=== PATIENT | male | born 1955 | race Caucasian/White ===

== ENCOUNTER 2018-03-31 14:01 | Inpatient (IN) | payer OTHER ==
[2018-03-31] MEDS ORDERED: FUROSEMIDE 40 MG/4 ML VIAL ONE (14:46)
[2018-03-31] MEDS ORDERED: METOPROLOL TARTRATE 5 MG/5 ML INJ IV ONE (14:46)
[2018-03-31] MEDS ORDERED: DIGOXIN 0.25 MG/ML AMP ONE (14:46)
[2018-03-31 15:06] LABS: Absolute Lymphocytes (CBC) 0.8 K/uL (0.7-4.9); Absolute Monocytes 0.4 K/uL (0.1-1.3); Absolute Neutrophil 6.7 K/uL (1.8-8.0); Basophils % 1.1 % (0-1.3); Eosinophils % 5.1 % (0-4.4); Hematocrit 31.2 % (39.6-49.0); Lymphocytes % 9.9 % (15.3-44.8); MCH 32.3 pg (27.0-35.0); MCV 98.3 fL (80-100); MPV 10.6 fL (7.6-11.3); Monocytes % 4.8 % (3.3-12.3); RBC Red Blood Cell Count 3.18 M/uL (4.33-5.43)
[2018-03-31 15:12] LABS: Protime INR 1.18
[2018-03-31 15:47] LABS: Albumin 2.7 g/dL (3.4-5.0); Bilirubin Direct 0.3 mg/dL (0-0.2); Bilirubin Total 0.8 mg/dL (0.2-1.0); Magnesium 2.9 mg/dL (1.8-2.4); Troponin (Emerg Dept Use Only) 0.06 ng/mL (0.0-0.045)
[2018-03-31 16:05] LABS: Urine Blood TRACE (NEG); Urine Glucose TRACE (NEG); Urine Protein 3+ (NEG)
--- NOTE | 2018-03-31 16:35 | EDPHYS ---
Physician Documentation [facility] Name: Remington Shaver Age: 62 yrs Sex: Male : 1955 Arrival Date: 03/31/2018 Time: 14:07 Bed 18 Private MD: Taye Finch ED Physician Delfino Dominguez HPI: 03/31 14:59 This 62 yrs old Male presents to ER via Ambulatory with complaints of jr8 Shortness Of Breath. 14:59 The patient has shortness of breath at rest. Onset: The symptoms/episode began/occurred jr8 gradually, 1 week(s) ago. Duration: The symptoms are continuous. The patient's shortness of breath is aggravated by walking. Associated signs and symptoms: Pertinent negatives: non-productive cough, dizziness, fever, hemoptysis, nausea, vomiting. Severity of symptoms: At their worst the symptoms were moderate in the emergency department the symptoms are unchanged. It is unknown whether or not the patient has had similar symptoms in the past. The patient has not recently seen a physician. Patient with history of CHF, ESRD. Non compliant. Stated that he has had increased swelling over the past week or so. Stated that he is now having shortness of breath . Historical: - Allergies: 14:14 PENICILLINS; hj - Home Meds: 14:14 hydrochlorothiazide 80 mg Oral tab 1 tab once daily [Active]; hj - PMHx: 14:14 CHF; Diabetes - NIDDM; Hypertension; kidney disease; hj - PSHx: 14:14 R foor partial amputaion; Appendectomy; hj - Immunization history:: Adult Immunizations not up to date. - Social history:: Smoking status: Patient uses tobacco products, smokes one pack cigarettes per day. Patient/guardian denies using alcohol. - Ebola Screening: : Patient negative for fever greater than or equal to 101.5 degrees Fahrenheit, and additional compatible Ebola Virus Disease symptoms Patient denies exposure to infectious person Patient denies travel to an Ebola-affected area in the 21 days before illness onset. ROS: 14:59 Eyes: Negative for injury, pain, redness, and discharge, ENT: Negative for injury, jr8 pain, and discharge, Neck: Negative for injury, pain, and swelling, Abdomen/GI: Negative for abdominal pain, nausea, vomiting, diarrhea, and constipation, Back: Negative for injury and pain, MS/Extremity: Negative for injury and deformity, Skin: Negative for injury, rash, and discoloration, Neuro: Negative for headache, weakness, numbness, tingling, and seizure. 14:59 Cardiovascular: Positive for chest pain, edema, orthopnea. 14:59 Respiratory: Positive for orthopnea, shortness of breath. Exam: 14:59 Eyes: Pupils equal round and reactive to light, extra-ocular motions intact. Lids and jr8 lashes normal. Conjunctiva and sclera are non-icteric and not injected. Cornea within normal limits. Periorbital areas with no swelling, redness, or edema. ENT: Nares patent. No nasal discharge, no septal abnormalities noted. Tympanic membranes are normal and external auditory canals are clear. Oropharynx with no redness, swelling, or masses, exudates, or evidence of obstruction, uvula midline. Mucous membranes moist. Neck: Trachea midline, no thyromegaly or masses palpated, and no cervical lymphadenopathy. Supple, full range of motion without nuchal rigidity, or vertebral point tenderness. No Meningismus. Abdomen/GI: Soft, non-tender, with normal bowel sounds. No distension or tympany. No guarding or rebound. No evidence of tenderness throughout. Back: No spinal tenderness. No costovertebral tenderness. Full range of motion. Skin: Warm, dry with normal turgor. Normal color with no rashes, no lesions, and no evidence of cellulitis. MS/ Extremity: Pulses equal, no cyanosis. Neurovascular intact. Full, normal range of motion. Neuro: Awake and alert, GCS 15, oriented to person, place, time, and situation. Cranial nerves II-XII grossly intact. Motor strength 5/5 in all extremities. Sensory grossly intact. Cerebellar exam normal. Normal gait. 14:59 Cardiovascular: Rate: tachycardic, Rhythm: irregularly irregular, Pulses: Pulses are 2+ in right radial artery and left radial artery. Heart sounds: normal, normal S1and S2, no S3 or S4, no murmur, no rub, no gallop, Edema: 3+ edema to level of waist, pubic area, left upper thigh, left lower thigh, left knee, left midcalf, left ankle, left foot, right upper thigh, right lower thigh, right knee, right midcalf, right ankle and right foot. 14:59 Respiratory: the patient does not display signs of respiratory distress, Respirations: normal, symetrical, no use of accessory muscles, no grunting, no evidence of nasal flaring, no prolonged exhalations, no pursed lip breathing, no retractions, no shallow respirations, no splinting, no tachypnea, Breath sounds: wheezing: expiratory that is mild, is heard diffusely. Vital Signs: 14:16 BP 132 / 84; Pulse 115; Resp 20; Temp 97.5(TE); Pulse Ox 96% on R/A; Weight 95.25 kg; hj Height 5 ft. 11 in. (180.34 cm); Pain 7/10; 14:30 BP 125 / 80; Pulse 134; Resp 22 S; Pulse Ox 97% on R/A; jl7 14:40 BP 125 / 80; Pulse 160; Resp 22 S; Pulse Ox 96% on R/A; jl7 14:45 BP 128 / 89; Pulse 147; Resp 20 S; Pulse Ox 97% on R/A; jl7 14:59 BP 128 / 89; Pulse 119; Resp 20; Pulse Ox 95% on R/A; mh5 15:58 BP 122 / 70; Pulse 107; Resp 21; Pulse Ox 98% on R/A; jl7 17:13 BP 120 / 85; Pulse 123; Resp 24 S; Pulse Ox 96% on R/A; jl7 18:11 BP 137 / 97; Pulse 127; Resp 18 S; Pulse Ox 97% on R/A; jl7 19:04 BP 127 / 85; Pulse 114; Resp 19; Pulse Ox 98% on R/A; lp1 14:16 Body Mass Index 29.29 (95.25 kg, 180.34 cm) hj 14:40 provider notified of HR jl7 MDM: 14:18 Patient medically screened. deacon 16:33 Data reviewed: vital signs, nurses notes, lab test result(s), EKG, radiologic studies, jr8 CT scan, plain films. Data interpreted: Pulse oximetry: on room air is 98 %. Interpretation: normal. Counseling: I had a detailed discussion with the patient and/or guardian regarding: the historical points, exam findings, and any diagnostic results supporting the discharge/admit diagnosis, lab results, radiology results, the need for further work-up and treatment in the hospital. Physician consultation: Elisa Hamilton MD was called at 16:33, was contacted at 16:33, regarding admission, to the telemetry unit. consult, patient's condition, and will see patient. 03/31 14:36 Order name: Basic Metabolic Panel; Complete Time: 15:54 8 03/31 14:36 Order name: CBC with Diff; Complete Time: 15:08 8 03/31 14:36 Order name: LFT's; Complete Time: 15:54 jr8 03/31 14:36 Order name: Magnesium; Complete Time: 15:54 jr8 03/31 14:36 Order name: NT PRO-BNP; Complete Time: 15:54 8 03/31 14:36 Order name: PT-INR; Complete Time: 15:37 8 03/31 14:36 Order name: Troponin (emerg Dept Use Only); Complete Time: 15:54 jr8 03/31 15:26 Order name: Urine Dipstick--Ancillary (enter results); Complete Time: 16:23 bd 03/31 16:53 Order name: CBC with Automated Diff EDMS 03/31 16:53 Order name: CBC with Automated Diff; Complete Time: 17:56 EDMS 03/31 16:53 Order name: CBC with Automated Diff EDMS 03/31 16:53 Order name: CBC with Automated Diff EDMS 03/31 16:53 Order name: Comprehensive Metabolic Panel EDMS 03/31 16:53 Order name: Comprehensive Metabolic Panel; Complete Time: 17:56 EDMS 03/31 14:36 Order name: XRAY Chest (1 view); Complete Time: 17:56 8 03/31 14:36 Order name: EKG; Complete Time: 14:37 8 03/31 14:36 Order name: Cardiac monitoring; Complete Time: 15:04 8 03/31 14:36 Order name: EKG - Nurse/Tech; Complete Time: 14:58 8 03/31 14:36 Order name: IV Saline Lock; Complete Time: 15:04 8 03/31 14:36 Order name: Labs collected and sent; Complete Time: 15:04 8 03/31 15:56 Order name: CT Chest Wo Con; Complete Time: 16:47 8 03/31 16:46 Order name: CONS Physician Consult EDMT 03/31 16:53 Order name: CONS Physician Consult EDMT 03/31 16:53 Order name: Renal EDMT 03/31 16:53 Order name: Echo with Doppler EDMT 03/31 16:53 Order name: Comprehensive Metabolic Panel EDMT 03/31 16:53 Order name: Comprehensive Metabolic Panel EDMT 03/31 14:36 Order name: O2 Per Protocol; Complete Time: 15:04 jr8 03/31 14:36 Order name: O2 Sat Monitoring; Complete Time: 15:04 jr8 03/31 14:36 Order name: Sorto; Complete Time: 14:57 jr8 Administered Medications: 14:42 Drug: Digoxin 0.5 mg Route: IVP; Site: left wrist; ss 15:49 Follow up: Response: No adverse reaction jl7 14:47 Drug: Metoprolol 5 mg Route: IVP; Site: right antecubital; ss 15:49 Follow up: Response: No adverse reaction jl7 14:54 Drug: Lasix 40 mg Route: IVP; Site: left wrist; ss 15:49 Follow up: Response: No adverse reaction jl7 Disposition: 04/01 07:15 Co-signature as Attending Physician, Delfino Dominguez MD I agree with the assessment and deacon plan of care. Disposition: 03/31/18 16:35 Hospitalization ordered by Elisa Hamilton for Inpatient Admission. Preliminary diagnosis are Acute combined systolic (congestive) and diastolic (congestive) heart failure, Chronic kidney disease (CKD), Anasarca , Atrial fibrillation and flutter - with RVR. - Bed requested for Telemetry/MedSurg (Inpatient). - Status is Inpatient Admission. lp1 - Condition is Fair. - Problem is new. - Symptoms have improved. UTI on Admission? No Signatures: Dispatcher [employer] [facility] Lilia Quintero Delfino Dominguez MD MD cha Smirch, Shelby, RN RN ss Niecy Hudson RN RN lp1 Tulio Carvajal PA PA jr8 Enoch Lobato RN RN hj Leal, Jahala RN jl7 Corrections: (The following items were deleted from the chart) 03/31 18:13 16:35 Hospitalization Ordered by Elisa Hamilton MD for Inpatient Admission. Preliminary bd diagnosis is Acute combined systolic (congestive) and diastolic (congestive) heart failure; Chronic kidney disease (CKD); Anasarca ; Atrial fibrillation and flutter - with RVR. Bed requested for Telemetry/MedSurg (Inpatient). Status is Inpatient Admission. Condition is Fair. Problem is new. Symptoms have improved. UTI on Admission? No. jr8 20:01 18:13 03/31/2018 16:35 Hospitalization Ordered by Elisa Hamilton MD for Inpatient lp1 Admission. Preliminary diagnosis is Acute combined systolic (congestive) and diastolic (congestive) heart failure; Chronic kidney disease (CKD); Anasarca ; Atrial fibrillation and flutter - with RVR. Bed requested for Telemetry/MedSurg (Inpatient). Status is Inpatient Admission. Condition is Fair. Problem is new. Symptoms have improved. UTI on Admission? No. bd
--- NOTE | 2018-03-31 16:35 | ER ---
Nurse's Notes [facility] Name: Remington Shaver Age: 62 yrs Sex: Male : 1955 Arrival Date: 03/31/2018 Time: 14:07 Bed 18 Private MD: Taye Finch Diagnosis: Acute combined systolic (congestive) and diastolic (congestive) heart failure;Chronic kidney disease (CKD);Anasarca ;Atrial fibrillation and flutter-with RVR Presentation: 03/31 14:09 Presenting complaint: Patient states: i started having shortness of breath for 2 weeks hj now, i think im retaining fluids again; i feel like my legs, my belly and face are swollen; and this sore throat of mine started 2 weeks ago too; denies fever and chills; reports cough;. Transition of care: patient was not received from another setting of care. Onset of symptoms was March 18, 2018. Risk Assessment: Do you want to hurt yourself or someone else? Patient reports no desire to harm self or others. Initial Sepsis Screen: Does the patient meet any 2 criteria? No. Patient's initial sepsis screen is negative. Does the patient have a suspected source of infection? No. Patient's initial sepsis screen is negative. Care prior to arrival: None. 14:09 Method Of Arrival: Ambulatory 14:09 Acuity: TOMASA 3 hj Triage Assessment: 14:15 General: Appears in no apparent distress. uncomfortable, Behavior is calm, cooperative, hj appropriate for age. Pain: Complains of pain in throat. EENT: Reports pain in throat. Historical: - Allergies: 14:14 PENICILLINS; - Home Meds: 14:14 hydrochlorothiazide 80 mg Oral tab 1 tab once daily [Active]; - PMHx: 14:14 CHF; Diabetes - NIDDM; Hypertension; kidney disease; - PSHx: 14:14 R foor partial amputaion; Appendectomy; hj - Immunization history:: Adult Immunizations not up to date. - Social history:: Smoking status: Patient uses tobacco products, smokes one pack cigarettes per day. Patient/guardian denies using alcohol. - Ebola Screening: : Patient negative for fever greater than or equal to 101.5 degrees Fahrenheit, and additional compatible Ebola Virus Disease symptoms Patient denies exposure to infectious person Patient denies travel to an Ebola-affected area in the 21 days before illness onset. Screenin:15 Abuse screen: Denies threats or abuse. Denies injuries from another. Nutritional hj screening: No deficits noted. Tuberculosis screening: No symptoms or risk factors identified. Fall Risk None identified. Assessment: 14:15 Respiratory: Airway is patent Respiratory effort is even, unlabored, Respiratory hj pattern is regular, symmetrical, EENT: Throat. 14:30 General: Appears in no apparent distress. uncomfortable, Behavior is calm, cooperative, jl7 appropriate for age. Pain: Denies pain. Neuro: Level of Consciousness is awake, alert, obeys commands, Oriented to person, place, time, situation. Cardiovascular: Heart tones present Patient's skin is warm and dry. Respiratory: Airway is patent Respiratory effort is even, unlabored, Respiratory pattern is regular, symmetrical, Breath sounds with wheezes bilaterally. GI: No signs and/or symptoms were reported involving the gastrointestinal system. : No signs and/or symptoms were reported regarding the genitourinary system. EENT: Throat is clear. Derm: Skin is dry, Skin is pale, Skin temperature is warm. Musculoskeletal: No signs and/or symptoms reported regarding the musculoskeletal system. 15:30 Reassessment: Patient appears in no apparent distress at this time. Patient and/or jl7 family updated on plan of care and expected duration. Pain level reassessed. Patient is alert, oriented x 3, equal unlabored respirations, skin warm/dry/pink. 16:30 Reassessment: Patient and/or family updated on plan of care and expected duration. Pain jl7 level reassessed. Patient is alert, oriented x 3, equal unlabored respirations, skin warm/dry/pink. 17:10 Reassessment: Dr. Hamilton at bedside discussing plan of care. jl7 17:40 Reassessment: [place] please pass on to floor nurse to call jl7 his niece, She Gonzalez at [phone]. 18:12 Reassessment: Pt laying in bed with eyes closed, respirations even and unlabored, no jl7 signs of distress noted at this time. 18:25 Reassessment: Called floor to give report at 1815, placed on hold for 5 minutes, hung jl7 up and called back at 1820, placed on hold for 5 minutes, hung up and called back at 1825. Night charge nurse stated she will night nurse call back at 1845 prior to shift change. 19:03 Reassessment: Patient appears in no apparent distress at this time. Patient and family lp1 aware of pending admission. Neuro: Level of Consciousness is awake, alert, obeys commands. Respiratory: Respiratory effort is even. Derm: Skin is intact, Skin is dry, Skin is pale. Vital Signs: 14:16 BP 132 / 84; Pulse 115; Resp 20; Temp 97.5(TE); Pulse Ox 96% on R/A; Weight 95.25 kg; hj Height 5 ft. 11 in. (180.34 cm); Pain 7/10; 14:30 BP 125 / 80; Pulse 134; Resp 22 S; Pulse Ox 97% on R/A; jl7 14:40 BP 125 / 80; Pulse 160; Resp 22 S; Pulse Ox 96% on R/A; jl7 14:45 BP 128 / 89; Pulse 147; Resp 20 S; Pulse Ox 97% on R/A; jl7 14:59 BP 128 / 89; Pulse 119; Resp 20; Pulse Ox 95% on R/A; mh5 15:58 BP 122 / 70; Pulse 107; Resp 21; Pulse Ox 98% on R/A; jl7 17:13 BP 120 / 85; Pulse 123; Resp 24 S; Pulse Ox 96% on R/A; jl7 18:11 BP 137 / 97; Pulse 127; Resp 18 S; Pulse Ox 97% on R/A; jl7 19:04 BP 127 / 85; Pulse 114; Resp 19; Pulse Ox 98% on R/A; lp1 14:16 Body Mass Index 29.29 (95.25 kg, 180.34 cm) hj 14:40 provider notified of HR jl7 ED Course: 14:07 Patient arrived in ED. mr 14:07 Taye Finch MD is Private Physician. mr 14:12 Triage completed. hj 14:15 Arm band placed on right wrist. hj 14:16 Patient has correct armband on for positive identification. Placed in gown. Bed in low hj position. Call light in reach. Side rails up X 1. 14:17 security monitor on. Pulse ox on. NIBP on. jl7 14:17 Warm blanket given. jl7 14:18 Delfino Dominguez MD is Attending Physician. [facility] 14:20 Initial lab(s) drawn, by me, sent to lab. Inserted saline lock: 20 gauge in right jl7 antecubital area, using aseptic technique. Blood collected. 14:25 Inserted saline lock: 22 gauge in left wrist, using aseptic technique. jl7 14:25 EKG done, by ED staff, reviewed by Tulio JEFFERSON. jl7 14:28 Tulio Carvajal PA is PHCP. jr8 14:56 Urine collected: clean catch specimen, clear. Sorto cath inserted, using sterile mh5 technique, 16 Fr., by me, balloon inflated, urine specimen collected. 15:41 XRAY Chest (1 view) In Process Unspecified. EDMS 15:41 X-ray completed. Portable x-ray completed in exam room. Patient tolerated procedure ka well. 15:44 Primary Nurse role handed off by Gloria Garner RN jl7 15:44 Terrell Collazo, SHEY is Primary Nurse. jl7 16:[address] via stretcher. nj 16:21 CT completed. Patient tolerated procedure well. Patient moved back from CT. nj 16:22 CT Chest Wo Con In Process Unspecified. EDMS 16:34 Elisa Hamilton MD is Hospitalizing Provider. jr8 18:59 Primary Nurse role handed off by Terrell Collazo RN jl7 19:03 Niecy Hudson, SHEY is Primary Nurse. lp1 19:04 No provider procedures requiring assistance completed. Patient admitted, IV remains in lp1 place. Administered Medications: 14:42 Drug: Digoxin 0.5 mg Route: IVP; Site: left wrist; ss 15:49 Follow up: Response: No adverse reaction jl7 14:47 Drug: Metoprolol 5 mg Route: IVP; Site: right antecubital; ss 15:49 Follow up: Response: No adverse reaction jl7 14:54 Drug: Lasix 40 mg Route: IVP; Site: left wrist; ss 15:49 Follow up: Response: No adverse reaction jl7 Outcome: 16:35 Decision to Hospitalize by Provider. jr8 19:05 Condition: stable lp1 19:05 Instructed on the need for admit. 19:33 Admitted to Med/surg accompanied by tech, via stretcher, room 221, with chart, Report lp1 called to SHEY Mckenzie 20:01 Patient left the ED. lp1 Signatures: Dispatcher [employer] EDMS Delfino Dominguez MD MD cha Rivera, [place] mr Gloria Garner RN RN Niecy Hudson RN RN lp1 Tulio Carvajal, Enoch Mata RN RN Carolin [place], Hanny Mckeon [facility] Terrell Collazo RN RN jl7 Corrections: (The following items were deleted from the chart) 15:01 14:42 Digoxin 0.5 mg IVP in left antecubital ss 15:44 14:38 Gloria Garner RN is Primary Nurse. [facility] 17:12 15:58 BP 122 / 70; Pulse 57bpm; Resp 21bpm; Pulse Ox 98% RA; [facility]7
--- NOTE | 2018-03-31 16:42 | RAD REPORT ---
EXAM DESCRIPTION: CT - Thorax Wo Con - 03/31/2018 4:22 pm CLINICAL HISTORY: Shortness of breath COMPARISON: Portable chest March 31 TECHNIQUE: Axial 5 mm thick images of the chest were obtained without IV contrast. All CT scans are performed using dose optimization technique as appropriate and may include automated exposure control or mA/KV adjustment according to patient size. FINDINGS: No focal consolidation or underlying mass lesion. There is hazy ground-glass opacification in the aerated lung sanchez that may be mild alveolar edema or atelectasis. Infection is unlikely. A large right pleural effusion is present. There is complete right lower lobe atelectasis and partial l eft middle lobe atelectasis. Minimal pleural thickening on the right side as well. No left-sided pleu ral effusion. There is no pneumothorax. No abnormal mediastinal or hilar masses or lymphadenopathy seen. No gross aortic or pulmonary artery finding suspected. No pericardial thickening or effusion. Coronary artery calcifications are present . No chest wall mass or abnormal axillary lymphadenopathy. Mild bilateral gynecomastia. Thoracic spine degenerative changes are present. IMPRESSION: Large right pleural effusion with complete right lower lobe and partial right middle lob e atelectasis. Hazy ground-glass opacities in the lung sanchez could be atelectasis or alveolar edema. Infection is n ot suspected.
[2018-03-31] MEDS ORDERED: ACETAMINOPHEN 500 MG TAB PO PRN (16:46)
[2018-03-31] MEDS ORDERED: METOPROLOL TARTRATE 5 MG/5 ML INJ IV PRN (16:46)
[2018-03-31] MEDS ORDERED: ONDANSETRON 4 MG/2 ML VIAL IV PRN (16:46)
[2018-03-31] MEDS ORDERED: ALBUTEROL 2.5 MG/3 ML NEB SOL NEB PRN (16:46)
--- NOTE | 2018-03-31 17:35 | RAD REPORT ---
EXAM DESCRIPTION: Renéet Single View03/31/2018 3:41 pm CLINICAL HISTORY: sob COMPARISON: 2016 FINDINGS: Moderate right pleural effusion is present with right basilar atelectasis. Left lung appears clear of acute infiltrate. The heart is mildly enlarged IMPRESSION: Moderate right pleural effusion
[2018-03-31 21:21] LABS: Thyroid Stimulating Hormone 6.04 uIU/mL (0.360-3.740)
[2018-03-31] MEDS: FUROSEMIDE 40 MG/4 ML VIAL IV SCH (22:19)
[2018-03-31] MEDS: ENOXAPARIN 100 MG/ML SYR SQ SCH (22:19)
[2018-03-31] MEDS: METOPROLOL TAR 25 MG TAB PO SCH (22:20)
[2018-03-31] MEDS: INSULIN -REGULAR HUMAN 50 UNIT/0.5 ML ML SQ SCH (22:21)
[2018-03-31] MEDS: SODIUM BICARB 325 MG TAB PO SCH (22:21)
--- NOTE | 2018-03-31 23:08 | EKG ---
Test Date: 2018-03-31 Test Time: 14:25:51 Coordinate Measuring Machine Operator: JEREMY MEASUREMENT RESULTS: Intervals: Rate: 137 ND: QRSD: 94 QT: 318 QTc: 480 [place]: P: ND: QRS: 40 T: 246 INTERPRETIVE STATEMENTS: Atrial fibrillation with rapid ventricular response with premature ventricular or aberrantly conducted complexes Low voltage QRS Nonspecific ST and T wave abnormality Abnormal ECG Compared to ECG 04/13/2015 18:24:20 Ventricular premature complex(es) now present Low QRS voltage now present ST (T wave) deviation now present Sinus tachycardia no longer present Electronically Signed On 03-31-18 23:08:11 CDT by Lauri Valdez
[2018-03-31 23:50] LABS: Urine Appearance CLEAR; Urine Bilirubin NEGATIVE (NEG); Urine Blood 2+ (NEG); Urine Color YELLOW; Urine Glucose NEGATIVE (NEG); Urine Protein 2+ (NEG); Urine Urobilinogen 0.2 mg/dL (0.2-1.0); Urine pH 5.5 (5.0-7.0)
[2018-04-01 00:21] LABS: UR MICROALBUMIN 70.4 mg/dL (< 1.9)
[2018-04-01 00:33] LABS: Urine Bacteria <20 /HPF (NONE SEEN); Urine Culture Reflex Order REFLEXED; Urine RBC 20-50 /HPF (NONE SEEN)
[2018-04-01 01:10] VITALS: BMI 33.6
--- NOTE | 2018-04-01 02:07 | HP ---
Date of Admission: 03/31/2018 Consultants: Dr. Valdez with Cardiology and Dr. Eagle with Nephrology. Primary Care Physician: Taye Finch M.D. Code Status: Full. Chief Complaint: Shortness of breath, cough, generalized malaise. History Of Present Illness: The patient is a 62-year-old male with past medical history of diabetes, hypertension, apparent kidney issues after nephropathy from antibiotics when the patient had a one m onth stay in the hospital for his diabetic foot wound with complications and sepsis, as well as histo ry of 3-pack per day tobacco use, comes in with 2 week duration of shortness of breath, dyspnea upon exertion, lower extremity swelling, edema, and some dry cough. The patient denies any fevers, does r eport some chills. No ill contacts. No sputum production. The patient's symptoms are constant, mod erate, progressively worsening, gradual. The patient is noncompliant with his medications. He state s he just does not want to take them because he is "bullet proof." The patient's vital signs upon ar rival showed heart rate in the 150s. He was in atrial fibrillation. His workup revealed normal whit e count. His creatinine was elevated at 5.6, which is above his baseline of about 2.5 from 2016. e patient's BNP was 30,000. He was given digoxin, Lopressor, and Lasix. His rate improved to the 11 0s to 120s. He was then referred for admission. When seen in the ER, he was awake, alert, oriented x3, in some moderate distress. Past Medical History: Diabetes, hypertension, chronic kidney disease. The patient states he does no t have COPD despite being listed in his medical history. Past Surgical History: Right foot amputation, appendectomy, dental extractions. Allergies: PENICILLIN, CAUSES ANAPHYLAXIS. Home Medications: None. Social History: The patient smokes 3 packs per day for several years. No alcohol use or illicit doug g use. The patient lives at home by himself. Independent in his activities of daily living. Family History: Mother had heart disease. Father had heart disease, GI disease, and liver disease. Review of Systems: An 11-point system reviewed, negative except as per HPI. Physical Examination: Vital Signs: Blood pressure 132/84, pulse 115, respirations 20, temperature 97.5, O2 96% on room air . General: Awake, alert, oriented x3, in some moderate respiratory distress, appears older than stated age, ill-appearing male. HEENT: Normocephalic, atraumatic. PERRLA. EOMI. Dry mucous membranes. Oropharynx is clear. Poor dentition. Conjunctiva is anicteric. Neck: Supple. The patient has jugular venous distention. Trachea midline. CV: S1, S2. Irregularly irregular, rapid rate. Peripheral pulses are weak bilaterally. No murmurs . Respiratory: Diminished breath sounds on the right. Crackles are heard. No wheezing or stridor. T he patient is tachypneic, use of accessory muscles present. Gastrointestinal: Abdomen is soft, distended, and nontender. Positive bowel sounds. No guarding or rigidity. Extremities: No clubbing or cyanosis. The patient has 3+ edema of bilateral lower extremities. No calf tenderness. Neuro: Cranial nerves 2 through 12 intact grossly. No focal neurological deficit. Speech is normal . Strength is 5/5 bilateral lower extremities. Musculoskeletal: The patient has right foot amputation. Skin: The patient has chronic venous stasis changes of the lower extremities. Otherwise, no rashes. Psych: Mood is okay. Affect is full. Insight and judgment are poor. Laboratory Data: Sodium 142, potassium 5, chloride 113, CO2 19, BUN 84, creatinine 5.6, glucose 287, calcium 7.1, magnesium 2.9. Troponin 0.06. BNP 30,808. Albumin 2.7. WBC 8.5, H and H 10.3 and 31 .2, platelets 195, neutrophils 71%. INR 1.18. UA shows negative nitrite, negative leukocyte esteras e, 3+ protein. CT scan of the chest, personally reviewed, shows large right pleural effusion with co mplete right lower lobe and partial right middle lobe atelectasis, hazy ground-glass opacities in the lung sanchez, could be atelectasis or alveolar edema, infection not suspected. Chest x-ray shows mod erate right pleural effusion. Assessment: A 62-year-old male with 1.Acute respiratory distress. 2.Atrial fibrillation with rapid ventricular response, new onset. 3.Noncompliance. 4.Essential hypertension. 5.Acute on chronic kidney disease. 6.Diabetes mellitus type 2, [id number], with hyperglycemia. 7.Normocytic, normochromic anemia. 8.Mild protein calorie malnutrition. Albumin is 2.7. 9.Hypocalcemia. 10.Gastrointestinal and deep venous thrombosis prophylaxis with proton pump inhibitor and Lovenox. Plan: Admit the patient to Med-Surg, place as inpatient with remote cardiac telemetry. Will start o n sliding scale insulin. Will have Lopressor IV p.r.n. for rate greater than 130. Will start on met oprolol. Cardiology has been consulted. We will continue with Lasix IV. We will hold off on RICK in hibitor due to elevated creatinine. We will consult Nephrology, Dr. Eagle. We will monitor creati nine, and I and Os, daily weights. Fluid restricted diet. BNP is elevated at 30,000. Chest x-ray d oes show some large pleural effusions and atelectasis. We will continue to monitor. May need dialys is if unable to have good urinary output and if he does not respond to Lasix. Overall, the patient h as a guarded prognosis due to his condition and noncompliance. /ADAN Voice ID: [id number]
[2018-04-01] MEDS: METOPROLOL TAR 25 MG TAB PO SCH ×2 (05:28→17:05)
[2018-04-01 05:48] LABS: Absolute Monocytes 0.5 K/uL (0.1-1.3); Absolute Neutrophil 7.2 K/uL (1.8-8.0); Basophils % 1.3 % (0-1.3); Eosinophils % 5.3 % (0-4.4); Hematocrit 29.7 % (39.6-49.0); Lymphocytes % 10.2 % (15.3-44.8); MCV 97.6 fL (80-100); MPV 10.6 fL (7.6-11.3); Monocytes % 5.2 % (3.3-12.3); RBC Red Blood Cell Count 3.04 M/uL (4.33-5.43)
[2018-04-01 06:02] LABS: Albumin 2.6 g/dL (3.4-5.0); Bilirubin Total 0.7 mg/dL (0.2-1.0); Phosphorus 6.6 mg/dL (2.5-4.9); Potassium 5.3 mmol/L (3.5-5.1); Protein, Total 6.8 g/dL (6.4-8.2); Uric Acid 11.5 mg/dL (3.5-7.2)
[2018-04-01] MEDS: INSULIN -REGULAR HUMAN 50 UNIT/0.5 ML ML SQ SCH ×4 (07:30→20:40)
[2018-04-01] MEDS ORDERED: INFLUENZA VACCINE (for 3y+) 0.5 ML DOSE IMVAC ONE (08:00)
[2018-04-01] MEDS: ENOXAPARIN 100 MG/ML SYR SQ SCH (09:25)
[2018-04-01] MEDS: FUROSEMIDE 40 MG/4 ML VIAL IV SCH ×3 (09:25→22:58)
[2018-04-01] MEDS: SEVELAMER CARBONATE 800 MG TABLET PO SCH ×3 (09:25→17:05)
[2018-04-01] MEDS: VITAMIN D 5,000 UNIT CAP PO SCH (09:26)
[2018-04-01] MEDS: SODIUM BICARB 325 MG TAB PO SCH ×3 (09:26→20:02)
[2018-04-01] MEDS: CALCITROL 0.25 MCG CAP PO SCH (09:26)
[2018-04-01] MEDS ORDERED: SOD POLYSTYREN SUL 15 GM/60 ML UCUP PO ONE (10:03)
--- NOTE | 2018-04-01 13:28 | CON ---
Date of Consultation: 04/01/2018 Reason For Consultation: Shortness of breath, congestive heart failure, and atrial fibrillation. History Of Present Illness: Mr. Shaver is a 62-year-old white male, who basically has severe renal fa ilure with refuses dialysis. He had a creatinine of 5.6 today. He came in with paroxysmal atrial fi brillation that has resolved already. He came in mostly with shortness of breath, diabetes, and hype rtension. Has had a foot amputation on the right side secondary to diabetes and vasculopathy. He ca me in with shortness of breath, was found to have a very large effusion on the CT. His BNP was 30,80 8. His troponin was 0.06. His hemoglobin was 10.3. Echocardiogram is pending. Past Medical History: As stated above. Allergies: PENICILLIN. Review of Systems: Negative. Social History: Positive for the fact that he refuses dialysis. Denies tobacco, alcohol, or drug us e. Medications: At home include hydrochlorothiazide that he takes as needed. Family History: Noncontributory. Physical Examination: Vital Signs: Stable. He was in sinus rhythm today. HEENT: Negative. Neck: Supple without any bruit, lymphadenopathy, JVD, or thyromegaly. Chest: Exam was abnormal on the left. On the right side he had no breath sounds to the mid lung. Heart: Exam reveals regular rhythm and rate with an S4, gallops. No murmurs or rubs. Abdomen: Benign. Extremities: Revealed no clubbing, cyanosis. He had trace edema. He is status post right toes ampu tation. Diagnostic Data: As stated earlier. Impression And Plan: 1.Paroxysmal atrial fibrillation secondary to hypoxia from pleural effusion. 2.Shortness of breath secondary to the pleural effusion. I think he needs a thoracentesis and his P ulmonary consult. We will see what the echocardiogram shows, but I think this going to be normal. 3.End-stage renal disease. Creatinine of 5.6, hemoglobin 10.3. Refusing dialysis. 4.Elevated troponin and BNP secondary to renal failure. 5.Diabetes. 6.Hypertension. The patient's atrial fibrillation has resolved. He is not a candidate for anticoagulation with his r enal failure. He may need some low-dose beta fitz for rate control, later maybe to prevent his at rial fibrillation. But again as stated earlier, he needs really to be dialyzed. He needs to have hi s effusion drain, would be good. Dr. Hamilton discusses his case with the family and maybe social worke r and have Nephrology give dialysis if possible. KWAKU/ADAN Voice ID: [id number] Report ID: [id number]
--- NOTE | 2018-04-01 17:07 | PN ---
Date of Progress Note: 04/01/2018 Subjective: The patient seen and examined. Chart reviewed and case discussed with RN, Dr. Ghotra and Dr. Yoder. The patient continues to be short of breath. States his breathing is somewhat better. Care discussion with patient regarding and his refusal of dialysis. He does not want to be on dialysis. He has been on temporary dialysis before and does not want to do with the hassle of going 3 times a week going for 4 hours. He understands the risk associated with refusing dialysis. Niece at the bedside. The patient also wished to be do not resuscitate. He does not wish to have CPR or mechanical ventilation in case of cardiorespiratory arrest. The patient understands complications. He states that would rather than be on dialysis. Review of Systems: Negative except as above. Medications: List reviewed. Physical Examination: Vital Signs: Temperature 97, heart rate 113, blood pressure 144/65, respirations 18, O2 94% on room air. General: Awake, alert, oriented x3, and some mild respiratory distress. Appears older than stated age, ill-appearing male, obese. CV: S1, S2, irregularly irregular. No murmurs. Peripheral pulses are weak bilaterally. Respiratory: Diminished breath sounds. No wheezing. The patient is slightly tachypneic. No use of accessory muscles. Gastrointestinal: Abdomen is soft, nontender, nondistended. Positive bowel sounds. No guarding or rigidity. Extremities: No clubbing, cyanosis. The patient has 3+ edema bilateral lower extremities. Neurologic: Nonfocal. Laboratory Data: Sodium 144, potassium 5.3, chloride 113, CO2 21, BUN is 90, creatinine is 5.4, glucose 221, uric acid is 11.5, calcium 7.2, phosphorus 6.6, albumin is 2.6. WBC 9.3, H and H 9.7 and 29.7, platelets 190, neutrophils 78%. Urine culture pending. Assessment And Plan: A 62-year-old male with: 1. Acute respiratory distress secondary to pleural effusions and volume overload secondary to chronic kidney disease, currently on supplemental oxygen. The patient may need thoracentesis. 2. Atrial fibrillation with rapid ventricular response, new onset. Currently on beta-blockers. Did have some mild troponin leak. No chest pain. Appreciate Dr. Ghotra's input likely due to above. 3. Noncompliance intentional. The patient states that he and does not want to take any medications at home, did not wish to go to a PCP in the past and currently does not want hemodialysis. 4. Essential hypertension. 5. Acute on chronic kidney disease stage 5. Dr. Eagle has been consulted. The patient essentially will need dialysis, however, he refusing at this point. Care and comfort measures have been offered to him. He wishes to be DNR, however, not want hospice at this time. 6. Diabetes mellitus type 2 non-insulin requiring with hyperglycemia. We will continue his sliding scale insulin and check blood glucose levels. 7. Normocytic normochromic anemia. Monitor H and H, likely anemia of chronic disease secondary to chronic kidney problems. 8. Mild protein-calorie malnutrition. Albumin is 2.7. 9. Hypocalcemia. 10. Obesity, 34.2. 11. Gastrointestinal and deep venous thrombosis prophylaxis with PPI and Lovenox renally dose. Plan: We will consult Pulmonology. The patient may need thoracentesis as he is refusing dialysis. We will repeat chest x-ray. We will continue with beta- fitz and RICK inhibitor. Likely congestive heart failure unknown EF, we will follow up an echocardiogram and continue daily weights. Strict I's and O's. Fluid-restricted diet. Overall, poor prognosis. We will discuss further with Cardiology and Nephrology. /ADAN Voice ID: [id number] Report ID: [id number] SOPHIA
[2018-04-01 19:01] LABS: Arterial Blood Carboxyhemoglob 2.5 % (0-1.5); Blood Gas Oxyhemoglobin 90.9 % (94-97); Blood O2 Saturation 93.6 % (92-98.5)
--- NOTE | 2018-04-01 19:27 | RAD REPORT ---
EXAM DESCRIPTION: RAD - Chest Single View - 04/01/2018 7:04 pm CLINICAL HISTORY: sob Chest pain. COMPARISON: Chest Single View dated 03/31/2018; Chest Pa And Lat (2 Views) dated 06/16/2016; CHEST SI NGLE VIEW dated 04/13/2015; Thorax Wo Con dated 03/31/2018 FINDINGS: Portable technique limits examination quality. Moderate right pleural effusion present. Mild bilateral pulmonary opacities are seen likely represent ing pulmonary edema. The heart is moderately enlarged in size. No displaced fractures. IMPRESSION: Moderate right pleural effusion. Mild CHF versus volume overload pattern.
[2018-04-01] MEDS: IPRATROPIUM BROM 0.5MG/2.5ML NEB PRN (19:42)
[2018-04-01] MEDS: CEFTRIAXONE/SWI 1gm 1 GM/10 ML SYR IVP SCH (19:57)
--- NOTE | 2018-04-01 21:55 | P.CNS ---
Date of Consult: 04/01/18 Reason for Consult: KITA Requesting Physician: Elisa Hamilton Chief Complaint: Dyspnea History of Present Illness: 62 yo WM CKD, DM presented to the ER with 2 weeks of moderate, progressive dyspnea with associated edema in the setting of CHF. No modifying fx. Poor compliance with therapy. Reports that he does not want dialysis if necessary. History Of Present Illness: The patient is a 62-year-old male with past medical history of diabetes, hypertension, apparent kidney issues after nephropathy from antibiotics when the patient had a one month stay in the hospital for his diabetic foot wound with complications and sepsis, as well as history of 3-pack per day tobacco use, comes in with 2 week duration of shortness of breath, dyspnea upon exertion, lower extremity swelling, edema, and some dry cough. The patient denies any fevers, does report some chills. No ill contacts. No sputum production. The patient's symptoms are constant, moderate, progressively worsening, gradual. The patient is noncompliant with his medications. He states he just does not want to take them because he is "bullet proof." The patient's vital signs upon arrival showed heart rate in the 150s. He was in atrial fibrillation. His workup revealed normal white count. His creatinine was elevated at 5.6, which is above his baseline of about 2.5 from 2016. The patient's BNP was 30,000. He was given digoxin, Lopressor, and Lasix. His rate improved to the 110s to 120s. He was then referred for admission. When seen in the ER, he was awake, alert, oriented x3, in some moderate distress. 14:59 This 62 yrs old Male presents to ER via Ambulatory with complaints of jr8 Shortness Of Breath. 14:59 The patient has shortness of breath at rest. Onset: The symptoms/episode began/occurred jr8 gradually, 1 week(s) ago. Duration: The symptoms are continuous. The patient's shortness of breath is aggravated by walking. Associated signs and symptoms: Pertinent negatives: non-productive cough, dizziness, fever, hemoptysis, nausea, vomiting. Severity of symptoms: At their worst the symptoms were moderate in the emergency department the symptoms are unchanged. It is unknown whether or not the patient has had similar symptoms in the past. The patient has not recently seen a physician. Patient with history of CHF, ESRD. Non compliant. Stated that he has had increased swelling over the past week or so. Stated that he is now having shortness of breath . Allergies penicillin Allergy (Verified 04/01/18 00:05) Anaphylaxis Home medications list reviewed: Yes Home Medications: NK [No Home Meds] 04/01/18 - Past Medical/Surgical History Diabetic: Yes -: COPD -: Diabetes type 2 -: Right foot amputation(ray amputation) -: appendectomy -: Dental extractions - Family History Mother Medical History: Heart disease Father Medical History: Heart disease, GI disease, Liver disease - Social History Smoking Status: Current every day smoker Alcohol use: No CD- Drugs: No Caffeine use: No Place of Residence: Home Review of Systems 10-point ROS is otherwise unremarkable General: Weakness, Malaise Respiratory: SOB with Excertion Cardiovascular: Edema Neurological: Weakness Physical Examination Temp Pulse Resp BP Pulse Ox 97.5 F 99 H 18 157/91 H 92 04/01/18 16:00 04/01/18 16:00 04/01/18 16:00 04/01/18 16:00 04/01/18 16:00 General: In no apparent distress, Oriented x3, Cooperative HEENT: Atraumatic Neck: Supple, JVD distended Respiratory: Diminished Cardiovascular: Regular rate/rhythm, Edema Gastrointestinal: Soft and benign, Non-distended Musculoskeletal: No clubbing, No contractures Integumentary: No rashes, No cyanosis Neurological: Normal speech Blood work reviewed in the chart. Cr 5.6 Imagings Data: EXAM DESCRIPTION: RAD - Chest Single View - 04/01/2018 7:04 pm CLINICAL HISTORY: sob Chest pain. COMPARISON: Chest Single View dated 03/31/2018; Chest Pa And Lat (2 Views) dated 06/16/2016; CHEST SINGLE VIEW dated 04/13/2015; Thorax Wo Con dated 2017 FINDINGS: Portable technique limits examination quality. Moderate right pleural effusion present. Mild bilateral pulmonary opacities are seen likely representing pulmonary edema. The heart is moderately enlarged in size. No displaced fractures. IMPRESSION: Moderate right pleural effusion. Mild CHF versus volume overload pattern. Conclusions/Impression: A/ KITA likely CRS. Hyperkalemia. CKD III with proteinuria. A/C Diastolic CHF. HTN with CKD. DM II with CKD. Anemia in chronic illness. Moderate malnutrition. Hypocalcemia. HyperPO4. P/ Continue current POC and Medications. Case discussed with Dr. Hamilton. Agree with Lasix. Give metolazone. Agree with dose of kayexalate. Start vitamin d. Start bicarb. Renal diet; low sodium. No NSAIDs. AM labs. Daily weight. Thank you kindly for the consultation.
[2018-04-01] MEDS ORDERED: METOLAZONE 5 MG TABLET PO SCH (23:00)
[2018-04-02 05:13] LABS: Absolute Lymphocytes (CBC) 1.1 K/uL (0.7-4.9); Absolute Monocytes 0.5 K/uL (0.1-1.3); Basophils % 1.3 % (0-1.3); Eosinophils % 5.9 % (0-4.4); Hematocrit 28.8 % (39.6-49.0); Lymphocytes % 13.5 % (15.3-44.8); MCH 31.7 pg (27.0-35.0); MCV 96.9 fL (80-100); MPV 10.2 fL (7.6-11.3); Monocytes % 6.4 % (3.3-12.3); RBC Red Blood Cell Count 2.97 M/uL (4.33-5.43)
[2018-04-02 05:29] LABS: Albumin 2.4 g/dL (3.4-5.0); Bilirubin Total 0.6 mg/dL (0.2-1.0); Potassium 4.1 mmol/L (3.5-5.1); Protein, Total 6.3 g/dL (6.4-8.2); Uric Acid 11.8 mg/dL (3.5-7.2)
[2018-04-02] MEDS: METOPROLOL TAR 25 MG TAB PO SCH ×2 (06:22→18:06)
[2018-04-02] MEDS: FUROSEMIDE 40 MG/4 ML VIAL IV SCH ×3 (06:23→22:14)
--- NOTE | 2018-04-02 07:22 | ECHO ---
HEIGHT: 5 ft 11 in WEIGHT: 244 lb 1.6 oz DATE OF STUDY: 04/01/[address]: Elisa Hamilton MD 2-DIMENSIONAL: YES M.MODE: YES DOPPLER: YES COLOR FLOW: YES TDS: NO PORTABLE: NO DEFINITY: NO BUBBLE STUDY: NO DIAGNOSIS: VOLUME OVERLOAD CARDIAC HISTORY: CATHERIZATION: NO SURGERY: NO PROSTHETIC VALVE: NO PACEMAKER: NO MEASUREMENTS (cm) DIASTOLIC (NORMALS) SYSTOLIC (NORMALS) IVSd 0.9 (0.6-1.2) LA Diam 4.6 (1.9-4.0) LVEF 46% LVIDd 5.5 (3.5-5.7) LVIDs 4.3 (2.0-3.5) %FS 23% LVPWd 1.1 (0.6-1.2) Ao Diam 3.1 (2.0-3.7) 2 DIMENSIONAL ASSESSMENT: RIGHT ATRIUM: NORMAL LEFT ATRIUM: DILATED RIGHT VENTRICLE: NORMAL LEFT VENTRICLE: NORMAL TRICUSPID VALVE: NORMAL MITRAL VALVE: MITRAL ANNULAR CALCIFICATION PULMONIC VALVE: NORMAL AORTIC VALVE: NORMAL PERICARDIAL EFFUSION: NONE AORTIC ROOT: NORMAL LEFT VENTRICULAR WALL MOTION: MILD GLOBAL HYPOKINESIS. DOPPLER/COLOR FLOW: MILD TRICUSPID REGURGITATION. RIGHT VENTRICULAR SYSTOLIC PRESSURE 44 mmHg. COMMENTS: MILD GLOBAL HYPOKINESIS. LEFT VENTRICULAR EJECTION FRACTION 46%. MILD PULMONARY HYPERTENSION. RIGHT VENTRICULAR SYSTOLIC PRESSURE 44 mmHg. LEFT ATRIAL ENLARGEMENT. MITRAL ANNULAR CALCIFICATION. TECHNOLOGIST: Da CONTRERAS
[2018-04-02] MEDS: INSULIN -REGULAR HUMAN 50 UNIT/0.5 ML ML SQ SCH ×4 (07:30→21:11)
--- NOTE | 2018-04-02 08:47 | RAD REPORT ---
EXAM DESCRIPTION: [place] Pa And Lat (2 Views)04/02/2018 7:09 am CLINICAL HISTORY: Cough COMPARISON: 04/01/2018 FINDINGS: The pleural effusion is either unchanged or mildly diminished in size No other change is noted
[2018-04-02] MEDS: CEFTRIAXONE/SWI 1gm 1 GM/10 ML SYR IVP SCH (09:26)
[2018-04-02] MEDS: SEVELAMER CARBONATE 800 MG TABLET PO SCH ×3 (09:26→18:06)
[2018-04-02] MEDS: VITAMIN D 5,000 UNIT CAP PO SCH (09:26)
[2018-04-02] MEDS: SODIUM BICARB 325 MG TAB PO SCH ×3 (09:26→21:11)
[2018-04-02] MEDS: CALCITROL 0.25 MCG CAP PO SCH (09:27)
--- NOTE | 2018-04-02 18:26 | PN ---
Date of Progress Note: 04/02/2018 Subjective: The patient seen and examined. Chart reviewed and case discussed with RN and Dr. Loraine guthrie. The patient had worsening symptoms last night with shortness of breath. However, is a DNR and do es not wish to be on any mechanical ventilation. No dialysis and essentially not interested in invas km procedures. Review of Systems: Negative except as above. Medications: List reviewed. Physical Examination: Vital Signs: Temperature 98.1, heart rate 104, blood pressure 137/74, respirations 17, O2 96% on jose m air. General: Awake, alert, oriented x3, in some mild respiratory distress. Appears older than stated ag e. Obese male. CV: S1, S2. Irregularly irregular. Peripheral pulses present, but weak bilaterally. Respiratory: Diminished breath sounds bilaterally, worse on the right. Gastrointestinal: Abdomen is soft, nontender, nondistended. Positive bowel sounds. Extremities: No clubbing, cyanosis. The patient has 3+ edema bilateral lower extremities. Neurologic: Nonfocal. Laboratory Data: Sodium 144, potassium 4.1, chloride 114, CO2 19, BUN 85, creatinine 5, glucose 113, uric acid is 11.8, calcium 7.1, albumin is 2.4, troponin 0.06 and repeat level is of 0.06. WBC 8.3, H and H 9.4 and 28.8, platelets 193, neutrophils 72%. Urine culture shows no growth. Echocardiogra m shows EF 46%, left atrial enlargement, pulmonary hypertension, diffuse hypokinesis. Chest x-ray sh ows a pleural effusion, mildly diminished in size or unchanged, no other changes noted. Continues to have CHF pattern. Assessment/plan: A 62-year-old male with: 1.Acute respiratory distress secondary to pleural effusions and volume overload due to chronic kidne y disease. The patient is currently on supplemental oxygen, may need thoracentesis. We will discuss with Dr. Yoder. Today's chest x-ray shows improvement and as Lasix is seemed to be working. The patient is not quite interested in invasive procedures, it was DNR, does not want dialysis. We will hold off. 2.Atrial fibrillation with rapid ventricular response, new onset. The patient is still in atrial fi brillation. We continue beta-blockers. He is not a candidate for long-term anticoagulation due to h is chronic kidney disease. Appreciate Dr. Ghotra's input. His EF is 46%. Does have some mild glob al hypokinesis. 3.Mild pulmonary hypertension. 4.Troponin elevation, likely secondary to atrial fibrillation, respiratory distress and kidney disea se. 5.Noncompliance, intentional. 6.Essential hypertension, stable. Continue medications. 7.Acute on chronic kidney disease, stage 5. The patient needs dialysis. However, he is not interes wood. Appreciate Dr. Yoder's input. 8.Diabetes mellitus type 2 noninsulin requiring with hyperglycemia. We will continue sliding scale insulin and continue Accu-Cheks. 9.Normocytic normochromic anemia. We will monitor H and H likely secondary to anemia of chronic kid melissa disease. Transfuse as needed. 10.Mild protein-calorie malnutrition. Albumin is 2.6. We will provide protein supplementation. 11.Hypocalcemia. Corrected calcium is normal. 12.Obesity, BMI 34.2. 13.Gastrointestinal and deep venous thrombosis prophylaxis with PPI and Lovenox. Plan: Continue diuresis. Monitor I's and O's, daily weights. Metolazone added by Nephrology. Ches t x-ray shows some mild improvement. We will continue to monitor. Appreciate Dr. Yoder's input. Overall has a poor prognosis due to his chronic kidney disease. The patient does not wish to be on dialysis, he was offered hospice services care and comfort measures. However, he declined at this ti me. /ADAN Voice ID: [id number] Report ID: [id number]
--- NOTE | 2018-04-02 18:57 | P.CNS ---
Date of Consult: 04/02/18 Reason for Consult: Shortness of breath pleural effusion Chief Complaint: Dyspnea History of Present Illness: Patient is 62 years of age with a noncompliant admitted with worsening edema of lower extremities worsening dyspnea he has been sick for quite some time got worse over the past month he has end-stage renal disease refused dialysis active smoker does not take any medication at home patient is a diabetic feeling better with diuresis he has a chronic right-sided pleural effusion and has had new atrial fibrillation diagnosed denies any fever chills or chest pain Allergies penicillin Allergy (Verified 04/01/18 00:05) Anaphylaxis Home Medications: NK [No Home Meds] 04/01/18 - Past Medical/Surgical History Diabetic: Yes -: COPD -: Diabetes type 2 -: Right foot amputation(ray amputation) -: appendectomy -: Dental extractions - Family History Mother Medical History: Heart disease Father Medical History: Heart disease, GI disease, Liver disease - Social History Smoking Status: Current every day smoker Alcohol use: No CD- Drugs: No Caffeine use: No Place of Residence: Home Review of Systems General: Weakness Respiratory: Cough, Shortness of Breath Cardiovascular: Edema Physical Examination Temp Pulse Resp BP Pulse Ox 97.1 F 99 H 18 131/59 L 94 04/02/18 16:00 04/02/18 18:06 04/02/18 16:00 04/02/18 18:06 04/02/18 16:00 General: Alert, Oriented x3 HEENT: Atraumatic Neck: Supple Respiratory: Crackles/rales, Expiratory wheezes Cardiovascular: Edema (3+ edema), Irregular heart rate/rhythm Gastrointestinal: Normal bowel sounds, Soft and benign - Problems (1) Pleural effusion Current Visit: Yes Status: Acute Plan: Patient is 62 years of age admitted with the end-stage renal disease volume overload right-sided pleural effusion which is chronic was present in 2016 in addition patient is an active smoker does not take any medications at home history of diabetes he has end-stage renal disease at this time I suggest aggressive diuresis and doubt that this is an infection and he is going to be anti coagulated for his atrial fibrillation his symptoms worsened will consider thoracentesis use bronchodilators for the possibility of COPD apparently was seen in my office will review documentation patient has congestive heart failure global hypokinesis continue with aggressive diuresis and Lovenox
--- NOTE | 2018-04-02 22:49 | P.PN ---
Date of Service: 04/02/18 Vital Signs Temp Pulse Resp BP Pulse Ox 97.9 F 105 H 20 142/77 H 95 04/02/18 20:00 04/02/18 22:14 04/02/18 20:00 04/02/18 22:14 04/02/18 20:00 Medications Acetaminophen (Tylenol -Extra Strength) 500 mg PO Q4HP PRN PRN Reason: [id number] Stop: 04/30/18 16:47 Albuterol Sulfate (Proventil 0.083% Neb Soln) 2.5 mg NEB [id number] PRN PRN Reason: SHORTNESS OF BREATH Stop: 04/30/18 16:47 Last Admin: 04/01/18 19:42 Dose: 2.5 mg Calcitriol (Rocaltrol) 0.5 mcg PO DAILY [facility] Stop: 05/01/18 09:01 Last Admin: 04/02/18 09:27 Dose: 0.5 mcg Cholecalciferol (Vitamin D 5,000 Iu Cap) 5,000 unit PO DAILY [facility] Stop: 05/01/18 09:01 Last Admin: 04/02/18 09:26 Dose: 5,000 unit Enoxaparin Sodium (Lovenox 100 Mg Inj) 100 mg SQ DAILY [facility] Stop: 04/30/18 17:01 Last Admin: 04/01/18 09:25 Dose: 100 mg Furosemide (Lasix) 40 mg IV Q8H [facility] Stop: 05/01/18 23:01 Last Admin: 04/02/18 22:14 Dose: 40 mg Ceftriaxone Sodium/Sodium Chloride (Rocephin 1 Gm/10 Ml Swi Ivp) 1 gm in 10 mls @ 600 mls/hr IVP DAILY [facility]; Protocol Stop: 05/01/18 18:31 Last Admin: 04/02/18 09:26 Dose: 10 mls Insulin Human Regular (Novolin -R) 0 unit SQ ACHS [facility]; Protocol Stop: 04/30/18 21:01 Last Admin: 04/02/18 21:11 Dose: 2 unit Ipratropium [place] (Atrovent Neb) 0.5 mg NEB [id number] PRN PRN Reason: SHORTNESS OF BREATH Stop: 04/30/18 20:01 Last Admin: 04/01/18 19:42 Dose: 0.5 mg Metoprolol Tartrate (Lopressor 1 Mg/Ml Inj) 5 mg IV Q6H PRN PRN Reason: HR>130 Stop: 04/30/18 16:47 Metoprolol Tartrate (Lopressor) 25 mg PO BID 6AM 6PM [facility] Stop: 04/30/18 18:01 Last Admin: 04/02/18 18:06 Dose: 25 mg Ondansetron HCl (Zofran) 4 mg IV Q6HP PRN PRN Reason: NAUSEA / VOMITING Stop: 04/30/18 16:47 Sevelamer Carbonate (Renvela) 800 mg PO TIDWM [facility] Stop: 05/01/18 08:01 Last Admin: 04/02/18 18:06 Dose: 800 mg Sodium Bicarbonate (Sodium Bicarb 325 Mg) 325 mg PO TID [facility] Stop: 04/30/18 21:01 Last Admin: 04/02/18 21:11 Dose: 325 mg Sodium Chloride (Normal Saline Flush) 10 ml IV BID [facility] Stop: 04/30/18 21:01 Last Admin: 04/02/18 21:12 Dose: 10 ml Assessment/ Plan: Nephrology Feeling better. CPS improved with CP or SOB. +KOO No acute events overnight. Vitals, medications, blood work and imaging reviewed in the chart. General: In no apparent distress, Oriented x3, Cooperative HEENT: Atraumatic Neck: Supple, JVD distended Respiratory: Wheezing Cardiovascular: Regular rate/rhythm, Edema Gastrointestinal: Soft and benign, Non-distended Musculoskeletal: No clubbing, No contractures Integumentary: No rashes, No cyanosis Neurological: Normal speech Blood work reviewed in the chart. Cr 5.6 Imagings Data: EXAM DESCRIPTION: RAD - Chest Single View - 04/01/2018 7:04 pm CLINICAL HISTORY: sob Chest pain. COMPARISON: Chest Single View dated 03/31/2018; Chest Pa And Lat (2 Views) dated 06/16/2016; CHEST SINGLE VIEW dated 04/13/2015; Thorax Wo Con dated 2017 FINDINGS: Portable technique limits examination quality. Moderate right pleural effusion present. Mild bilateral pulmonary opacities are seen likely representing pulmonary edema. The heart is moderately enlarged in size. No displaced fractures. IMPRESSION: Moderate right pleural effusion. Mild CHF versus volume overload pattern. Conclusions/Impression: A/ KITA likely CRS. Hyperkalemia. CKD III with proteinuria. A/C Diastolic CHF. HTN with CKD. DM II with CKD. Anemia in chronic illness. Moderate malnutrition. Hypocalcemia. HyperPO4. P/ Continue current POC and Medications. Doing well with current diuretics. Renal diet; low sodium. No NSAIDs. AM labs. Daily weight.
[2018-04-03 04:45] LABS: Absolute Lymphocytes (CBC) 1.3 K/uL (0.7-4.9); Absolute Monocytes 0.5 K/uL (0.1-1.3); Absolute Neutrophil 5.9 K/uL (1.8-8.0); Basophils % 1.4 % (0-1.3); Eosinophils % 7.1 % (0-4.4); Hematocrit 29.8 % (39.6-49.0); Lymphocytes % 15.3 % (15.3-44.8); MCH 31.8 pg (27.0-35.0); MCV 96.1 fL (80-100); Monocytes % 6.2 % (3.3-12.3)
[2018-04-03 05:04] LABS: Albumin 2.5 g/dL (3.4-5.0); Bilirubin Total 0.4 mg/dL (0.2-1.0); Potassium 4.3 mmol/L (3.5-5.1); Protein, Total 6.8 g/dL (6.4-8.2)
[2018-04-03] MEDS: METOPROLOL TAR 25 MG TAB PO SCH ×2 (05:35→17:00)
[2018-04-03] MEDS: FUROSEMIDE 40 MG/4 ML VIAL IV SCH ×3 (06:15→23:09)
[2018-04-03] MEDS: CEFTRIAXONE/SWI 1gm 1 GM/10 ML SYR IVP SCH (08:46)
[2018-04-03] MEDS: CALCITROL 0.25 MCG CAP PO SCH (08:46)
[2018-04-03] MEDS: VITAMIN D 5,000 UNIT CAP PO SCH (08:46)
[2018-04-03] MEDS: SODIUM BICARB 325 MG TAB PO SCH ×3 (08:46→21:00)
[2018-04-03] MEDS: SEVELAMER CARBONATE 800 MG TABLET PO SCH ×3 (08:46→16:37)
[2018-04-03] MEDS: INSULIN -REGULAR HUMAN 50 UNIT/0.5 ML ML SQ SCH ×4 (08:47→21:00)
[2018-04-03] MEDS: ENOXAPARIN 100 MG/ML SYR SQ SCH (09:05)
--- NOTE | 2018-04-03 09:18 | P.PN ---
Date of Service: 04/03/18 Vital Signs Temp Pulse Resp BP Pulse Ox 97.4 F 94 H 18 111/63 96 04/03/18 07:46 04/03/18 07:46 04/03/18 07:46 04/03/18 07:46 04/03/18 07:46 Medications Acetaminophen (Tylenol -Extra Strength) 500 mg PO Q4HP PRN PRN Reason: [id number] Stop: 04/30/18 16:47 Albuterol Sulfate (Proventil 0.083% Neb Soln) 2.5 mg NEB [id number] PRN PRN Reason: SHORTNESS OF BREATH Stop: 04/30/18 16:47 Last Admin: 04/01/18 19:42 Dose: 2.5 mg Calcitriol (Rocaltrol) 0.5 mcg PO DAILY [facility] Stop: 05/01/18 09:01 Last Admin: 04/03/18 08:46 Dose: 0.5 mcg Cholecalciferol (Vitamin D 5,000 Iu Cap) 5,000 unit PO DAILY [facility] Stop: 05/01/18 09:01 Last Admin: 04/03/18 08:46 Dose: 5,000 unit Enoxaparin Sodium (Lovenox 100 Mg Inj) 100 mg SQ DAILY [facility] Stop: 04/30/18 17:01 Last Admin: 04/03/18 09:05 Dose: 100 mg Furosemide (Lasix) 40 mg IV Q8H [facility] Stop: 05/01/18 23:01 Last Admin: 04/03/18 06:15 Dose: 40 mg Ceftriaxone Sodium/Sodium Chloride (Rocephin 1 Gm/10 Ml Swi Ivp) 1 gm in 10 mls @ 600 mls/hr IVP DAILY [facility]; Protocol Stop: 05/01/18 18:31 Last Admin: 04/03/18 08:46 Dose: 10 mls Insulin Human Regular (Novolin -R) 0 unit SQ ACHS [facility]; Protocol Stop: 04/30/18 21:01 Last Admin: 04/03/18 08:47 Dose: 2 unit Ipratropium [place] (Atrovent Neb) 0.5 mg NEB [id number] PRN PRN Reason: SHORTNESS OF BREATH Stop: 04/30/18 20:01 Last Admin: 04/01/18 19:42 Dose: 0.5 mg Metolazone (Zaroxolyn) 5 mg PO 1X [facility] Stop: 05/03/18 10:01 Metoprolol Tartrate (Lopressor 1 Mg/Ml Inj) 5 mg IV Q6H PRN PRN Reason: HR>130 Stop: 04/30/18 16:47 Metoprolol Tartrate (Lopressor) 25 mg PO BID 6AM 6PM [facility] Stop: 04/30/18 18:01 Last Admin: 04/03/18 05:35 Dose: 25 mg Ondansetron HCl (Zofran) 4 mg IV Q6HP PRN PRN Reason: NAUSEA / VOMITING Stop: 04/30/18 16:47 Sevelamer Carbonate (Renvela) 800 mg PO TIDWM [facility] Stop: 05/01/18 08:01 Last Admin: 04/03/18 08:46 Dose: 800 mg Sodium Bicarbonate (Sodium Bicarb 325 Mg) 325 mg PO TID [facility] Stop: 04/30/18 21:01 Last Admin: 04/03/18 08:46 Dose: 325 mg Sodium Chloride (Normal Saline Flush) 10 ml IV BID [facility] Stop: 04/30/18 21:01 Last Admin: 04/03/18 08:47 Dose: 10 ml Assessment/ Plan: Nephrology Feeling better. CPS improved with CP or SOB. +KOO No acute events overnight. Vitals, medications, blood work and imaging reviewed in the chart. General: In no apparent distress, Oriented x3, Cooperative HEENT: Atraumatic Neck: Supple, JVD distended Respiratory: Wheezing Cardiovascular: Regular rate/rhythm, Edema Gastrointestinal: Soft and benign, Non-distended Musculoskeletal: No clubbing, No contractures Integumentary: No rashes, No cyanosis Neurological: Normal speech Blood work reviewed in the chart. Cr 5.6 Imagings Data: EXAM DESCRIPTION: RAD - Chest Single View - 04/01/2018 7:04 pm CLINICAL HISTORY: sob Chest pain. COMPARISON: Chest Single View dated 03/31/2018; Chest Pa And Lat (2 Views) dated 06/16/2016; CHEST SINGLE VIEW dated 04/13/2015; Thorax Wo Con dated 2017 FINDINGS: Portable technique limits examination quality. Moderate right pleural effusion present. Mild bilateral pulmonary opacities are seen likely representing pulmonary edema. The heart is moderately enlarged in size. No displaced fractures. IMPRESSION: Moderate right pleural effusion. Mild CHF versus volume overload pattern. Conclusions/Impression: A/ KITA likely CRS. Hyperkalemia. CKD III with proteinuria. A/C Diastolic CHF. HTN with CKD. DM II with CKD. Anemia in chronic illness. Moderate malnutrition. Hypocalcemia. HyperPO4. P/ Continue current POC and Medications. Lasix as ordered. Give a dose of Metolazone. Low sodium diet. No fluid restriction. No NSAIDs. AM labs. Daily weight.
[2018-04-03] MEDS ORDERED: METOLAZONE 5 MG TABLET PO ONE (10:00)
[2018-04-03] MEDS ORDERED: D50W 25 GM/50 ML SYRINGE IV PRN (12:11)
[2018-04-03] MEDS ORDERED: GLUCAGON 1 MG/VIAL IM PRN (12:11)
--- NOTE | 2018-04-03 13:12 | PN ---
Subjective: Currently patient is lying in bed. He looks comfortable. He think his shortness of william ath is much less. His leg swelling is less. He have a Sorto catheter and he have a good amount of u rine output. No chest pain. No abdominal pain. No cough. Review of Systems: Otherwise negative. Physical Examination: Vital Signs: Blood pressure 111/63, respiratory rate 18, pulse 94, temperature 97.4. General: The patient is alert and oriented. Does not look in any distress. He is saturating 95% on room air. HEENT: Atraumatic, normocephalic. PERRLA. Oral mucosa is moist. Neck: Supple. No JVP. No bruits. Chest: With decreased breath sound bilaterally in the bases, on the right worse. Heart: Irregular rate and rhythm. No gallop or murmur. Abdomen: Soft, obese. Positive bowel sounds. Extremities: No clubbing or cyanosis. +2 edema which apparently better than yesterday. Neurologic: Exam deferred. Right leg below-knee amputation. Laboratory Data: Today, CBC was normal except for hemoglobin 9.8. Chemistry within normal except fo r chloride 112, BUN 92, creatinine 4.8, glucose 132, albumin 2.5. INR is 1.18. Urine culture was ne gative. Assessment And Plan: 1.Acute respiratory distress secondary to volume overload and bilateral pleural effusion secondary t o chronic renal insufficiency. The patient is off oxygen at this point. He responded very well to d iuresis. No need for thoracentesis. We appreciate Dr. Yoder's input. I will repeat chest x-ray in the morning. 2.Atrial fibrillation with rapid ventricular response. Ejection fraction 46%. Currently his rate c ontrolled. Cardiology following him up. Not a candidate for anticoagulation apparently due to his r enal insufficiency per Cardiology. He is on Lovenox 100 mg daily, p.r.n. metoprolol IV, and oral met oprolol 25 twice a day. His heart rate today is 94. 3.End-stage renal disease. The patient refusing dialysis. 4.Elevated troponin and BNP secondary to his renal failure. 5.Diabetes. Glucose in the range of 130-300. I will check the patient's hemoglobin A1c. He is alr jasper on insulin sliding scale. I will add 5 unit of Lantus at night. 6.Hypertension, controlled. 7.Deep vein thrombosis prophylaxis. He is on full-dose Lovenox, I will switch that to prophylaxis o nly. 8.Possible chronic obstructive pulmonary disease exacerbation on top of volume overload. The patien t on ceftriaxone and bronchodilator. RICHARD/ADAN Voice ID: [id number] Report ID: [id number]
[2018-04-03] MEDS ORDERED: ENOXAPARIN 30 MG/0.3 ML SQ SCH (17:00)
[2018-04-03] MEDS ORDERED: INSULIN GLARGINE 100 UNITS/ML SQ SCH (21:00)
[2018-04-04 04:36] LABS: Absolute Lymphocytes (CBC) 1.2 K/uL (0.7-4.9); Absolute Monocytes 0.5 K/uL (0.1-1.3); Absolute Neutrophil 5.3 K/uL (1.8-8.0); Basophils % 1.2 % (0-1.3); Hematocrit 28.4 % (39.6-49.0); MCH 32.1 pg (27.0-35.0); MCV 97.2 fL (80-100); MPV 9.7 fL (7.6-11.3); Monocytes % 5.9 % (3.3-12.3); RBC Red Blood Cell Count 2.93 M/uL (4.33-5.43)
[2018-04-04 05:19] LABS: Albumin 2.4 g/dL (3.4-5.0); Bilirubin Total 0.3 mg/dL (0.2-1.0); Potassium 3.9 mmol/L (3.5-5.1); Protein, Total 6.6 g/dL (6.4-8.2)
[2018-04-04 05:40] LABS: Platelet Estimate ADEQ
[2018-04-04 05:41] LABS: Blood Morphology Comment NOT SEEN (NOT SEEN)
[2018-04-04] MEDS: FUROSEMIDE 40 MG/4 ML VIAL IV SCH ×3 (06:23→23:26)
[2018-04-04] MEDS: METOPROLOL TAR 25 MG TAB PO SCH ×2 (06:31→17:03)
[2018-04-04] MEDS: INSULIN -REGULAR HUMAN 50 UNIT/0.5 ML ML SQ SCH ×4 (07:30→21:10)
[2018-04-04] MEDS: SEVELAMER CARBONATE 800 MG TABLET PO SCH ×3 (08:37→17:02)
[2018-04-04] MEDS: SODIUM BICARB 325 MG TAB PO SCH ×3 (08:37→21:01)
[2018-04-04] MEDS: CALCITROL 0.25 MCG CAP PO SCH (08:37)
[2018-04-04] MEDS: VITAMIN D 5,000 UNIT CAP PO SCH (08:37)
[2018-04-04] MEDS: CEFTRIAXONE/SWI 1gm 1 GM/10 ML SYR IVP SCH (08:38)
--- NOTE | 2018-04-04 08:43 | P.PN ---
Subjective Date of Service: 04/04/18 Chief Complaint: Shortness of breath Subjective: Improving (Patient is improving he is doing better is edema has decreased still has significant effusion on the right side) Review of Systems General: Weakness Respiratory: Shortness of Breath Physical Examination - Vital Signs Temperature: 97.7 F Blood Pressure: 148/76 Pulse: 110 Respirations: 18 Pulse Ox (%): 91 - Physical Exam General: Alert, Oriented x3 Neck: Supple Respiratory: Diminished (Diminished on the right side) Cardiovascular: Edema (Edema has decreased), Irregular heart rate/rhythm Assessment & Plan - Problems (Diagnosis) (1) Pleural effusion Current Visit: Yes Status: Acute Plan: Patient is 62 years of age admitted with the volume overload worsening renal failure is refusing dialysis is still has a significant effusion on the right side plan to do a thoracentesis this appears to be chronic edema has not patient is a heavy smoker probably has underlying obstructive airways disease will need to resume anticoagulation after thoracentesis discuss with the patient regarding thoracentesis any agrees
[2018-04-04] MEDS ORDERED: ENOXAPARIN 30 MG/0.3 ML SQ SCH (09:00)
[2018-04-04 09:13] VITALS: O2SAT 93
[2018-04-04] MEDS: ARFORMOTEROL TARTRATE 15 MCG/2 ML VIAL.NEB NEB SCH ×2 (09:32→20:15)
--- NOTE | 2018-04-04 10:59 | RAD REPORT ---
EXAM DESCRIPTION: RAD - Chest Single View - 04/04/2018 6:34 am CLINICAL HISTORY: SOB Chest pain. COMPARISON: Chest Pa And Lat (2 Views) dated 04/02/2018; Chest Single View dated 04/01/2018; Chest Sin gle View dated 03/31/2018; Chest Pa And Lat (2 Views) dated 06/16/2016 FINDINGS: Portable technique limits examination quality. Mild pulmonary edema is suspected. Moderate right pleural effusion is seen. The heart is moderately e nlarged in size. No displaced fractures.
--- NOTE | 2018-04-04 16:28 | PN ---
Subjective: Currently, the patient lying in bed. He looks comfortable. He had no issues overnight. No chest pain. No abdominal pain. He is still somewhat short of breath without oxygen. He is still with good urine output. Appetite is good. Bowel movements normal. Objective: Vital Signs: Blood pressure 148/76, respiratory rate 18, pulse 110 , temperature 97.7. General: He is alert and oriented x3. Does not look in any distress. HEENT: Atraumatic, normocephalic. PERRLA. Oral mucosa is moist. Neck: Supple. Chest: Decreased breath sounds at the bases, on the right more than the left. Heart: Regular rate and rhythm. Tachy. No gallop or murmur. Abdomen: Soft, obese. Positive bowel sounds. Extremities: No clubbing or cyanosis. Edema +2 with some oozing, on the right more than the left leg, but in both, situated right below-knee amputation. Skin: Warm and dry. Laboratory Data: Labs today, CBC within normal except for hemoglobin at 9.4, platelets 198. Chemistry within normal except for BUN of 90, creatinine of 4.5 , glucose 183 with a range of 163 to 162. Hemoglobin A1c checked yesterday was 9.3. BNP still very high at 46,700. Chest x-ray this morning showed significant right pleural effusion. No reports yet. Assessment And Plan: 1. Acute respiratory distress secondary to volume overloaded with bilateral pleural effusion, more on the right, secondary to chronic renal insufficiency. Though the patient responding well to diuresis, he continued to have significant amount of fluid on x-ray this morning. Dr. Yoder is planning to proceed with thoracentesis in a.m. 2. Atrial fibrillation with rapid ventricular response. Ejection fraction on echo 46%. Appreciate Cardiology input. The patient not well controlled this morning. I want to increase his metoprolol to 50 twice a day and see if that will help to get him better rate control. Dr. Ghotra does not think the patient is a good candidate for anticoagulation given his history of renal insufficiency and refusal of hemodialysis. The patient on 100 mg of Lovenox, we will discontinue that as patient is going to have thoracentesis in a.m. The patient understands risk of stroke. 3. End-stage renal disease. The patient refusing dialysis. 4. Repeated troponin and BNP secondary to renal insufficiency. 5. Diabetes. Glucose is not well controlled. Hemoglobin A1c checked on it around 9.3. I started yesterday Lantus at 5 units. I will increase that to 10 units today. 6. Hypertension, not well controlled, but hopefully we will increase the metoprolol to control the atrial fibrillation rate and blood pressure. 7. Deep vein thrombosis prophylaxis. The patient will be off Lovenox for the procedure for his thoracentesis in the morning. ELLY Voice ID: [id number] Report ID: [id number] MTDD
[2018-04-04 20:14] LABS: HBsAG Nonreactive (Nonreactive)
[2018-04-04] MEDS: IPRATROPIUM BROM 0.5MG/2.5ML NEB PRN (20:15)
[2018-04-04] MEDS ORDERED: INSULIN GLARGINE 100 UNITS/ML SQ SCH (21:00)
[2018-04-05] MEDS: FUROSEMIDE 40 MG/4 ML VIAL IV SCH (06:23)
[2018-04-05] MEDS: METOPROLOL TAR 25 MG TAB PO SCH (06:24)
[2018-04-05] MEDS: INSULIN -REGULAR HUMAN 50 UNIT/0.5 ML ML SQ SCH ×2 (07:30→11:29)
[2018-04-05] MEDS: SEVELAMER CARBONATE 800 MG TABLET PO SCH ×2 (08:00→11:57)
[2018-04-05] MEDS: VITAMIN D 5,000 UNIT CAP PO SCH (08:33)
[2018-04-05] MEDS: CALCITROL 0.25 MCG CAP PO SCH (08:33)
[2018-04-05] MEDS: SODIUM BICARB 325 MG TAB PO SCH (08:33)
[2018-04-05] MEDS: ARFORMOTEROL TARTRATE 15 MCG/2 ML VIAL.NEB NEB SCH (08:47)
--- NOTE | 2018-04-05 11:37 | RAD REPORT ---
EXAM DESCRIPTION: US - Thoracentesis w/ US Guide - 04/05/2018 11:04 am CLINICAL HISTORY: Pleural effusion. Right-sided pleural effusion COMPARISON: Urinary Bladder dated 11/18/2016; Chest Single View dated 04/04/2018; Thorax Wo Con dated 03/31/2018 FINDINGS: Preoperative diagnosis: Right pleural effusion Post operative diagnosis: Same Conscious Sedation: None. Estimated blood loss: Minimal Specimens:A small volume of fluid was sent for requested lab studies. The patient was placed in the upright recumbent position and the right back was prepped and draped in the usual sterile fashion. 1% Lidocaine was infiltrated into the soft tissues for local anesthesia. Under sonographic guidance, a thoracentesis needle and 6 [place] catheter was advanced into the righ t pleural space. Approximately 1.2 liters yellow fluid was aspirated. Samples were sent to pathology for requested analysis. The patient tolerated the procedure without immediate complication and transf erred to the floor in stable condition. IMPRESSION: Successful ultrasound-guided thoracentesis as detailed.
[2018-04-05 14:29] VITALS: BP 130/82; TEMP 97.6
--- NOTE | 2018-04-06 12:15 | DS ---
Date of Discharge: 04/05/2018 Consultants: 1.Dr. Yoder with Pulmonology. 2.Dr. Eagle with Nephrology. 3.Dr. Ghotra with Cardiology. Admitting Diagnoses: 1.Acute respiratory distress. 2.Atrial fibrillation with rapid ventricular response, new onset. 3.Noncompliance. 4.Essential hypertension. 5.Kmpbc-ij-atjtwqh kidney disease. 6.Diabetes mellitus type 2, noninsulin-requiring with hyperglycemia. 7.Normocytic, normochromic anemia. 8.Mild protein-calorie malnutrition. 9.Hypocalcemia. Discharge Diagnoses: 1.Acute respiratory distress, improved. 2.Congestive heart failure, ejection fraction of 46%, systolic dysfunction. 3.Mild pulmonary hypertension. 4.Atrial fibrillation with rapid ventricular response, new onset. Not a candidate for anticoagulati on, improved. 5.Noncompliance. 6.Zpxtu-hd-crtxbnd kidney disease. The patient declined hemodialysis. 7.Essential hypertension. 8.Diabetes mellitus type 2, noninsulin-requiring with hyperglycemia. 9.Normocytic, normochromic anemia, stable. 10.Mild protein-calorie malnutrition. 11.Hypocalcemia, replaced. Hospital Course: The patient is a 62-year-old male, who has not seen a physician in at least a year, comes in with past medical history of diabetes, hypertension, chronic kidney disease, who has been h aving worsening shortness of breath. The patient's workup revealed pulmonary edema. His BNP was markie vated at 30,000. Creatinine was high at 5.6, which is above his baseline of about 2.5. His vital si gns also showed some tachycardia. The patient was admitted, started on diuresis. The patient was th ought to have congestive heart failure. He was also found to be in atrial fibrillation with rapid ve ntricular response. He was started on anticoagulation as well. Nephrology was consulted for possibl e dialysis as patient does have worsening kidney function. The patient refused dialysis. He stated that he would rather than start on dialysis. Regarding his congestive heart failure, he was diur esed, had slow response with not much improvement. His echocardiogram did show EF of 46%. He had mi ld pulmonary hypertension, left atrial enlargement, and mild global hypokinesis. He was seen by Dr. Ghotra with Cardiology. He recommended thoracentesis, Pulmonology was consulted. He was seen by Dr Alex Yoder. The patient did have thoracentesis done and 1.2 L were removed. He did well with the pr ocedure. His respiratory status improved significantly. The patient otherwise had no growth in his blood cultures. He otherwise was doing better. White blood cell count remained normal. His electro lytes did improve. His kidney function improved to 4.5, he is making urine. Calcium was also replac ed. The patient was otherwise then cleared from business info consultant's standpoint. His cultures did not show any growth to date. The patient will need to follow up with Pulmonology for thoracentesis or pleural fluid workup and to make sure there is no malignant cells found in the cytology specimen and he will need repeat chest x-ray. The patient was not a candidate for anticoagulation due to his chronic nick al function, will be sent on aspirin. The patient was then cleared for discharge, sent home in a sta ble condition. He understands that declining hemodialysis is delaying the navigable. His kidney fun ction will continue to decline. The patient has been not taking any medications for several years. He has been counseled extensively regarding compliance. He does state that he will continue with his medications and inhalers, and has to follow up with Pulmonology and establish care with a primary mo re physician. Case Management and director social also involved in the care of the patient to help him set up with a primary doctor. Diet: Low-sodium, fluid-restricted diet. Activity: No strenuous activity as tolerated. Medications: As per medication reconciliation list. Followup: With primary care physician in 2-3 days. Follow up with custodial laborer in 2 weeks. Follow up with chalk cutter, Dr. Ghotra in 2 weeks. Return to ER for worsening condition. We will repeat chest x-ray in 1-2 weeks. Follow up with cytology results with custodial laborer, Dr. Yoder. Physical Examination: General: Awake, alert, oriented, appears older than stated age. Obese male. CV: S1, S2. No murmurs. Respiratory: Improved aeration, moving air well. Gastrointestinal: Abdomen is soft, nontender, nondistended. Positive bowel sounds. Extremities: No clubbing, cyanosis, edema. Neurologic: Nonfocal. Total time spent discharging the patient was 36 minutes. /ADAN Voice ID: [id number] Report ID: [id number]
== END 2018-04-05 14:34 | disposition home or self-care (01) | DRG 291 ==
LOC: ER 14:01 → ERHOLD 16:44 → 2ND 19:38
PROVIDERS: ADMIT Family Medicine; ATTEND Family Medicine
PROC: 0W993ZX Drainage of Right Pleural Cavity, Percutaneous Approach, Diagnostic (ICD-10-PCS; principal; 2018-04-05)
DX: I13.2 Hypertensive heart and chronic kidney disease with heart failure and with stage 5 chronic kidney disease, or end stage renal disease (principal); N18.6 End stage renal disease; I50.33 Acute on chronic diastolic (congestive) heart failure; E44.1 Mild protein-calorie malnutrition; J91.8 Pleural effusion in other conditions classified elsewhere; N17.9 Acute kidney failure, unspecified; I48.0 Paroxysmal atrial fibrillation; Z88.0 Allergy status to penicillin; F17.210 Nicotine dependence, cigarettes, uncomplicated; R06.03 Acute respiratory distress; Z91.19 Patient's noncompliance with other medical treatment and regimen; E83.51 Hypocalcemia; Z89.431 Acquired absence of right foot; R09.02 Hypoxemia; Z66 Do not resuscitate; Z91.15 Patient's noncompliance with renal dialysis; D63.1 Anemia in chronic kidney disease; E66.9 Obesity, unspecified; Z68.34 Body mass index [BMI] 34.0-34.9, adult; J44.9 Chronic obstructive pulmonary disease, unspecified; E11.22 Type 2 diabetes mellitus with diabetic chronic kidney disease; I27.20 Pulmonary hypertension, unspecified; D64.9 Anemia, unspecified; E87.5 Hyperkalemia; R80.9 Proteinuria, unspecified
CPT/HCPCS: 32555; 36415; 51702; 71045; 71046; 71250; 80048; 80053; 80076; 81001; 81003; 82043; 82570; 82805; 82962; 83036; 83735; 83880; 84100; 84300; 84439; 84443; 84484; 84550; 85025; 85610; 86704; 86706; 86803; 87015; 87045; 87046; 87070; 87086; 87088; 87116; 87205; 87206; 87340; 88108; 88305; 89055; 93005; 93306; 94640; 94760; 99285; J0696; J1160; J1650; J7605

== ENCOUNTER 2018-04-30 15:15 | Inpatient (IN) | payer OTHER ==
[2018-04-30] MEDS ORDERED: FUROSEMIDE 40 MG/4 ML VIAL ONE (16:27)
[2018-04-30 16:43] LABS: Absolute Lymphocytes (CBC) 1.1 K/uL (0.7-4.9); Absolute Monocytes 0.4 K/uL (0.1-1.3); Absolute Neutrophil 7.6 K/uL (1.8-8.0); Basophils % 1.5 % (0-1.3); Eosinophils % 2.2 % (0-4.4); Hematocrit 32.6 % (39.6-49.0); Lymphocytes % 11.5 % (15.3-44.8); MCV 97.3 fL (80-100); MPV 10.2 fL (7.6-11.3); Monocytes % 4.2 % (3.3-12.3); RBC Red Blood Cell Count 3.35 M/uL (4.33-5.43)
[2018-04-30 17:14] LABS: Albumin 3.1 g/dL (3.4-5.0); Bilirubin Direct 0.3 mg/dL (0-0.2); Bilirubin Total 0.8 mg/dL (0.2-1.0); Potassium 5.3 mmol/L (3.5-5.1); Protein, Total 7.6 g/dL (6.4-8.2); Troponin (Emerg Dept Use Only) 0.02 ng/mL (0.0-0.045)
--- NOTE | 2018-04-30 17:37 | ER ---
Nurse's Notes [facility] Name: Remington Shaver Age: 62 yrs Sex: Male : 1955 Arrival Date: 04/30/2018 Time: 15:15 Bed 5 Private MD: Taye Finch Diagnosis: Anasarca;Acute kidney failure, unspecified;Hyperkalemia;Pulmonary edema;Pleural effusion, not elsewhere classified Presentation: 04/30 15:51 Presenting complaint: Patient states: He was seen here at the beginning of March and aj1 diagnosed with CHF and kidney disease. They adviszed him to start dialysis but he refused. Now he is feeling short of breath and the Lasix isn't helping. Reports swelling in his legs and abdomen. Transition of care: patient was not received from another setting of care. Onset of symptoms was April 25, 2018. Risk Assessment: Do you want to hurt yourself or someone else? Patient reports no desire to harm self or others. Initial Sepsis Screen: Does the patient meet any 2 criteria? RR > 20 per min. HR > 90 bpm. Yes Does the patient have a suspected source of infection? Yes: Productive cough/pneumonia. Care prior to arrival: None. 15:51 Method Of Arrival: Wheelchair aj1 15:51 Acuity: TOMASA 2 aj1 Triage Assessment: 15:54 General: Appears uncomfortable, Behavior is calm, cooperative. Pain: Complains of pain aj1 in chest Pain currently is 6 out of 10 on a pain scale. Neuro: Level of Consciousness is awake, alert, obeys commands. Historical: - Allergies: 15:54 PENICILLINS; aj1 - PMHx: 15:54 CHF; Diabetes - NIDDM; Hypertension; kidney disease; aj1 - Immunization history:: Flu vaccine is not up to date. - Social history:: Smoking status: Patient uses tobacco products, smokes three packs cigarettes per day. - Ebola Screening: : Patient denies travel to an Ebola-affected area in the 21 days before illness onset. - Family history:: not pertinent. - Hospitalizations: : The patient was recently seen at [facility]. Screenin:01 Abuse screen: Denies threats or abuse. Denies injuries from another. Nutritional bp screening: No deficits noted. Tuberculosis screening: No symptoms or risk factors identified. Fall Risk None identified. Assessment: 16:00 General: Appears distressed, comfortable, obese, unkempt, Behavior is calm, bp cooperative, appropriate for age. Pain: Denies pain. Neuro: Level of Consciousness is awake, alert, obeys commands, Oriented to person, place, time, situation, Appropriate for age. Cardiovascular: Rhythm is sinus tachycardia. Respiratory: Airway is patent Respiratory effort is even, Respiratory pattern is regular, symmetrical. GI: No signs and/or symptoms were reported involving the gastrointestinal system. : No signs and/or symptoms were reported regarding the genitourinary system. EENT: No deficits noted. Derm: No deficits noted. Musculoskeletal: Swelling present in right leg and left leg. 17:00 Reassessment: PT REMAINS TACHY ON MONITOR, LAB RESULTS PENDING. bp 18:37 Reassessment: ADMIT IN PROCESS, PT REMAINS TACHY ON MONITOR. bp 19:15 General: Appears in no apparent distress. uncomfortable, obese, Behavior is calm, tl2 cooperative, appropriate for age. Pain: Denies pain. Neuro: Level of Consciousness is awake, alert, obeys commands, Oriented to person, place, time, situation. Cardiovascular: Rhythm is sinus tachycardia. Respiratory: Airway is patent Respiratory effort is even, labored, using tripod position, Respiratory pattern is regular, symmetrical, Breath sounds are diminished bilaterally. GI: No signs and/or symptoms were reported involving the gastrointestinal system. : No signs and/or symptoms were reported regarding the genitourinary system. Derm: Skin is pale. 20:00 Reassessment: PT stable and ready for transport to ICU. tl2 Vital Signs: 15:54 BP 128 / 87; Pulse 137; Resp 24; Temp 97.7; Pulse Ox 98% on R/A; Weight 99.79 kg (R); aj1 Height 5 ft. 11 in. (180.34 cm) (R); 16:33 Pulse 131; Resp 25; Pulse Ox 99% ; bp 17:00 BP 131 / 105; Pulse 128; Resp 18; Pulse Ox 98% ; bp 18:30 BP 118 / 77; Pulse 105; Resp 16; Pulse Ox 98% ; bp 19:40 BP 115 / 73; Pulse 114; Resp 22; Pulse Ox 97% on R/A; tl2 15:54 Body Mass Index 30.68 (99.79 kg, 180.34 cm) aj1 ED Course: 15:15 Patient arrived in ED. as 15:16 Taye Finch MD is Private Physician. as 15:54 Triage completed. aj1 15:54 Arm band placed on Patient placed in an exam room. aj1 15:59 Melecio Deluna MD is Attending Physician. rn 16:00 Bacilio Ballesteros, SHEY is Primary Nurse. bp 16:01 Patient has correct armband on for positive identification. Placed in gown. Bed in low bp position. Call light in reach. Side rails up X2. Adult w/ patient. 16:20 Inserted saline lock: 20 gauge in right forearm, using aseptic technique. Blood bp collected. 16:47 EKG done, by molding technician. reviewed by Melecio Deluna MD. 3 17:35 Ernst Villaseñor DO is Hospitalizing Provider. rn 17:57 XRAY CXR (1 view) In Process Unspecified. EDMS 19:40 No provider procedures requiring assistance completed. Patient admitted, IV remains in tl2 place. Administered Medications: 16:35 Drug: Lasix 40 mg Route: IVP; Site: right forearm; ph 17:44 Drug: Metoprolol 5 mg Route: IVP; Site: right forearm; bp 18:38 Follow up: Response: No adverse reaction bp 17:45 Drug: Metoprolol TARTRATE (Lopressor) 50 mg Route: PO; bp 18:39 Follow up: Response: No adverse reaction bp Outcome: 17:36 Decision to Hospitalize by Provider. rn 20:37 Admitted to ICU accompanied by nurse, accompanied by tech, via stretcher, room 7, on tl2 monitor, with chart, Report called to SHEY Craven 20:37 Condition: stable 20:37 Discharge instructions given to patient, Instructed on the need for admit. 20:39 Patient left the ED. tl2 Signatures: Dispatcher [employer] EDMS Chetna Collins RN RN aj1 Elisa Wright as Melecio Deluna MD MD rn Hall, Patricia, RN RN ph Ileana Sage, SHEY RN tl2 Bacilio Ballesteros, SHEY RN bp Aissatou Canales 3
--- NOTE | 2018-04-30 17:37 | EDPHYS ---
Physician Documentation [facility] Name: Remington Shaver Age: 62 yrs Sex: Male : 1955 Arrival Date: 04/30/2018 Time: 15:15 Bed 5 Private MD: Taye Finch ED Physician Melecio Deluna HPI: 04/30 16:15 This 62 yrs old Male presents to ER via Wheelchair with complaints of Kidney rn Problems. 16:15 The patient has shortness of breath at rest. Onset: The symptoms/episode began/occurred rn at an unknown time. Duration: The symptoms are continuous. Severity of symptoms: At their worst the symptoms were moderate in the emergency department the symptoms are unchanged. The patient has experienced similar episodes in the past. Reports recently told has CHF and kidney failure, told needs dialysis, refused, now returns because increased SOB and swelling. NO fever. + still has urine outpt with lasix. . Historical: - Allergies: 15:54 PENICILLINS; aj1 - PMHx: 15:54 CHF; Diabetes - NIDDM; Hypertension; kidney disease; aj1 - Immunization history:: Flu vaccine is not up to date. - Social history:: Smoking status: Patient uses tobacco products, smokes three packs cigarettes per day. - Ebola Screening: : Patient denies travel to an Ebola-affected area in the 21 days before illness onset. - Family history:: not pertinent. - Hospitalizations: : The patient was recently seen at [facility]. ROS: 16:15 Constitutional: Negative for fever, chills, and weight loss, Eyes: Negative for injury, rn pain, redness, and discharge, Cardiovascular: Negative for chest pain, palpitations Respiratory: + sob and cough Abdomen/GI: Negative for abdominal pain, nausea, vomiting, diarrhea, and constipation, MS/Extremity: Negative for injury and deformity, Skin: Negative for injury, rash, and discoloration, Neuro: Negative for headache, weakness, numbness, tingling, and seizure. Exam: 16:15 Constitutional: This is a well developed, well nourished patient who is awake, alert, rn + mild to moderate respiratory distress Head/Face: Normocephalic, atraumatic. ENT: dry MM, no stridor Cardiovascular: tachycardic, irregular, no murmur Respiratory: + moderate tachypnea, no retractions, speaks 3-4 word sentences, + diminished breath sounds right lung base Abdomen/GI: soft, non-tender MS/ Extremity: + anasarca that extends up both legs to lower back, + 3+ pitting edema. Neuro: Awake and alert, GCS 15, oriented to person, place, time, and situation. Cranial nerves II-XII grossly intact. Motor strength 5/5 in all extremities. Sensory grossly intact. Vital Signs: 15:54 BP 128 / 87; Pulse 137; Resp 24; Temp 97.7; Pulse Ox 98% on R/A; Weight 99.79 kg (R); aj1 Height 5 ft. 11 in. (180.34 cm) (R); 16:33 Pulse 131; Resp 25; Pulse Ox 99% ; bp 17:00 BP 131 / 105; Pulse 128; Resp 18; Pulse Ox 98% ; bp 18:30 BP 118 / 77; Pulse 105; Resp 16; Pulse Ox 98% ; bp 19:40 BP 115 / 73; Pulse 114; Resp 22; Pulse Ox 97% on R/A; tl2 15:54 Body Mass Index 30.68 (99.79 kg, 180.34 cm) aj1 MDM: 15:59 Patient medically screened. rn 17:33 Differential diagnosis: CHF exacerbation, pneumonia, pulmonary edema, pleural effusion, rn antonio. Data reviewed: vital signs, nurses notes, lab test result(s), EKG, radiologic studies, plain films, and as a result, I will admit patient. Counseling: I had a detailed discussion with the patient and/or guardian regarding: the historical points, exam findings, and any diagnostic results supporting the discharge/admit diagnosis, lab results, radiology results, the need for further work-up and treatment in the hospital. Admission orders: after a detailed discussion of the patient's condition and case, the admit orders are written by me. ED course: Admitted to Dr. Villaseñor for volume overload, anasarca, dyspnea. 04/30 16:13 Order name: Blood Culture Adult (2) rn 04/30 16:13 Order name: BMP; Complete Time: 17:19 rn 04/30 16:13 Order name: CBC with Diff; Complete Time: 17:19 rn 04/30 16:13 Order name: Hepatic Function; Complete Time: 17:19 rn 04/30 16:13 Order name: NT PRO-BNP; Complete Time: 17:19 rn 04/30 16:13 Order name: Troponin (emerg Dept Use Only); Complete Time: 17:19 rn 04/30 16:13 Order name: XRAY CXR (1 view); Complete Time: 18:28 rn 04/30 16:13 Order name: EKG; Complete Time: 16:14 rn 04/30 16:13 Order name: Cardiac monitoring; Complete Time: 16:18 rn 04/30 19:25 Order name: T4 Free [facility] 04/30 19:25 Order name: Thyroid Stimulating Hormone [facility] 04/30 16:13 Order name: EKG - Nurse/Tech; Complete Time: 16:44 rn 04/30 16:13 Order name: IV Saline Lock; Complete Time: 16:44 rn 04/30 16:13 Order name: Labs collected and sent; Complete Time: 16:44 rn 04/30 16:13 Order name: O2 Per Protocol; Complete Time: 16:18 rn 04/30 16:13 Order name: O2 Sat Monitoring; Complete Time: 16:18 rn Administered Medications: 16:35 Drug: Lasix 40 mg Route: IVP; Site: right forearm; ph 17:44 Drug: Metoprolol 5 mg Route: IVP; Site: right forearm; bp 18:38 Follow up: Response: No adverse reaction bp 17:45 Drug: Metoprolol TARTRATE (Lopressor) 50 mg Route: PO; bp 18:39 Follow up: Response: No adverse reaction bp Disposition: 17:33 Critical Care:. rn Disposition: 04/30/18 17:36 Hospitalization ordered by Ernst Villaseñor for Inpatient Admission. Preliminary diagnosis are Anasarca, Acute kidney failure, unspecified, Hyperkalemia, Pulmonary edema, Pleural effusion, not elsewhere classified. - Bed requested for Intensive Care Unit. - Status is Inpatient Admission. tl2 - Condition is Fair. - Problem is new. - Symptoms have improved. UTI on Admission? No Critical care time excluding procedures: 17:33 Critical care time: Bedside Care: 25 minutes, Consultation: 5 minutes, Family rn Intervention: 5 minutes. Total time: 35 minutes Signatures: Dispatcher [employer] EDChetna Marsh RN RN Hanny Parada ms, Roman, MD MD rn Hall, Patricia, RN RN Ileana Sage, RN RN tl2 Bacilio Ballesteros, RN RN bp Corrections: (The following items were deleted from the chart) 19:36 17:36 Hospitalization Ordered by Ernst Villaseñor DO for Inpatient Admission. Preliminary ms diagnosis is Anasarca; Acute kidney failure, unspecified; Hyperkalemia; Pulmonary edema; Pleural effusion, not elsewhere classified. Bed requested for Intensive Care Unit. Status is Inpatient Admission. Condition is Fair. Problem is new. Symptoms have improved. UTI on Admission? No. rn 20:39 19:36 04/30/2018 17:36 Hospitalization Ordered by Ernst Villaseñor DO for Inpatient tl2 Admission. Preliminary diagnosis is Anasarca; Acute kidney failure, unspecified; Hyperkalemia; Pulmonary edema; Pleural effusion, not elsewhere classified. Bed requested for Intensive Care Unit. Status is Inpatient Admission. Condition is Fair. Problem is new. Symptoms have improved. UTI on Admission? No. ms
[2018-04-30] MEDS ORDERED: METOPROLOL TARTRATE 5 MG/5 ML INJ IV ONE (17:45)
[2018-04-30] MEDS ORDERED: METOPROLOL TAR 50 MG TAB ONE (17:45)
[2018-04-30] MEDS ORDERED: METOPROLOL TARTRATE 5 MG/5 ML INJ IV PRN (17:48)
[2018-04-30] MEDS ORDERED: SODIUM CHLORIDE 0.9% 10ML INJ IV PRN (17:48)
[2018-04-30] MEDS ORDERED: ACETAMINOPHEN 500 MG TAB PO PRN (17:48)
[2018-04-30] MEDS ORDERED: ONDANSETRON 4 MG/2 ML VIAL IV PRN (17:48)
[2018-04-30] MEDS: INSULIN -REGULAR HUMAN 50 UNIT/0.5 ML ML SQ SCH ×2 (18:00→23:47)
--- NOTE | 2018-04-30 18:07 | P.HP ---
Certification for Inpatient Patient admitted to: Inpatient With expected LOS: >2 Midnights Patient will require the following post-hospital care: Residential Practitioner: I am a practitioner with admitting privileges, knowledge of patient current condition, hospital course, and medical plan of care. Services: Services provided to patient in accordance with Admission requirements found in Title 42 Section 412.3 of the Code of Federal Regulations Patient History Date of Service: 04/30/18 Primary Care Provider: Dr. Jones; Nephrology-Dr. Eagle; Card-Dr. Ghtora; Pulm-Dr. Yoder Reason for admission: Anasarca, shortness of breath History of Present Illness: 62-year-old male presented emergency room with anasarca and shortness of breath. Patient was recently hospitalized for acute respiratory failure secondary to COPD/CHF. Patient also has chronic renal disease. On his recent admission he had a thoracentesis for right pleural effusion. The patient was diuresed. It was recommended at that time that the patient would need chronic dialysis. The patient refused. The patient was ultimately discharged. Patient was seen by cardiology, nephrology and pulmonology at that time. Today the patient reported increasing edema to the lower extremities up to the abdominal region. Patient also reported increasing shortness of breath especially with exertion. Palpitations noted. Patient denies any fever, chills. Patient feels weak. In the ER patient evaluated. Initial blood pressure her on 119/95, heart rate 122, recovery of 25. Patient afebrile. White count 9.5, hemoglobin 10.4. Sodium 139 come potassium 5.3, chloride 109, bicarb 20, BUN of 96, creatinine 5.5 with a GFR of 11. [place] 240[place] [id number]. Patient was admitted for further treatment. When I saw the patient ER, he appeared with increasing shortness of breath. Patient stable when not talking. Patient had labored breathing. Patient was given Lasix in the ER. Patient with past medical history of chronic renal disease stage 5, atrial fibrillation not on chronic anti coagulation therapy due to noncompliance, hypertension, diabetes, COPD, tobacco use, and anemia of chronic disease. Allergies penicillin Allergy (Verified 04/01/18 00:05) Anaphylaxis Home medications list reviewed: Yes Home Medications: Albuterol Inhaler [Ventolin Inhaler*] 2 puff IH Q6H PRN #1 hfa.aer.ad 04/05/18 Aspirin [Aspirin EC 81 MG] 81 mg PO DAILY #30 tablet. 04/05/18 Fluticasone/Salmeterol [Advair 250-50 Diskus] 1 each IH Q12HR #60 blst.w.dev 02/13 Furosemide [Lasix] 40 mg PO DAILY #30 tablet 04/05/18 Insulin Glargine Human [Lantus*] 10 units SQ BEDTIME #1 vial 04/05/18 Sevelamer Carbonate [Renvela*] 800 mg PO TIDWM #90 tablet 04/05/18 - Past Medical/Surgical History Diabetic: Yes -: COPD -: Diabetes mellitus type 2, insulin-dependent -: Hypertension -: Chronic renal disease, stage 5 -: Systolic congestive heart failure -: Atrial fibrillation not on chronic anticoagulation therapy -: Anemia of chronic disease -: Tobacco abuse -: Non compliance -: Obesity -: History of right foot amputation -: Right foot amputation, partial -: Appendectomy -: Dental extractions Psychosocial/ Personal History: Patient is single. He has no children. - Family History Mother -: Heart disease Father -: Heart disease, GI disease, Liver disease - Social History Smoking Status: Heavy Tobacco smoker (>10 cigarettes/day) Alcohol use: No CD- Drugs: No Caffeine use: Yes Place of Residence: Home Review of Systems General: Weakness Eyes: Unremarkable Respiratory: Shortness of Breath, SOB with Excertion, As per HPI Cardiovascular: Palpitations, As per HPI Gastrointestinal: Unremarkable Genitourinary: Unremarkable Musculoskeletal: Pedal edema, As per HPI Integumentary: As per HPI Neurological: Weakness, As per HPI Lymphatics: Unremarkable Physical Examination - Physical Exam General: Alert, Oriented x3, Cooperative, Mild distress HEENT: Atraumatic, Normocephalic, Mucous membr. moist/pink Neck: Supple, JVD distended Respiratory: Diminished (Diminished to the right side), Crackles/rales ( Crackles bilateral), Expiratory wheezes (Bilateral) Cardiovascular: Irregular heart rate/rhythm (Atrial fibrillation rate around 120 ) Gastrointestinal: Normal bowel sounds, Soft and benign, Non-distended, No tenderness, No masses, No rebound, No guarding, Other (Anasarca) Musculoskeletal: Other (Edema to the lower extremities 2+ bilateral) Integumentary: Tenderness/swelling (2+ pitting edema to the lower extremities up to the thigh region.) Neurological: Normal speech, Normal strength at 5/5 x4 extr, Normal tone, Normal affect - Studies Laboratory Data (last 24 hrs) 04/30/18 16:25: WBC 9.5, Hgb 10.4 L, Hct 32.6 L, Plt Count 292 04/30/18 16:25: Sodium 139, Potassium 5.3 H, BUN 96 H, Creatinine 5.50 H*, Glucose 240 H, Total Bilirubin 0.8, AST 21, ALT 70, Alkaline Phosphatase 75 Assessment and Plan - Plan Impression: Acute respiratory failure secondary to acute on chronic systolic CHF and COPD exacerbation complicated with acute on chronic renal disease stage 5 Atrial fibrillation not on chronic anti coagulation therapy due to poor compliance, rate elevated Anasarca secondary to acute on chronic systolic CHF and acute on chronic renal disease stage 5 Diabetes mellitus type 2, insulin-dependent, not controlled Hypertension with noted history of pulmonary hypertension Right recurrent pleural effusion with recent history of thoracentesis Tobacco abuse Anemia likely of chronic disease Subclinical hypothyroidism Plan: Acute respiratory failure secondary to acute on chronic systolic CHF and COPD exacerbation complicated with acute on chronic renal disease stage 5: Patient will be admitted to ICU. Will maintain oxygen saturations above 90%. Will start Lasix IV 80 mg b.i.d.. Will continue with COPD medication including IV steroids and breathing treatments. Will consult pulmonology, cardiology and nephrology to further assess. Patient will likely require dialysis. This will likely need to be long-term. Patient refused in the past. Patient seem somewhat agreeable at this time. Await further recommendations from pulmonology and nephrology. Atrial fibrillation not on chronic anti coagulation therapy due to poor compliance, rate elevated: Will start Lovenox at 1 milligram/kilograms subcu twice daily. Will provide medication for rate control. Cardiology consulted to further evaluate and treat Anasarca secondary to acute on chronic systolic CHF and acute on chronic renal disease stage 5: Will continue with IV Lasix. Will continue with fluid restriction. Nephrology, cardiology and pulmonology consulted. Diabetes mellitus type 2, insulin-dependent, not controlled: Will start sliding scale. Will monitor and adjust closely. Hypertension with noted history of pulmonary hypertension: Will provide medication IV. Right recurrent pleural effusion with recent history of thoracentesis: Will continue with diuresis. Patient may require repeat thoracentesis. Await further recommendations from pulmonology. Tobacco abuse: Patient may require nicotine patch. Will monitor closely. Anemia likely of chronic disease: Will monitor hemoglobin closely. Subclinical hypothyroidism: Will repeat tsh and free T4. Patient may require medication. Discharge Plan: Other (Skilled placement) Plan to discharge in: Greater than 2 days - Advance Directives Does patient have a Living Will: No Does patient have a Durable POA for Healthcare: No - Code Status/Comfort Care Code Status Assessed: Yes (Advanced directives address. Patient is do not resuscitate) Time Spent Managing Pts Care (In Minutes): 55
--- NOTE | 2018-04-30 18:11 | RAD REPORT ---
EXAM DESCRIPTION: [place] Single View04/30/2018 5:56 pm CLINICAL HISTORY: Chest pain COMPARISON: April 04, 2018 FINDINGS: A moderate right pleural effusion is suspected with right basilar atelectasis. Mild bilateral interstitial pulmonary edema is suspected. The heart remains enlarged
[2018-04-30] MEDS ORDERED: SOD POLYSTYREN SUL 15 GM/60 ML UCUP PO ONE (19:00)
[2018-04-30 19:24] LABS: Thyroid Stimulating Hormone 8.27 uIU/mL (0.360-3.740)
[2018-04-30] MEDS ORDERED: ENOXAPARIN 100 MG/ML SYR SQ SCH ×2 (21:00)
[2018-04-30] MEDS: METHYLPREDNISOLONE 125 MG INJ IV SCH (21:11)
--- NOTE | 2018-04-30 21:14 | P.CNS ---
Date of Consult: 04/30/18 Reason for Consult: Dyspnea Requesting Physician: Ernst Villaseñor Primary Care Provider: Dr. Jones; Nephrology-Dr. Eagle; Card-Dr. Ghotra; Pulm-Dr. Yoder Chief Complaint: Anasarca, shortness of breath History of Present Illness: 62-year-old male presented emergency room with anasarca and shortness of breath. Patient was recently hospitalized for acute respiratory failure secondary to COPD/CHF. Patient also has chronic renal disease. On his recent admission he had a thoracentesis for right pleural effusion. The patient was diuresed. It was recommended at that time that the patient would need chronic dialysis. The patient refused. The patient was ultimately discharged. Patient was seen by cardiology, nephrology and pulmonology at that time. Today the patient reported increasing edema to the lower extremities up to the abdominal region. Patient also reported increasing shortness of breath especially with exertion. Palpitations noted. Patient denies any fever, chills. Patient feels weak. In the ER patient evaluated. Initial blood pressure her on 119/95, heart rate 122, recovery of 25. Patient afebrile. White count 9.5, hemoglobin 10.4. Sodium 139 come potassium 5.3, chloride 109, bicarb 20, BUN of 96, creatinine 5.5 with a GFR of 11. [place] [id number]. Patient was admitted for further treatment. 16:15 This 62 yrs old Male presents to ER via Wheelchair with complaints of Kidney rn Problems. 16:15 The patient has shortness of breath at rest. Onset: The symptoms/episode began/occurred rn at an unknown time. Duration: The symptoms are continuous. Severity of symptoms: At their worst the symptoms were moderate in the emergency department the symptoms are unchanged. The patient has experienced similar episodes in the past. Reports recently told has CHF and kidney failure, told needs dialysis, refused, now returns because increased SOB and swelling. NO fever. + still has urine outpt with lasix. Allergies penicillin Allergy (Verified 04/01/18 00:05) Anaphylaxis Home medications list reviewed: Yes Home Medications: Albuterol Inhaler [Ventolin Inhaler*] 2 puff IH Q6H PRN #1 hfa.aer.ad 04/05/18 Aspirin [Aspirin EC 81 MG] 81 mg PO DAILY #30 tablet. 04/05/18 Fluticasone/Salmeterol [Advair 250-50 Diskus] 1 each IH Q12HR #60 blst.w.dev 02/13 Furosemide [Lasix] 40 mg PO DAILY #30 tablet 04/05/18 Insulin Glargine Human [Lantus*] 10 units SQ BEDTIME #1 vial 04/05/18 Sevelamer Carbonate [Renvela*] 800 mg PO TIDWM #90 tablet 04/05/18 - Past Medical/Surgical History Diabetic: Yes -: COPD -: Diabetes mellitus type 2, insulin-dependent -: Hypertension -: Chronic renal disease, stage 5 -: Systolic congestive heart failure -: Atrial fibrillation not on chronic anticoagulation therapy -: Anemia of chronic disease -: Tobacco abuse -: Non compliance -: Obesity -: History of right foot amputation -: Right foot amputation, partial -: Appendectomy -: Dental extractions Psychosocial/ Personal History: Patient is single. He has no children. - Family History Mother Medical History: Heart disease Father Medical History: Heart disease, GI disease, Liver disease - Social History Smoking Status: Current every day smoker Alcohol use: No CD- Drugs: No Caffeine use: Yes Place of Residence: Home Review of Systems 10-point ROS is otherwise unremarkable General: Weakness, Malaise Respiratory: Shortness of Breath, SOB with Excertion Cardiovascular: Orthopnea, Edema Neurological: Weakness Physical Examination Vitals reviewed in the chart. General: Oriented x3, Cooperative HEENT: Atraumatic, Mucous membr. moist/pink Neck: Supple, JVD distended Respiratory: Clear to auscultation bilaterally, Normal air movement Cardiovascular: Regular rate/rhythm, No rubs, Edema Gastrointestinal: Soft and benign, Non-distended Musculoskeletal: No clubbing, No contractures Integumentary: No rashes, No cyanosis Neurological: Normal speech Laboratory Data (last 24 hrs) 04/30/18 16:25: WBC 9.5, Hgb 10.4 L, Hct 32.6 L, Plt Count 292 04/30/18 16:25: Sodium 139, Potassium 5.3 H, BUN 96 H, Creatinine 5.50 H*, Glucose 240 H, Total Bilirubin 0.8, AST 21, ALT 70, Alkaline Phosphatase 75 Imagings Data: Reason for Exam: DYSPNEA Report Status: Signed EXAM DESCRIPTION: RADChest Single View04/30/2018 5:56 pm CLINICAL HISTORY: Chest pain COMPARISON: April 04, 2018 FINDINGS: A moderate right pleural effusion is suspected with right basilar atelectasis. Mild bilateral interstitial pulmonary edema is suspected. The heart remains enlarged Conclusions/Impression: A/ KITA likely CRS. Hyperkalemia. Acidosis. A/C Systolic CHF. CKD V with Proteinuria. DM II with proteinuria. HTN with CKD/ CHF. Anemia in chronic illness. Hypocalcemia. P/ Continue current POC and Medications. Agree with diuretics. Agree with Kayexalate. No NSAIDS. AM labs. Daily weight. May need to consider dialysis. Thank you kindly for the consultation. Greater than 30 minutes patient care.
[2018-04-30] MEDS: ARFORMOTEROL TARTRATE 15 MCG/2 ML VIAL.NEB NEB SCH (21:29)
[2018-04-30 22:18] LABS: Troponin I 0.02 ng/mL (0.0-0.045)
[2018-04-30 22:25] LABS: CKMB Creatine Kinase MB 15.7 ng/mL (0.3-3.6)
[2018-05-01 03:04] LABS: Urine Appearance CLEAR; Urine Bilirubin NEGATIVE (NEG); Urine Blood NEGATIVE (NEG); Urine Color YELLOW; Urine Glucose NEGATIVE (NEG); Urine Protein 3+ (NEG); Urine Specific Gravity 1.015 (1.005-1.030); Urine Urobilinogen 0.2 mg/dL (0.2-1.0)
[2018-05-01 03:17] LABS: Urine Bacteria <20 /HPF (NONE SEEN); Urine RBC <5 /HPF (NONE SEEN)
[2018-05-01 03:18] LABS: Urine Culture Reflex Order REFLEXED
[2018-05-01 05:17] LABS: Absolute Lymphocytes (CBC) 0.2 K/uL (0.7-4.9); Absolute Monocytes 0.1 K/uL (0.1-1.3); Absolute Neutrophil 6.7 K/uL (1.8-8.0); Basophils % 0.4 % (0-1.3); Eosinophils % 0.1 % (0-4.4); Hematocrit 30.9 % (39.6-49.0); Lymphocytes % 3.1 % (15.3-44.8); MCH 31.1 pg (27.0-35.0); MCV 97.3 fL (80-100); MPV 10.1 fL (7.6-11.3); RBC Red Blood Cell Count 3.18 M/uL (4.33-5.43)
[2018-05-01 05:36] LABS: Bilirubin Total 0.8 mg/dL (0.2-1.0); Magnesium 2.6 mg/dL (1.8-2.4); Phosphorus 7.9 mg/dL (2.5-4.9); Potassium 5.1 mmol/L (3.5-5.1); Protein, Total 7.2 g/dL (6.4-8.2); Troponin I 0.02 ng/mL (0.0-0.045); Uric Acid 13.7 mg/dL (3.5-7.2)
[2018-05-01 05:37] LABS: CKMB Creatine Kinase MB 15.2 ng/mL (0.3-3.6)
[2018-05-01 05:56] LABS: Blood Morphology Comment NOT SEEN (NOT SEEN); Platelet Estimate ADEQ
[2018-05-01] MEDS: ARFORMOTEROL TARTRATE 15 MCG/2 ML VIAL.NEB NEB SCH ×2 (07:52→20:25)
--- NOTE | 2018-05-01 08:27 | EKG ---
Test Date: 2018-04-30 Test Time: 16:35:06 Interactive Graphic Designer: JOANA MEASUREMENT RESULTS: Intervals: Rate: 130 [place]: QRSD: 86 QT: 320 QTc: 470 [place]: P: [place]: QRS: 110 T: -85 INTERPRETIVE STATEMENTS: Atrial fibrillation with rapid ventricular response Right axis deviation Low voltage QRS Cannot rule out Anterior infarct, age undetermined Abnormal ECG Compared to ECG 03/31/2018 14:25:51 Right-axis deviation now present Myocardial infarct finding now present Ventricular premature complex(es) no longer present ST (T wave) deviation no longer present Electronically Signed On 05-01-18 08:26:31 CDT by Lauri Valdez
[2018-05-01] MEDS: INSULIN -REGULAR HUMAN 50 UNIT/0.5 ML ML SQ SCH ×4 (08:39→20:54)
[2018-05-01] MEDS: FUROSEMIDE 40 MG/4 ML VIAL IV SCH ×2 (08:40→16:42)
[2018-05-01] MEDS: METHYLPREDNISOLONE 125 MG INJ IV SCH (08:40)
--- NOTE | 2018-05-01 08:54 | RAD REPORT ---
EXAM DESCRIPTION: [place] Single View05/01/2018 8:47 am CLINICAL HISTORY: Shortness of breath COMPARISON: April 30, 2018 FINDINGS: Moderate right pleural effusion is unchanged. Right basilar atelectasis is seen. Mild bilateral interstitial lung opacities are noted. The heart remains enlarged IMPRESSION: No change since the prior exam
--- NOTE | 2018-05-01 08:58 | P.PN ---
Subjective Date of Service: 05/01/18 Primary Care Provider: Dr. Jones; Nephrology-Dr. Eagle; Card-Dr. Ghotra; Pulm-Dr. Yoder Chief Complaint: Anasarca, shortness of breath Subjective: Other (Patient feels better. Still short of breath especially with exertion. Urine output 290.) Physical Examination - Vital Signs Temperature: 97.2 F Blood Pressure: 112/79 Pulse: 153 Respirations: 22 Pulse Ox (%): 98 - Physical Exam General: Alert, In no apparent distress, Oriented x3, Cooperative HEENT: Atraumatic Neck: Supple Respiratory: Diminished (To the right side), Crackles/rales (To the right side) Cardiovascular: Irregular heart rate/rhythm (Atrial fibrillation, rate elevated) Gastrointestinal: Normal bowel sounds, Soft and benign, Non-distended, No masses , No rebound, No guarding Musculoskeletal: No tenderness, No warmth Integumentary: Tenderness/swelling (Edema to the lower extremities noted. No significant change.) Neurological: Normal speech, Normal strength at 5/5 x4 extr, Normal tone, Normal affect - Studies Laboratory Data (last 24 hrs) 04/30/18 16:25: WBC 9.5, Hgb 10.4 L, Hct 32.6 L, Plt Count 292 04/30/18 16:25: Sodium 139, Potassium 5.3 H, BUN 96 H, Creatinine 5.50 H*, Glucose 240 H, Total Bilirubin 0.8, AST 21, ALT 70, Alkaline Phosphatase 75 Medications List Reviewed: Yes Assessment & Plan Discharge Plan: Other (Home versus skilled placement) Plan to discharge in: Greater than 2 days Physician Review Additional Text: Impression: Acute respiratory failure secondary to acute on chronic systolic CHF and COPD exacerbation complicated with acute on chronic renal disease stage 5 Atrial fibrillation not on chronic anti coagulation therapy due to poor compliance, rate elevated Anasarca secondary to acute on chronic systolic CHF and acute on chronic renal disease stage 5 Diabetes mellitus type 2, insulin-dependent, not controlled Hypertension with noted history of pulmonary hypertension with proteinuria Right recurrent pleural effusion with recent history of thoracentesis Tobacco abuse Anemia likely of chronic disease Subclinical hypothyroidism Hyperkalemia Plan: Acute respiratory failure secondary to acute on chronic systolic CHF and COPD exacerbation complicated with acute on chronic renal disease stage 5: Patient patient remained stable in ICU. Will maintain saturations above 90%. Will continue with IV Lasix. Patient also being treated for COPD. Await further recommendations from pulmonology, cardiology and nephrology. Patient will likely require dialysis. This was again discussed with the patient. He is considering this but would like to get more information from nephrology. Urine output poor. Renal function slightly worse than yesterday. Atrial fibrillation not on chronic anti coagulation therapy due to poor compliance, rate elevated: Will start heparin. Pharmacy to adjust medication due to renal failure. Heart rate accelerated. Will provide medication for rate control. Await further recommendations from cardiology. Anasarca secondary to acute on chronic systolic CHF and acute on chronic renal disease stage 5: Will continue with IV Lasix. Will continue with fluid restriction. Nephrology, cardiology and pulmonology consulted. Diabetes mellitus type 2, insulin-dependent, not controlled: Will continue with sliding scale. Will monitor and adjust closely. Hypertension with noted history of pulmonary hypertension: Will provide medication IV. Right recurrent pleural effusion with recent history of thoracentesis: Will continue with diuresis. Patient may require repeat thoracentesis. Await further recommendations from pulmonology. Tobacco abuse: Patient may require nicotine patch. Will monitor closely. Anemia likely of chronic disease: Overall stable. Will monitor hemoglobin closely. Subclinical hypothyroidism: Repeat tsh and free T4 reviewed. This remained stable. Hyperkalemia: Patient given Kayexalate. Will monitor closely. Time Spent Managing Pts Care (In Minutes): 55
[2018-05-01] MEDS ORDERED: HEPARIN/D5W 25,000 UNIT/500 ML BAG IV PRN (09:00)
[2018-05-01] MEDS ORDERED: HEPARIN 10,000 UNIT/10 ML VIAL IV PRN (09:00)
[2018-05-01] MEDS ORDERED: ENOXAPARIN 100 MG/ML SYR SQ SCH (09:00)
[2018-05-01] MEDS ORDERED: PANTOPRAZOLE 40 MG INJ IVP SCH (09:00)
[2018-05-01] MEDS: predniSONE 20 MG TAB PO SCH ×2 (09:00→20:54)
[2018-05-01] MEDS ORDERED: HEPARIN 10,000 UNIT/10 ML VIAL IV SCH (09:00)
[2018-05-01] MEDS: PANTOPRAZOLE 40MG TABLET PO SCH (09:54)
--- NOTE | 2018-05-01 10:32 | P.CNS ---
Date of Consult: 05/01/18 Primary Care Provider: Dr. Jones; Nephrology-Dr. Eagle; Card-Dr. Ghotra; Pulm-Dr. Yoder Chief Complaint: Anasarca, shortness of breath History of Present Illness: Patient is 62 years of age well known to me with recurrent hospital admission with COPD CHF also has chronic renal disease last admission patient had thoracentesis patient has refused dialysis he has chronic renal failure admitted to the hospital with increasing lower extremity edema shortness of breath patient denies any fever chills or chest pain was found to have a recurrent right-sided pleural effusion patient also has end-stage renal disease he does not want to be intubated undergo CPR has refused dialysis wants comfort care measures only also patient is in AFib Patient is compliant with his medication Allergies penicillin Allergy (Verified 04/30/18 21:59) Anaphylaxis Home Medications: Albuterol Inhaler [Ventolin Inhaler*] 2 puff IH Q6H PRN #1 hfa.aer.ad 04/05/18 Aspirin [Aspirin EC 81 MG] 81 mg PO DAILY #30 tablet.dr 04/05/18 Fluticasone/Salmeterol [Advair 250-50 Diskus] 1 each IH Q12HR #60 blst.w.dev 02/13 Furosemide [Lasix] 40 mg PO DAILY #30 tablet 04/05/18 Insulin Glargine Human [Lantus*] 10 units SQ BEDTIME #1 vial 04/05/18 Sevelamer Carbonate [Renvela*] 800 mg PO TIDWM #90 tablet 04/05/18 - Past Medical/Surgical History Diabetic: Yes -: COPD -: Diabetes mellitus type 2, insulin-dependent -: Hypertension -: Chronic renal disease, stage 5 -: Systolic congestive heart failure -: Atrial fibrillation not on chronic anticoagulation therapy -: Anemia of chronic disease -: Tobacco abuse -: Non compliance -: Obesity -: History of right foot amputation -: Right foot amputation, partial -: Appendectomy -: Dental extractions Psychosocial/ Personal History: Patient is single. He has no children. - Family History Mother Medical History: Heart disease Father Medical History: Heart disease, GI disease, Liver disease Sister Medical History: Heart disease, Hypertension, Diabetes Brother Medical History: Diabetes, Cancer - Social History Smoking Status: Current every day smoker Alcohol use: No CD- Drugs: No Caffeine use: Yes Place of Residence: Home Review of Systems 10-point ROS is otherwise unremarkable General: Weakness Respiratory: Shortness of Breath Cardiovascular: Edema Physical Examination Temp Pulse Resp BP Pulse Ox 97.2 F 153 H 22 H 112/79 98 05/01/18 08:58 05/01/18 08:58 05/01/18 08:58 05/01/18 08:58 05/01/18 08:58 General: Alert, Oriented x3 HEENT: Atraumatic Neck: Supple Respiratory: Diminished (Diminished on the right side) Cardiovascular: Edema (3+ edema), Irregular heart rate/rhythm Laboratory Data (last 24 hrs) 04/30/18 16:25: WBC 9.5, Hgb 10.4 L, Hct 32.6 L, Plt Count 292 04/30/18 16:25: Sodium 139, Potassium 5.3 H, BUN 96 H, Creatinine 5.50 H*, Glucose 240 H, Total Bilirubin 0.8, AST 21, ALT 70, Alkaline Phosphatase 75 - Problems (1) Pleural effusion Current Visit: No Status: Acute Plan: Patient is 62 years of age admitted with increasing shortness of breath recurrent right-sided pleural effusion lower extremity edema patient has end- stage renal disease is currently DNR refused dialysis patient is also in AFib high risk for bleeding due to his end-stage renal disease recommend patient be referred to hospice care comfort measures Dc anticoagulants start him on oral aspirin continue with bronchodilators currently stable vital signs are also stable
[2018-05-01] MEDS: METOPROLOL XL 25 MG TAB PO SCH ×2 (11:00→11:40)
[2018-05-01] MEDS ORDERED: METOLAZONE 5 MG TABLET PO SCH (12:00)
[2018-05-01] MEDS: ASPIRIN EC 81 MG TAB PO SCH (12:22)
[2018-05-01] MEDS: SEVELAMER CARBONATE 800 MG TABLET PO SCH ×2 (12:22→16:40)
[2018-05-01] MEDS: METOPROLOL TARTRATE 5 MG/5 ML INJ IV SCH ×3 (12:24→20:54)
--- NOTE | 2018-05-01 15:01 | CON ---
History Of Present Illness: Mr. Shaver is 62. I am asked to see him because of atrial fibrillation. He has had atrial fibrillation before. He does not take any medicines for atrial fibrillation. He has end-stage renal disease with anasarca, pleural effusions, anemia, lot of the usual metabolic prob lems that go with renal failure. In the past, the patient has refused dialysis and apparently he has again this hospital admission. At the present time, he was too somnolent to give any coherent answe rs. I think he has had some sedatives and was tired. Physical Examination: General: He is somnolent. Vital Signs: 5 feet 11 inches, 240 pounds. Heart rate 130, irregularly irregular. Abdomen: Obese. Extremities: Edema. Laboratory Data: The EKG shows atrial fibrillation, heart rate 130, there is a right axis deviation, poor R-wave progression, possible anterior infarct. He has had an echocardiogram, fairly recently. It was from roughly 1 month ago. His ejection fraction was slightly almost normal at 46%. There is mitral annular calcification. I think the patient with his renal function could not tolerate Betapa ce. With his ejection fraction, he would not be a candidate for therapy with dronedarone, flecainide , or Rythmol. I will recommend that we slow his heart rate with a beta-fitz. We will use metopro lol IV to try and keep his heart rate between the 80 to 95 range if possible and see where we are goi ng to go. I do not think anticoagulation is womack with his underlying anemia, and his wj-wnz-[id number] ate status. I think we are likely to cause complications more so than to do anything that is helpful to the patient. PERI/ADAN Voice ID: [id number] Report ID: [id number]
--- NOTE | 2018-05-01 17:44 | P.PN ---
Date of Service: 05/01/18 Vital Signs Temp Pulse Resp BP Pulse Ox 97.0 F 133 H 22 H 83/62 L 97 05/01/18 16:00 05/01/18 17:00 05/01/18 17:00 05/01/18 17:00 05/01/18 17:00 Medications Acetaminophen (Tylenol -Extra Strength) 500 mg PO Q4HP PRN PRN Reason: [id number] Stop: 05/30/18 17:49 Arformoterol Tartrate (Brovana) 15 mcg NEB BIDRESP ISH Stop: 05/30/18 20:01 Last Admin: 05/01/18 07:52 Dose: 15 mcg Aspirin (Aspirin Ec) 81 mg PO DAILY ISH Stop: 05/31/18 09:01 Last Admin: 05/01/18 12:22 Dose: 81 mg Furosemide (Lasix) 80 mg IV BIDL ISH Stop: 05/31/18 09:01 Last Admin: 05/01/18 16:42 Dose: Not Given Insulin Glargine (Lantus) 10 units SQ BEDTIME ISH Stop: 05/31/18 21:01 Insulin Human Regular (Novolin -R) 0 unit SQ [facility]; Protocol Stop: 05/31/18 07:31 Last Admin: 05/01/18 16:40 Dose: 4 unit Ipratropium [place] (Atrovent Neb) 0.5 mg NEB [id number] PRN PRN Reason: SHORTNESS OF BREATH Stop: 05/30/18 20:01 Metoprolol Tartrate (Lopressor 1 Mg/Ml Inj) 5 mg IV Q4HR ISH Stop: 05/31/18 13:01 Last Admin: 05/01/18 16:42 Dose: Not Given Ondansetron HCl (Zofran) 4 mg IV Q6HP PRN PRN Reason: NAUSEA / VOMITING Stop: 05/30/18 17:49 Pantoprazole Sodium (Protonix Tab) 40 mg PO ACB ISH Stop: 05/31/18 10:01 Last Admin: 05/01/18 09:54 Dose: Not Given Prednisone (Deltasone) 20 mg PO BID ISH Stop: 05/31/18 09:01 Last Admin: 05/01/18 09:00 Dose: Not Given Sevelamer Carbonate (Renvela) 800 mg PO TIDWM ISH Stop: 05/31/18 12:01 Last Admin: 05/01/18 16:40 Dose: 800 mg Sodium Chloride (Normal Saline Flush) 10 ml IV BID ISH Stop: 05/30/18 21:01 Last Admin: 05/01/18 08:43 Dose: 10 ml Lab Results (last 24 hrs) 04/30/18 16:25: TSH 8.270 H, Free T4 0.89 Microbiology Results 04/30/18 16:45 Blood - Blood Aerobic Blood Culture - Preliminary No growth in 24 hours. 04/30/18 16:45 Blood - Blood Anaerobic Blood Culture - Preliminary No growth in 24 hours. 04/30/18 16:25 Blood - Blood Aerobic Blood Culture - Preliminary No growth in 24 hours. 04/30/18 16:25 Blood - Blood Anaerobic Blood Culture - Preliminary No growth in 24 hours. Assessment/ Plan: Nephrology. Feeling better this morning but still with malaise and dyspnea. CPS improved without CP. No acute events overnight. Fair urine output. Vitals, medications, blood work and imaging reviewed in the chart. Vitals reviewed in the chart. General: Oriented x3, Cooperative HEENT: Atraumatic, Mucous membr. moist/pink Neck: Supple, JVD distended Respiratory: Clear to auscultation bilaterally, Normal air movement Cardiovascular: Regular rate/rhythm, No rubs, Edema Gastrointestinal: Soft and benign, Non-distended Musculoskeletal: No clubbing, No contractures. Partial foot amputation. Integumentary: No rashes, No cyanosis Neurological: Normal speech Greater than 30 minutes patient care. Laboratory Data (last 24 hrs) 04/30/18 16:25: WBC 9.5, Hgb 10.4 L, Hct 32.6 L, Plt Count 292 04/30/18 16:25: Sodium 139, Potassium 5.3 H, BUN 96 H, Creatinine 5.50 H*, Glucose 240 H, Total Bilirubin 0.8, AST 21, ALT 70, Alkaline Phosphatase 75 Imagings Data: Reason for Exam: DYSPNEA Report Status: Signed EXAM DESCRIPTION: [place] Single View04/30/2018 5:56 pm CLINICAL HISTORY: Chest pain COMPARISON: April 04, 2018 FINDINGS: A moderate right pleural effusion is suspected with right basilar atelectasis. Mild bilateral interstitial pulmonary edema is suspected. The heart remains enlarged Conclusions/Impression: A/ KITA likely CRS. Hyperkalemia. Acidosis. A/C Systolic CHF. CKD V with Proteinuria. DM II with proteinuria. HTN with CKD/ CHF. Anemia in chronic illness. Hypocalcemia. Rapid Afib. P/ Continue current POC and Medications. Continue Lasix. Give a dose of metolazone. Will have to be cautious due to hypotension. On metoprolol and heparin gtt for rapid afib. The patient would likely benefit from dialysis at this time given his progressive CKD/ DM nephropathy with associated Anasarca/ CHF but he is currently refusing. Wean prednisone as tolerated. No NSAIDS. Low sodium diet. AM labs. Daily weight. Case discussed with Dr. Villaseñor.
[2018-05-01] MEDS ORDERED: INSULIN GLARGINE 100 UNITS/ML SQ SCH (21:00)
[2018-05-02] MEDS: METOPROLOL TARTRATE 5 MG/5 ML INJ IV SCH ×7 (01:59→23:54)
[2018-05-02 05:59] LABS: Absolute Lymphocytes (CBC) 0.5 K/uL (0.7-4.9); Absolute Monocytes 0.4 K/uL (0.1-1.3); Absolute Neutrophil 9.5 K/uL (1.8-8.0); Basophils % 0.2 % (0-1.3); Hematocrit 31.2 % (39.6-49.0); MCH 30.9 pg (27.0-35.0); MPV 10.6 fL (7.6-11.3); Monocytes % 4.1 % (3.3-12.3); RBC Red Blood Cell Count 3.22 M/uL (4.33-5.43)
[2018-05-02 06:02] LABS: Albumin 2.9 g/dL (3.4-5.0); Bilirubin Total 0.5 mg/dL (0.2-1.0); Magnesium 2.6 mg/dL (1.8-2.4); Potassium 5.3 mmol/L (3.5-5.1); Protein, Total 7.3 g/dL (6.4-8.2)
[2018-05-02 06:06] VITALS: BMI 33.8
[2018-05-02] MEDS: ARFORMOTEROL TARTRATE 15 MCG/2 ML VIAL.NEB NEB SCH ×2 (07:39→20:45)
--- NOTE | 2018-05-02 08:02 | RAD REPORT ---
EXAM DESCRIPTION: RAD - Chest Single View - 05/02/2018 6:43 am CLINICAL HISTORY: Respiratory failure, pleural effusion, CHF COMPARISON: May 01 TECHNIQUE: AP portable chest image was obtained 0630 hours . FINDINGS: Right pleural effusion with lung base infiltrate and/ or atelectasis again noted. Central vasculature remains mildly prominent. Central interstitial markings are also prominent. Cardiomegaly has not changed. No acute bony abnormality seen. No acute aortic findings suspected. IMPRESSION: CHF/volume overload pattern and right pleural effusion are stable from prior day study.
[2018-05-02] MEDS: INSULIN -REGULAR HUMAN 50 UNIT/0.5 ML ML SQ SCH ×4 (08:07→22:25)
[2018-05-02] MEDS: FUROSEMIDE 40 MG/4 ML VIAL IV SCH ×2 (08:09→17:07)
[2018-05-02] MEDS: SEVELAMER CARBONATE 800 MG TABLET PO SCH ×3 (08:10→17:07)
[2018-05-02] MEDS: predniSONE 20 MG TAB PO SCH ×2 (08:10→22:26)
[2018-05-02] MEDS: ASPIRIN EC 81 MG TAB PO SCH (08:10)
[2018-05-02] MEDS: PANTOPRAZOLE 40MG TABLET PO SCH (08:10)
[2018-05-02 08:34] LABS: Blood Morphology Comment NOT SEEN (NOT SEEN); Platelet Estimate ADEQ; Urine White Blood Cell Casts OK
[2018-05-02] MEDS ORDERED: SOD POLYSTYREN SUL 15 GM/60 ML UCUP PO ONE (09:00)
--- NOTE | 2018-05-02 11:19 | P.PN ---
Subjective Date of Service: 05/02/18 Primary Care Provider: Dr. Jones; Nephrology-Dr. Eagle; Card-Dr. Ghotra; Pulm-Dr. Yoder Chief Complaint: Anasarca, shortness of breath Subjective: Other (Patient doing slightly better. Still with shortness of breath and tachycardia.) Physical Examination - Vital Signs Temperature: 98.1 F Blood Pressure: 114/92 Pulse: 132 Respirations: 15 Pulse Ox (%): 96 - Physical Exam General: Alert, Cooperative, Mild distress HEENT: Atraumatic Neck: Supple Respiratory: Diminished (To the right side), Crackles/rales (Bilateral), Expiratory wheezes (Bilateral) Cardiovascular: Irregular heart rate/rhythm (Atrial fibrillation, rate elevated) Gastrointestinal: Normal bowel sounds, Soft and benign, Non-distended, No masses , No rebound, No guarding Integumentary: Tenderness/swelling (Still with 2+ pitting edema to the lower extremities up to the thighs) Neurological: Normal speech, Normal strength at 5/5 x4 extr, Normal tone, Normal affect - Studies Medications List Reviewed: Yes Assessment & Plan Discharge Plan: Home (With hospice) Plan to discharge in: 24 Hours Physician Review Additional Text: Impression: Acute respiratory failure secondary to acute on chronic systolic CHF and COPD exacerbation complicated with acute on chronic renal disease stage 5 Atrial fibrillation not on chronic anti coagulation therapy due to poor compliance, rate elevated Anasarca secondary to acute on chronic systolic CHF and acute on chronic renal disease stage 5 Diabetes mellitus type 2, insulin-dependent, not controlled Hypertension with noted history of pulmonary hypertension with proteinuria Right recurrent pleural effusion with recent history of thoracentesis Tobacco abuse Anemia likely of chronic disease Subclinical hypothyroidism Hyperkalemia UTI Plan: Acute respiratory failure secondary to acute on chronic systolic CHF and COPD exacerbation complicated with acute on chronic renal disease stage 5: Renal function continues to be worse. Case discussed at length with nephrology and pulmonology yesterday. Patient understands his current condition. He does not desire dialysis. He is very adamant about this. He understands the risks of not proceeding with dialysis. He wishes to be DNR. Hospice addressed with patient. Patient agrees. Will transfer the patient to the floor. Will have hospital social worker help with hospice at home. Anticipate discharge in the next 1- 2 days once hospice can be arranged. Will continue with current treatment. Patient refuses Kayexalate. Continue with IV Lasix. Atrial fibrillation not on chronic anti coagulation therapy due to poor compliance, rate elevated: Since the patient does not desire any aggressive treatment. Anti coagulation therapy has not been initiated. Anasarca secondary to acute on chronic systolic CHF and acute on chronic renal disease stage 5: Will continue with IV Lasix. Will continue with fluid restriction. 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 Will adjust basal insulin. Will monitor and adjust closely. Hypertension with noted history of pulmonary hypertension: Will continue with medication. Right recurrent pleural effusion with recent history of thoracentesis: Will continue with diuresis. Will pursue hospice Tobacco abuse: Patient may require nicotine patch. Will monitor closely. Anemia likely of chronic disease: Overall stable. Will monitor hemoglobin closely. Subclinical hypothyroidism: Repeat tsh and free T4 reviewed. This remained stable. Hyperkalemia: Patient does not desire Kayexalate. Will monitor closely. UTI: Will start IV Levaquin.. Time Spent Managing Pts Care (In Minutes): 55
[2018-05-02] MEDS ORDERED: Levofloxacin 250mg IV 250 MG/50 ML BAG IV SCH (12:00)
[2018-05-02] MEDS: IPRATROPIUM BROM 0.5MG/2.5ML NEB PRN (20:45)
[2018-05-02] MEDS ORDERED: INSULIN GLARGINE 100 UNITS/ML SQ SCH (21:00)
[2018-05-03] MEDS: METOPROLOL TARTRATE 5 MG/5 ML INJ IV SCH ×2 (05:08→08:36)
[2018-05-03 05:14] LABS: Absolute Lymphocytes (CBC) 0.9 K/uL (0.7-4.9); Absolute Monocytes 0.5 K/uL (0.1-1.3); Absolute Neutrophil 10.3 K/uL (1.8-8.0); Basophils % 0.4 % (0-1.3); Hematocrit 31.5 % (39.6-49.0); Lymphocytes % 7.4 % (15.3-44.8); MCH 30.4 pg (27.0-35.0); MCV 97.2 fL (80-100); MPV 10.5 fL (7.6-11.3); Monocytes % 4.5 % (3.3-12.3); RBC Red Blood Cell Count 3.24 M/uL (4.33-5.43)
[2018-05-03 05:34] LABS: Albumin 3.1 g/dL (3.4-5.0); Bilirubin Total 0.5 mg/dL (0.2-1.0); Magnesium 2.8 mg/dL (1.8-2.4); Potassium 5.1 mmol/L (3.5-5.1); Protein, Total 7.1 g/dL (6.4-8.2)
[2018-05-03] MEDS: INSULIN -REGULAR HUMAN 50 UNIT/0.5 ML ML SQ SCH ×4 (07:30→20:29)
[2018-05-03] MEDS: ARFORMOTEROL TARTRATE 15 MCG/2 ML VIAL.NEB NEB SCH ×2 (08:10→19:14)
[2018-05-03] MEDS: ASPIRIN EC 81 MG TAB PO SCH (08:44)
[2018-05-03] MEDS: SEVELAMER CARBONATE 800 MG TABLET PO SCH ×3 (08:44→17:06)
[2018-05-03] MEDS: predniSONE 20 MG TAB PO SCH (08:44)
[2018-05-03] MEDS: FUROSEMIDE 40 MG/4 ML VIAL IV SCH ×2 (08:44→17:06)
[2018-05-03] MEDS: PANTOPRAZOLE 40MG TABLET PO SCH (08:45)
[2018-05-03] MEDS ORDERED: Meropenem 500 MG VIAL IV SCH (09:00)
[2018-05-03] MEDS: Meropenem 500 MG in NA CHLORIDE 0.9% 100 ML IV SCH ×2 (09:00→21:00)
--- NOTE | 2018-05-03 11:01 | P.PN ---
Subjective Date of Service: 05/03/18 Primary Care Provider: Dr. Jones; Nephrology-Dr. Eagle; Card-Dr. Ghotra; Pulm-Dr. Yoder Chief Complaint: Anasarca, shortness of breath Subjective: Other (Patient doing better. Found to have ESBL-E. Coli in urine.) Physical Examination - Vital Signs Temperature: 96.9 F Blood Pressure: 119/86 Pulse: 133 Respirations: 20 Pulse Ox (%): 95 - Physical Exam General: Alert, In no apparent distress, Oriented x3, Cooperative HEENT: Atraumatic Neck: Supple Respiratory: Diminished (to the right side) Cardiovascular: Irregular heart rate/rhythm (Atrial fibrillation) Gastrointestinal: Normal bowel sounds, Soft and benign, Non-distended, No tenderness, No masses, No rebound, No guarding Musculoskeletal: No tenderness, No warmth Integumentary: Tenderness/swelling (2 plus pitting edema to the lower extremities. No significant change) Neurological: Normal speech, Normal strength at 5/5 x4 extr, Normal tone, Normal affect - Studies Medications List Reviewed: Yes Assessment & Plan Discharge Plan: Home (With home health for IV antibiotic therapy and then hospice) Plan to discharge in: 24 Hours Physician Review Additional Text: Impression: Acute respiratory failure secondary to acute on chronic systolic CHF and COPD exacerbation complicated with acute on chronic renal disease stage 5 Atrial fibrillation not on chronic anti coagulation therapy due to poor compliance, rate elevated Anasarca secondary to acute on chronic systolic CHF and acute on chronic renal disease stage 5 UTI, urine culture positive for E coli-ESBL Diabetes mellitus type 2, insulin-dependent, not controlled Hypertension with noted history of pulmonary hypertension with proteinuria Right recurrent pleural effusion with recent history of thoracentesis Tobacco abuse Anemia likely of chronic disease Subclinical hypothyroidism Hyperkalemia Plan: Acute respiratory failure secondary to acute on chronic systolic CHF and COPD exacerbation complicated with acute on chronic renal disease stage 5: Renal function continues decline but remained stable. Patient continues against having dialysis. He desires hospice. Social work to arrange for hospice. Patient found to have UTI, positive for E coli-ESBL. Patient willing to get IV antibiotic therapy for this. Social work to help arrange for IV antibiotic therapy-meropenem 500 mg IV twice daily for 1 week at home, then patient can be transitioned to hospice at home. Will discuss with nephrology later today. Continue with IV Lasix. Continue with COPD treatment. Likely home tomorrow once arrangements for IV antibiotic therapy and PICC line in place. Atrial fibrillation not on chronic anti coagulation therapy due to poor compliance, rate elevated: Since the patient does not desire any aggressive treatment, anti coagulation therapy is not recommended. Patient will pursue hospice. Will continue with aspirin 81 mg daily. Will start low-dose beta- fitz-metoprolol 12.5 mg 1 pill twice daily for better rate control. UTI, urine culture positive for E coli-ESBL: IV antibiotic therapy adjusted today. Patient now on meropenem 500 mg IV twice daily. Will make arrangements for the patient to continue with IV antibiotic therapy at home with home health. Social work to help in this process. PICC line has been ordered. This will likely be done later tonight or tomorrow. Patient will transition from home health with IV antibiotic therapy then to hospice after treatment. Anasarca secondary to acute on chronic systolic CHF and acute on chronic renal disease stage 5: Will continue with IV Lasix. Will continue with fluid restriction. Patient to elevate legs when sitting or lying. 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 Will continue to adjust Lantus for better diabetic control. Will monitor and adjust closely. Hypertension with noted history of pulmonary hypertension: Will will start low- dose metoprolol 12.5 mg 1 pill twice daily for better control. Right recurrent pleural effusion with recent history of thoracentesis: Will continue with diuresis. Patient plans for hospice Tobacco abuse: Patient may require nicotine patch. Will monitor closely. Anemia likely of chronic disease: Overall stable. Will monitor hemoglobin closely. Subclinical hypothyroidism: Repeat tsh and free T4 reviewed. This remained stable. Recheck thyroid panel in 1 month Hyperkalemia: Patient does not desire Kayexalate. Potassium improved. Will monitor closely. Time Spent Managing Pts Care (In Minutes): 55
[2018-05-03] MEDS: METOPROLOL TAR 25 MG TAB PO SCH (17:05)
[2018-05-03] MEDS: IPRATROPIUM BROM 0.5MG/2.5ML NEB PRN (19:14)
[2018-05-03] MEDS: INSULIN GLARGINE 100 UNITS/ML SQ SCH (20:27)
[2018-05-03] MEDS: predniSONE 10 MG TAB PO SCH (20:27)
[2018-05-03] MEDS ORDERED: predniSONE 20 MG TAB PO SCH (21:00)
[2018-05-04 05:09] LABS: Absolute Lymphocytes (CBC) 0.7 K/uL (0.7-4.9); Absolute Monocytes 0.4 K/uL (0.1-1.3); Absolute Neutrophil 8.9 K/uL (1.8-8.0); Hematocrit 31.9 % (39.6-49.0); MCH 31.4 pg (27.0-35.0); MCV 96.3 fL (80-100); MPV 10.4 fL (7.6-11.3); Monocytes % 4.1 % (3.3-12.3); RBC Red Blood Cell Count 3.31 M/uL (4.33-5.43)
[2018-05-04 05:39] LABS: Bilirubin Total 0.5 mg/dL (0.2-1.0); Magnesium 2.7 mg/dL (1.8-2.4); Potassium 5.2 mmol/L (3.5-5.1); Protein, Total 7.1 g/dL (6.4-8.2)
[2018-05-04] MEDS: METOPROLOL TAR 25 MG TAB PO SCH ×2 (05:42→16:50)
[2018-05-04] MEDS: INSULIN -REGULAR HUMAN 50 UNIT/0.5 ML ML SQ SCH ×4 (07:30→21:38)
[2018-05-04] MEDS: ARFORMOTEROL TARTRATE 15 MCG/2 ML VIAL.NEB NEB SCH ×2 (07:52→20:23)
[2018-05-04] MEDS ORDERED: levoFLOXacin 250 MG TAB PO SCH (08:00)
[2018-05-04] MEDS: SEVELAMER CARBONATE 800 MG TABLET PO SCH ×3 (08:42→16:50)
[2018-05-04] MEDS: PANTOPRAZOLE 40MG TABLET PO SCH (08:42)
[2018-05-04] MEDS: Meropenem 500 MG in NA CHLORIDE 0.9% 100 ML IV SCH ×4 (08:43→22:46)
[2018-05-04] MEDS: predniSONE 10 MG TAB PO SCH ×2 (08:43→21:37)
[2018-05-04] MEDS: ASPIRIN EC 81 MG TAB PO SCH (08:43)
[2018-05-04] MEDS: FUROSEMIDE 40 MG/4 ML VIAL IV SCH ×2 (08:46→14:19)
--- NOTE | 2018-05-04 09:45 | P.PN ---
Subjective Date of Service: 05/04/18 Primary Care Provider: Dr. Jones; Nephrology-Dr. Eagle; Card-Dr. Ghotra; Pulm-Dr. Yoder Chief Complaint: Anasarca, shortness of breath Subjective: Other (Patient doing better. Patient desires to go vote today. Patient is willing to try dialysis.) Physical Examination - Vital Signs Temperature: 97.4 F Blood Pressure: 130/99 Pulse: 100 Respirations: 16 Pulse Ox (%): 97 - Physical Exam General: Alert, In no apparent distress, Oriented x3, Cooperative HEENT: Atraumatic Neck: Supple Respiratory: Other (Better air movement. Less diminished to the right side) Cardiovascular: Normal pulses, Regular rate/rhythm Gastrointestinal: Normal bowel sounds, Soft and benign, Non-distended, No tenderness, No masses, No rebound, No guarding Musculoskeletal: No erythema, No tenderness, No warmth Integumentary: Tenderness/swelling (Edema to the lower extremities still unchanged.) Neurological: Normal speech, Normal strength at 5/5 x4 extr, Normal tone, Normal affect - Studies Medications List Reviewed: Yes Assessment & Plan Discharge Plan: Home Plan to discharge in: Greater than 2 days Physician Review Additional Text: Impression: Acute respiratory failure secondary to acute on chronic systolic CHF and COPD exacerbation complicated with acute on chronic renal disease stage 5 Atrial fibrillation not on chronic anti coagulation therapy due to poor compliance, rate elevated Anasarca secondary to acute on chronic systolic CHF and acute on chronic renal disease stage 5 UTI, urine culture positive for E coli-ESBL Diabetes mellitus type 2, insulin-dependent, 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 Clinically stable. After long discussion yesterday with the patient with nephrology, patient has decided to try dialysis. PICC line held due to need for id dialysis catheter. Will hold hospice referral at this time. Patient desires to vote today or he will leave AMA. Case discussed with case management who spoke with administration. Patient will be given a pass to go vote and then return to the hospital to continue his care. Spoke with nephrology who agrees. Hepatitis panel with quantitative lab obtained. Will check chest x-ray to rule out TB. Will consult surgery for dialysis catheter placement. Patient will likely start dialysis tomorrow. Patient will likely need continued to remain in the hospital for at least 5-7 days. This will give company of time to get treated for his UTI. Urine culture now positive for enterococcus. Patient already had E coli-ESBL. Will continue with IV Merrem. Will add Levaquin for coverage of Enterococcus. Social work to help in getting chronic dialysis setup. Atrial fibrillation not on chronic anti coagulation therapy due to poor compliance, rate elevated: Since the patient does not desire any aggressive treatment, anti coagulation therapy is not recommended. Patient continues with aspirin 81 mg daily. Patient now on metoprolol 12.5 mg twice daily. Blood pressure and rate seems to be better controlled with this. UTI, urine culture positive for E coli-ESBL and Enterococcus: IV antibiotic therapy adjusted yesterday. Patient continues with meropenem 500 mg IV twice daily for total 7 days. Levaquin started for enterococcus. This will be for 7 days as well. Will hold off on PICC line since the patient will require dialysis catheter placement. Case discussed at length with patient and nephrology. Patient will likely remain in the hospital for chronic dialysis to be set up. This will give plenty of time to have his infection covered. Anasarca secondary to acute on chronic systolic CHF and acute on chronic renal disease stage 5: Will continue with IV Lasix. Will continue with fluid restriction. Patient to elevate legs when sitting or lying. 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 Will continue to adjust Lantus for better diabetic control. Will monitor and adjust closely. Hypertension with noted history of pulmonary hypertension: Will continue with low-dose metoprolol 12.5 mg 1 pill twice daily for better control. Right recurrent pleural effusion with recent history of thoracentesis: Will continue with diuresis. Chronic dialysis to be set up Tobacco abuse: Patient may require nicotine patch. Will monitor closely. Anemia likely of chronic disease: Overall stable. Will monitor hemoglobin closely. Subclinical hypothyroidism: Repeat tsh and free T4 reviewed. This remained stable. Recheck thyroid panel in 1 month Hyperkalemia: Patient does not desire Kayexalate. Potassium improved. Will monitor closely. Time Spent Managing Pts Care (In Minutes): 55
[2018-05-04] MEDS ORDERED: CEFAZOLIN/SWI 1gm 1 GM/10 ML SYR IV SCH (10:45)
--- NOTE | 2018-05-04 13:16 | PN ---
Date of Progress Note: 05/04/2018 Subjective: Mr. Shaver had been admitted by Dr. Villaseñor on 04/30/2018. Dr. Valdez has been following him along. He has atrial fibrillation, ejection fraction of 45%. Continues to refuse dialysis despi te end-stage renal disease. He is a DNR. Dr. Tomlin prescribed beta-fitz to slow down his heart r ate with atrial fibrillation. He is not a candidate for anticoagulation secondary to anemia, is not a candidate for antiarrhythmics because of his renal failure. Today, his rate is well controlled. Arthur reed is in the 70s. Has a UTI that has been treated. The plan is to send him home in the near future. We will be happy to see him in followup in the office in the next week or 2. KWAKU/ADAN Voice ID: [id number] Report ID: [id number]
--- NOTE | 2018-05-04 14:16 | RAD REPORT ---
EXAM DESCRIPTION: RAD - Chest Pa And Lat (2 Views) - 05/04/2018 2:09 pm CLINICAL HISTORY: Follow up CHF Chest pain. COMPARISON: Chest Single View dated 05/02/2018; Chest Single View dated 05/01/2018; Chest Single View dated 04/30/2018; Chest Single View dated 04/04/2018 FINDINGS: Moderate right pleural effusion is noted, slightly decreased since comparative study. Line ar atelectasis is present in the right lung base. The left lung appears grossly clear. The heart is m ildly prominent size. No displaced fractures.
--- NOTE | 2018-05-04 20:26 | P.PN ---
Date of Service: 05/03/18 Vital Signs Temp Pulse Resp BP Pulse Ox 97.2 F 94 H 19 133/90 97 05/04/18 16:00 05/04/18 16:00 05/04/18 16:00 05/04/18 16:00 05/04/18 16:00 Medications Acetaminophen (Tylenol -Extra Strength) 500 mg PO Q4HP PRN PRN Reason: [id number] Stop: 05/30/18 17:49 Arformoterol Tartrate (Brovana) 15 mcg NEB BIDRESP [facility] Stop: 05/30/18 20:01 Last Admin: 05/04/18 07:52 Dose: 15 mcg Aspirin (Aspirin Ec) 81 mg PO DAILY IS[facility] Stop: 05/31/18 09:01 Last Admin: 05/04/18 08:43 Dose: 81 mg Furosemide (Lasix) 80 mg IV BIDL IS[facility] Stop: 05/31/18 09:01 Last Admin: 05/04/18 14:19 Dose: 80 mg Meropenem 500 mg/ Sodium (Chloride) 100 mls @ 100 mls/hr IV Q12HR ISH Stop: 06/02/18 09:01 Last Admin: 05/04/18 14:20 Dose: 100 mls Cefazolin Sodium (Ancef 1 Gm/10 Ml Swi Ivp) 1 gm in 10 mls @ 600 mls/hr IV OC ISH; Protocol Stop: 05/05/18 12:00 Insulin Glargine (Lantus) 25 units SQ BEDTIME ISH Stop: 06/02/18 21:01 Last Admin: 05/03/18 20:27 Dose: 25 units Insulin Human Regular (Novolin -R) 0 unit SQ ACHS ISH; Protocol Stop: 05/31/18 07:31 Last Admin: 05/04/18 16:51 Dose: 8 unit Ipratropium [place] (Atrovent Neb) 0.5 mg NEB [id number] PRN PRN Reason: SHORTNESS OF BREATH Stop: 05/30/18 20:01 Last Admin: 05/03/18 19:14 Dose: 0.5 mg Levofloxacin (Levaquin) 250 mg PO Q48H ISH; Protocol Stop: 06/03/18 08:01 Last Admin: 05/04/18 08:43 Dose: 250 mg Metoprolol Tartrate (Lopressor) 12.5 mg PO BID 6AM 6PM ISH Stop: 06/02/18 18:01 Last Admin: 05/04/18 16:50 Dose: 12.5 mg Ondansetron HCl (Zofran) 4 mg IV Q6HP PRN PRN Reason: NAUSEA / VOMITING Stop: 05/30/18 17:49 Pantoprazole Sodium (Protonix Tab) 40 mg PO ACB ISH Stop: 05/31/18 10:01 Last Admin: 05/04/18 08:42 Dose: 40 mg Prednisone (Deltasone) 10 mg PO BID ISH Stop: 06/02/18 21:01 Last Admin: 05/04/18 08:43 Dose: 10 mg Sevelamer Carbonate (Renvela) 800 mg PO TIDWM ISH Stop: 05/31/18 12:01 Last Admin: 05/04/18 16:50 Dose: 800 mg Sodium Chloride (Normal Saline Flush) 10 ml IV BID [facility] Stop: 05/30/18 21:01 Last Admin: 05/04/18 08:44 Dose: 10 ml Microbiology Results 04/30/18 16:45 Blood - Blood Aerobic Blood Culture - Preliminary No growth in 24 hours. 04/30/18 16:45 Blood - Blood Anaerobic Blood Culture - Preliminary No growth in 24 hours. 04/30/18 16:25 Blood - Blood Aerobic Blood Culture - Preliminary No growth in 24 hours. 04/30/18 16:25 Blood - Blood Anaerobic Blood Culture - Preliminary No growth in 24 hours. Assessment/ Plan: Nephrology. Persistent malaise. Poor urine output. CPS stable without CP. +KOO No acute events overnight. Considering hospice vs dialysis. Vitals, medications, blood work and imaging reviewed in the chart. Vitals reviewed in the chart. General: Oriented x3, Cooperative HEENT: Atraumatic, Mucous membr. moist/pink Neck: Supple, JVD distended Respiratory: Clear to auscultation bilaterally, Normal air movement Cardiovascular: Regular rate/rhythm, No rubs, Edema Gastrointestinal: Soft and benign, Non-distended Musculoskeletal: No clubbing, No contractures. Partial foot amputation. Integumentary: No rashes, No cyanosis Neurological: Normal speech Greater than 30 minutes patient care. Laboratory Data (last 24 hrs) 04/30/18 16:25: WBC 9.5, Hgb 10.4 L, Hct 32.6 L, Plt Count 292 04/30/18 16:25: Sodium 139, Potassium 5.3 H, BUN 96 H, Creatinine 5.50 H*, Glucose 240 H, Total Bilirubin 0.8, AST 21, ALT 70, Alkaline Phosphatase 75 Imagings Data: Reason for Exam: DYSPNEA Report Status: Signed EXAM DESCRIPTION: [place] Single View04/30/2018 5:56 pm CLINICAL HISTORY: Chest pain COMPARISON: April 04, 2018 FINDINGS: A moderate right pleural effusion is suspected with right basilar atelectasis. Mild bilateral interstitial pulmonary edema is suspected. The heart remains enlarged Conclusions/Impression: A/ KITA likely CRS. Hyperkalemia. Acidosis. A/C Systolic CHF. CKD V with Proteinuria. DM II with proteinuria. HTN with CKD/ CHF. Anemia in chronic illness. Hypocalcemia. Rapid Afib. P/ Continue current POC and Medications. Case discussed with the patient and his sister at length: Dialysis vs Hospice. Wean prednisone as tolerated. No NSAIDS. Low sodium diet. AM labs. Daily weight. Case discussed with Dr. Villaseñor. Greater then 35 minutes patient care.
--- NOTE | 2018-05-04 20:36 | P.PN ---
Date of Service: 05/04/18 Vital Signs Temp Pulse Resp BP Pulse Ox 97.2 F 94 H 19 133/90 97 05/04/18 16:00 05/04/18 16:00 05/04/18 16:00 05/04/18 16:00 05/04/18 16:00 Medications Acetaminophen (Tylenol -Extra Strength) 500 mg PO Q4HP PRN PRN Reason: [id number] Stop: 05/30/18 17:49 Arformoterol Tartrate (Brovana) 15 mcg NEB BIDRESP ISH Stop: 05/30/18 20:01 Last Admin: 05/04/18 20:23 Dose: 15 mcg Aspirin (Aspirin Ec) 81 mg PO DAILY ISH Stop: 05/31/18 09:01 Last Admin: 05/04/18 08:43 Dose: 81 mg Furosemide (Lasix) 80 mg IV BIDL ISH Stop: 05/31/18 09:01 Last Admin: 05/04/18 14:19 Dose: 80 mg Meropenem 500 mg/ Sodium (Chloride) 100 mls @ 100 mls/hr IV Q12HR ISH Stop: 06/02/18 09:01 Last Admin: 05/04/18 14:20 Dose: 100 mls Cefazolin Sodium (Ancef 1 Gm/10 Ml Swi Ivp) 1 gm in 10 mls @ 600 mls/hr IV OC ISH; Protocol Stop: 05/05/18 12:00 Insulin Glargine (Lantus) 25 units SQ BEDTIME ISH Stop: 06/02/18 21:01 Last Admin: 05/03/18 20:27 Dose: 25 units Insulin Human Regular (Novolin -R) 0 unit SQ ACHS ISH; Protocol Stop: 05/31/18 07:31 Last Admin: 05/04/18 16:51 Dose: 8 unit Ipratropium [place] (Atrovent Neb) 0.5 mg NEB [id number] PRN PRN Reason: SHORTNESS OF BREATH Stop: 05/30/18 20:01 Last Admin: 05/03/18 19:14 Dose: 0.5 mg Levofloxacin (Levaquin) 250 mg PO Q48H ISH; Protocol Stop: 06/03/18 08:01 Last Admin: 05/04/18 08:43 Dose: 250 mg Metoprolol Tartrate (Lopressor) 12.5 mg PO BID 6AM 6PM ISH Stop: 06/02/18 18:01 Last Admin: 05/04/18 16:50 Dose: 12.5 mg Ondansetron HCl (Zofran) 4 mg IV Q6HP PRN PRN Reason: NAUSEA / VOMITING Stop: 05/30/18 17:49 Pantoprazole Sodium (Protonix Tab) 40 mg PO ACB ISH Stop: 05/31/18 10:01 Last Admin: 05/04/18 08:42 Dose: 40 mg Prednisone (Deltasone) 10 mg PO BID ISH Stop: 06/02/18 21:01 Last Admin: 05/04/18 08:43 Dose: 10 mg Sevelamer Carbonate (Renvela) 800 mg PO TIDWM [facility] Stop: 05/31/18 12:01 Last Admin: 05/04/18 16:50 Dose: 800 mg Sodium Chloride (Normal Saline Flush) 10 ml IV BID [facility] Stop: 05/30/18 21:01 Last Admin: 05/04/18 08:44 Dose: 10 ml Microbiology Results 04/30/18 16:45 Blood - Blood Aerobic Blood Culture - Preliminary No growth in 24 hours. 04/30/18 16:45 Blood - Blood Anaerobic Blood Culture - Preliminary No growth in 24 hours. 04/30/18 16:25 Blood - Blood Aerobic Blood Culture - Preliminary No growth in 24 hours. 04/30/18 16:25 Blood - Blood Anaerobic Blood Culture - Preliminary No growth in 24 hours. Assessment/ Plan: Nephrology. Feeling better. Poor urine output. CPS stable without CP. +KOO No acute events overnight. Insists that he must go vote today. Vitals, medications, blood work and imaging reviewed in the chart. Vitals reviewed in the chart. General: Oriented x3, Cooperative HEENT: Atraumatic, Mucous membr. moist/pink Neck: Supple, JVD distended Respiratory: Clear to auscultation bilaterally, Normal air movement Cardiovascular: Regular rate/rhythm, No rubs, Edema Gastrointestinal: Soft and benign, Non-distended Musculoskeletal: No clubbing, No contractures. Partial foot amputation. Integumentary: No rashes, No cyanosis Neurological: Normal speech Greater than 30 minutes patient care. Laboratory Data (last 24 hrs) 04/30/18 16:25: WBC 9.5, Hgb 10.4 L, Hct 32.6 L, Plt Count 292 04/30/18 16:25: Sodium 139, Potassium 5.3 H, BUN 96 H, Creatinine 5.50 H*, Glucose 240 H, Total Bilirubin 0.8, AST 21, ALT 70, Alkaline Phosphatase 75 Imagings Data: Reason for Exam: DYSPNEA Report Status: Signed EXAM DESCRIPTION: [place] Single View04/30/2018 5:56 pm CLINICAL HISTORY: Chest pain COMPARISON: April 04, 2018 FINDINGS: A moderate right pleural effusion is suspected with right basilar atelectasis. Mild bilateral interstitial pulmonary edema is suspected. The heart remains enlarged Conclusions/Impression: A/ KITA likely CRS. Hyperkalemia. Acidosis. A/C Systolic CHF. CKD V with Proteinuria. DM II with proteinuria. HTN with CKD/ CHF. Anemia in chronic illness. Hypocalcemia. Rapid Afib. P/ Continue current POC and Medications. Wean prednisone as tolerated. No NSAIDS. Low sodium diet. AM labs. Daily weight. Case discussed with Dr. Villaseñor. Plan for HD catheter tomorrow and dialysis initiation.
[2018-05-04] MEDS: INSULIN GLARGINE 100 UNITS/ML SQ SCH (21:39)
[2018-05-05 05:46] LABS: Absolute Monocytes 0.7 K/uL (0.1-1.3); Absolute Neutrophil 10.9 K/uL (1.8-8.0); Basophils % 0.4 % (0-1.3); Eosinophils % 0.4 % (0-4.4); Hematocrit 31.4 % (39.6-49.0); MCH 30.5 pg (27.0-35.0); MCV 94.8 fL (80-100); MPV 10.2 fL (7.6-11.3); Monocytes % 5.3 % (3.3-12.3); RBC Red Blood Cell Count 3.31 M/uL (4.33-5.43)
[2018-05-05 06:09] LABS: Bilirubin Total 0.4 mg/dL (0.2-1.0); Magnesium 2.6 mg/dL (1.8-2.4); Potassium 5.5 mmol/L (3.5-5.1); Protein, Total 6.9 g/dL (6.4-8.2)
[2018-05-05] MEDS: METOPROLOL TAR 25 MG TAB PO SCH ×2 (07:22→17:39)
[2018-05-05] MEDS: INSULIN -REGULAR HUMAN 50 UNIT/0.5 ML ML SQ SCH ×4 (07:30→21:43)
[2018-05-05] MEDS: ARFORMOTEROL TARTRATE 15 MCG/2 ML VIAL.NEB NEB SCH ×2 (07:56→19:30)
[2018-05-05] MEDS ORDERED: MANNITOL 25% 12.5 GM/50 ML VIAL IV PRN (08:18)
[2018-05-05] MEDS ORDERED: NA CHLORIDE 0.9% 1,000 ML IV PRN (08:18)
[2018-05-05] MEDS ORDERED: NA CHLORIDE 0.9% 500 ML ONE (08:53)
[2018-05-05] MEDS ORDERED: CEFAZOLIN/SWI 1gm 1 GM/10 ML SYR ONE (08:53)
[2018-05-05] MEDS ORDERED: ALBUMIN HUMAN 25% 50 ML IV SCH (09:00)
[2018-05-05] MEDS ORDERED: METOPROLOL TARTRATE 5 MG/5 ML INJ IV ONE (09:02)
[2018-05-05] MEDS ORDERED: FENTANYL CITR 100 MCG/2 ML ONE (09:20)
[2018-05-05] MEDS ORDERED: PROPOFOL 200 MG/20 ML VIAL IV ONE (09:20)
[2018-05-05] MEDS ORDERED: LIDOCAINE 1% MPF 2 ML AMPULE ONE (09:21)
[2018-05-05] MEDS ORDERED: LIDOCAINE 1% MPF 30 ML VIAL ONE (09:27)
[2018-05-05] MEDS ORDERED: NA CHLORIDE 0.9% 100 ML IV ONE (09:27)
[2018-05-05] MEDS ORDERED: NS 0.9% VIAL 10 ML ONE (09:40)
[2018-05-05] MEDS: HEPARIN 5000 UNIT/ML 1 ML VIAL ONE ×2 (10:01→10:02)
--- NOTE | 2018-05-05 10:10 | P.OP ---
Preoperative diagnosis: ARF Postoperative diagnosis: same Primary procedure: JENNIFER Navarro, Fluoroscopy Anesthesia: MAC Estimated blood loss: min Specimen: none Findings: as above Complications: None Transferred to: Recovery Room Condition: Good
--- NOTE | 2018-05-05 10:20 | P.PN ---
Subjective Date of Service: 05/05/18 Primary Care Provider: Dr. Jones; Nephrology-Dr. Eagle; Card-Dr. Ghotra; Pulm-Dr. Yoder Chief Complaint: Anasarca, shortness of breath Subjective: Doing well (Patient NPO for dialysis catheter placement) Physical Examination - Vital Signs Temperature: 96.9 F Blood Pressure: 107/79 Pulse: 112 Respirations: 18 Pulse Ox (%): 93 - Physical Exam General: Alert, In no apparent distress, Cooperative HEENT: Atraumatic Neck: Supple Respiratory: Diminished (Diminished to the right side but improved) Cardiovascular: Irregular heart rate/rhythm (AFib rate slightly elevated) Gastrointestinal: Normal bowel sounds, Soft and benign, Non-distended, No tenderness, No masses, No rebound, No guarding Musculoskeletal: No tenderness, No warmth Integumentary: No erythema, No warmth, No cyanosis, Tenderness/swelling (Edema to lower extremities stable) Neurological: Normal speech, Normal strength at 5/5 x4 extr, Normal tone, Normal affect - Studies Medications List Reviewed: Yes Assessment & Plan Discharge Plan: Home Plan to discharge in: Greater than 2 days Physician Review Additional Text: Impression: Acute respiratory failure secondary to acute on chronic systolic CHF and COPD exacerbation complicated with acute on chronic renal disease stage 5 Atrial fibrillation not on chronic anti coagulation therapy due to poor compliance, rate elevated Anasarca secondary to acute on chronic systolic CHF and acute on chronic renal disease stage 5 UTI, urine culture positive for E coli-ESBL Diabetes mellitus type 2, insulin-dependent, 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 Patient refuses Kayexalate. Patient NPO for dialysis catheter placement today. Patient expected to start dialysis today. Hepatitis panel sent out to establish for chronic dialysis. Case discussed at length with nephrology yesterday. Case discussed with surgery yesterday. Anticipate patient remaining in the hospital over the next week to establish chronic dialysis as an outpatient. Will continue with IV antibiotic therapy for UTI. Atrial fibrillation not on chronic anti coagulation therapy due to poor compliance, rate elevated: Since the patient does not desire any aggressive treatment, anti coagulation therapy is not recommended. Patient continues with aspirin 81 mg daily. Patient now on metoprolol 12.5 mg twice daily. Blood pressure and rate seems to be better controlled with this. UTI, urine culture positive for E coli-ESBL and Enterococcus: Continue with IV antibiotic therapy meropenem 500 mg IV twice daily for total 7 days. Levaquin also started for enterococcus. This will be for 7 days as well. Will hold off on PICC line since the patient will get dialysis catheter placement for initiation of chronic dialysis Anasarca secondary to acute on chronic systolic CHF and acute on chronic renal disease stage 5: Will continue with IV Lasix. Will continue with fluid restriction. Patient to elevate legs when sitting or lying. 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 Will continue to adjust Lantus for better diabetic control. Will monitor and adjust closely. Hypertension with noted history of pulmonary hypertension: Will continue with low-dose metoprolol 12.5 mg 1 pill twice daily for better control. Right recurrent pleural effusion with recent history of thoracentesis: Will continue with diuresis. Chronic dialysis to be set up Tobacco abuse: Patient may require nicotine patch. Will monitor closely. Anemia likely of chronic disease: Overall stable. Will monitor hemoglobin closely. Subclinical hypothyroidism: Repeat tsh and free T4 reviewed. This remained stable. Recheck thyroid panel in 1 month Hyperkalemia: Patient does not desire Kayexalate. Potassium improved. Will monitor closely. Time Spent Managing Pts Care (In Minutes): 55
--- NOTE | 2018-05-05 10:52 | RAD REPORT ---
EXAM DESCRIPTION: RAD - Chest Single View - 05/05/2018 10:43 am CLINICAL HISTORY: Tessio catheter placement COMPARISON: May 04, 2018 TECHNIQUE: AP portable chest image was obtained 1025 hour . FINDINGS: Portal chest was obtained following right Tessio catheter placement. Catheter is in good p osition in the mid to distal SVC. There is no pneumothorax. Enlarged cardiac silhouette has not changed. The pleural and parenchymal opacification in the right b ase also unchanged. Trachea is midline. Delete select IMPRESSION: Right-side Tessio catheter placement in good position. No pneumothorax.
--- NOTE | 2018-05-05 10:52 | RAD REPORT ---
EXAM DESCRIPTION: RAD - Fluoroscopy <1 Hour - 05/05/2018 10:45 am FINDINGS: Two portable C-arm views were obtained during fluoroscopic assisted placement of a Tessio catheter. No suspicious or unexpected finding. Fluoro time was 4.4 seconds.
[2018-05-05] MEDS: predniSONE 10 MG TAB PO SCH ×2 (11:11→21:44)
[2018-05-05] MEDS: ASPIRIN EC 81 MG TAB PO SCH (11:11)
[2018-05-05] MEDS: SEVELAMER CARBONATE 800 MG TABLET PO SCH ×3 (11:11→17:39)
[2018-05-05] MEDS: FUROSEMIDE 40 MG/4 ML VIAL IV SCH ×2 (11:12→17:37)
[2018-05-05] MEDS: Meropenem 500 MG in NA CHLORIDE 0.9% 100 ML IV SCH ×2 (11:12→21:43)
[2018-05-05] MEDS: PANTOPRAZOLE 40MG TABLET PO SCH (11:12)
--- NOTE | 2018-05-05 12:56 | OP ---
Date of Procedure: 05/05/2018 Surgeon: Jhon Valenzuela MD Preoperative Diagnosis: Acute renal failure. Postoperative Diagnosis: Acute renal failure. Procedure: Placement of right internal jugular Tesio catheter and interpretation of intraoperative f luoroscopy. Estimated Blood Loss: Minimal. Specimen: None. Findings: Normal anatomy. Anesthesia: MAC. Complications: None. Disposition: The patient tolerated the procedure in stable condition and taken to Recovery in good g eneral condition. Procedure In Detail: The patient was brought to the OR and placed in the supine position. General a nesthesia was begun. The patient was prepped and draped in usual sterile fashion. Lidocaine 1% infi ltrated locally. An 18-gauge used to access the right IJ vein. Guidewire was passed. Position was confirmed with fluoroscopy. Counterincision on the right chest made. Tunneling device was used to t unnel the catheter between the 2 wounds. Seldinger technique used. Vein dilated and the tip of the catheter placed in the SVC under fluoroscopy. Catheter was flushed with heparin and packed with hepa rin with good blood flow. Subsequently 3-0 chromic used to approximate the subcutaneous tissue and c lose the skin and 3-0 nylon was used to secure the tube to the chest wall. Sterile dressing was applied. The patient was awakened and taken to Recovery in good general condition, and a chest x-ray has been ordered. SWATI/ADAN Voice ID: [id number] Report ID: [id number]
--- NOTE | 2018-05-05 13:41 | CON ---
Date of Consultation: 05/04/2018 Reason For Consultation: The patient needs dialysis. History Of Present Illness: The patient is a 62-year-old gentleman, who came in with anasarca and sh ortness of breath and was found to have acute renal failure, not improving with medical management, t herefore the patient requires dialysis, and I was asked to put a Tesio catheter. The patient is awak e and alert. No fever or chills. No sore throat, runny nose, cough, headaches, or dizziness. No ch est pain at this time. Review of Systems: Otherwise unremarkable. Past Medical History: Significant for COPD, type 2 diabetes, hypertension, acute renal failure, syst olic congestive heart failure, AFib, obesity. Past Surgical History: Right foot amputation, partial appendectomy, dental surgery. Allergies: PENICILLIN. Subjective: The patient does smoke, has been counseled. Does not drink. Physical Examination: Vital Signs: Stable. He is tachycardic, afebrile. General: Awake, alert. Head and Neck: No masses. Chest: Clear. Heart: S1 and S2. Abdomen: Soft. Extremities: Neurovascularly intact. Neuro: Nonfocal. Laboratory Data: H and H 10.1 and 31.4, white count is slightly elevated, slight left shift. BUN is 137, creatinine 6.7, potassium 5.5. Assessment: A 62-year-old gentleman with acute renal failure, requiring dialysis. Recommendations: We will go ahead and place the catheter for dialysis. The patient understands the risks, benefits, and alternatives, and agrees to procedure. /MODL Voice ID: [id number] Report ID: [id number]
[2018-05-05] MEDS: INSULIN GLARGINE 100 UNITS/ML SQ SCH (21:42)
--- NOTE | 2018-05-05 22:31 | P.PN ---
Date of Service: 05/05/18 Vital Signs Temp Pulse Resp BP Pulse Ox 96.9 F 136 H 18 129/76 97 05/05/18 20:00 05/05/18 20:00 05/05/18 20:00 05/05/18 20:00 05/05/18 20:00 Medications Acetaminophen (Tylenol -Extra Strength) 500 mg PO Q4HP PRN PRN Reason: [id number] Stop: 05/30/18 17:49 Arformoterol Tartrate (Brovana) 15 mcg NEB BIDRESP [facility] Stop: 05/30/18 20:01 Last Admin: 05/05/18 19:30 Dose: 15 mcg Aspirin (Aspirin Ec) 81 mg PO DAILY ISH Stop: 05/31/18 09:01 Last Admin: 05/05/18 11:11 Dose: 81 mg Epoetin [place] (Procrit) 10,000 unit IV EVERY HD [facility] Stop: 06/04/18 08:31 Furosemide (Lasix) 80 mg IV BIDL ISH Stop: 05/31/18 09:01 Last Admin: 05/05/18 17:37 Dose: 80 mg Heparin Sodium (Porcine) (Heparin 1,000 Units/Ml) 6,000 unit IV EVERY HD PRN PRN Reason: FLUSH AFTER EACH USE Stop: 06/04/18 08:19 Meropenem 500 mg/ Sodium (Chloride) 100 mls @ 100 mls/hr IV Q12HR IS[facility] Stop: 06/02/18 09:01 Last Admin: 05/05/18 21:43 Dose: 100 mls Albumin Human (Albumin 25%) 50 mls @ 100 mls/hr IV EVERY HD ISH Stop: 06/04/18 09:01 Sodium Chloride (Ns 1000 Ml Ivbag) 1,000 mls @ 0 mls/hr IV .Q0M PRN PRN Reason: Priming and BP support at HD Stop: 05/05/18 23:59 Insulin Glargine (Lantus) 25 units SQ BEDTIME IS[facility] Stop: 06/02/18 21:01 Last Admin: 05/05/18 21:42 Dose: 25 units Insulin Human Regular (Novolin -R) 0 unit SQ ACHS ISH; Protocol Stop: 05/31/18 07:31 Last Admin: 05/05/18 21:43 Dose: 4 unit Ipratropium [place] (Atrovent Neb) 0.5 mg NEB [id number] PRN PRN Reason: SHORTNESS OF BREATH Stop: 05/30/18 20:01 Last Admin: 05/03/18 19:14 Dose: 0.5 mg Mannitol (Mannitol 12.5 Gm/50 Ml Vial) 12.5 gm IV EVERY HD PRN PRN Reason: BP support at hemodialysis Stop: 06/04/18 08:19 Metoprolol Tartrate (Lopressor) 12.5 mg PO BID 6AM 6PM IS[facility] Stop: 06/02/18 18:01 Last Admin: 05/05/18 17:39 Dose: Not Given Ondansetron HCl (Zofran) 4 mg IV Q6HP PRN PRN Reason: NAUSEA / VOMITING Stop: 05/30/18 17:49 Pantoprazole Sodium (Protonix Tab) 40 mg PO ACB IS[facility] Stop: 05/31/18 10:01 Last Admin: 05/05/18 11:12 Dose: 40 mg Prednisone (Deltasone) 10 mg PO BID ISH Stop: 06/02/18 21:01 Last Admin: 05/05/18 21:44 Dose: 10 mg Sevelamer Carbonate (Renvela) 800 mg PO TIDWM [facility] Stop: 05/31/18 12:01 Last Admin: 05/05/18 17:39 Dose: 800 mg Sodium Chloride (Normal Saline Flush) 10 ml IV BID ISH Stop: 05/30/18 21:01 Last Admin: 05/05/18 21:44 Dose: 10 ml Microbiology Results 04/30/18 16:45 Blood - Blood Aerobic Blood Culture - Final No growth in 5 days. 04/30/18 16:45 Blood - Blood Anaerobic Blood Culture - Final No growth in 5 days. 04/30/18 16:25 Blood - Blood Aerobic Blood Culture - Final No growth in 5 days. 04/30/18 16:25 Blood - Blood Anaerobic Blood Culture - Final No growth in 5 days. Assessment/ Plan: Nephrology. CPS stable without CP. +KOO No acute events overnight. Ready for his catheter today. Vitals, medications, blood work and imaging reviewed in the chart. Vitals reviewed in the chart. General: Oriented x3, Cooperative HEENT: Atraumatic, Mucous membr. moist/pink Neck: Supple, JVD distended Respiratory: Clear to auscultation bilaterally, Normal air movement Cardiovascular: Regular rate/rhythm, No rubs, Edema Gastrointestinal: Soft and benign, Non-distended Musculoskeletal: No clubbing, No contractures. Partial foot amputation. Integumentary: No rashes, No cyanosis Neurological: Normal speech Greater than 30 minutes patient care. Laboratory Data (last 24 hrs) 04/30/18 16:25: WBC 9.5, Hgb 10.4 L, Hct 32.6 L, Plt Count 292 04/30/18 16:25: Sodium 139, Potassium 5.3 H, BUN 96 H, Creatinine 5.50 H*, Glucose 240 H, Total Bilirubin 0.8, AST 21, ALT 70, Alkaline Phosphatase 75 Imagings Data: Reason for Exam: DYSPNEA Report Status: Signed EXAM DESCRIPTION: [place] Single View04/30/2018 5:56 pm CLINICAL HISTORY: Chest pain COMPARISON: April 04, 2018 FINDINGS: A moderate right pleural effusion is suspected with right basilar atelectasis. Mild bilateral interstitial pulmonary edema is suspected. The heart remains enlarged Conclusions/Impression: A/ ESRD. HD initiated 11060706. CKD V with proteinuria. Hyperkalemia. Acidosis. A/C Systolic CHF. DM II with proteinuria. HTN with CKD/ CHF. Anemia in chronic illness. Hypocalcemia. Rapid Afib. P/ Continue current POC and Medications. HD CVC placement today followed by HD. Wean prednisone as tolerated. No NSAIDS. Low sodium diet. AM labs. Daily weight. Arrange for dialysis placement.
[2018-05-06 03:30] LABS: HBsAG Nonreactive (Nonreactive); Hepatitis A IgM Antibody Nonreactive
[2018-05-06] MEDS: METOPROLOL TAR 25 MG TAB PO SCH ×2 (05:51→17:38)
[2018-05-06 06:02] LABS: Absolute Lymphocytes (CBC) 1.5 K/uL (0.7-4.9); Absolute Monocytes 0.7 K/uL (0.1-1.3); Absolute Neutrophil 8.9 K/uL (1.8-8.0); Basophils % 0.2 % (0-1.3); Eosinophils % 0.6 % (0-4.4); Hematocrit 31.9 % (39.6-49.0); Lymphocytes % 13.1 % (15.3-44.8); MCH 30.6 pg (27.0-35.0); MCV 95.4 fL (80-100); MPV 10.5 fL (7.6-11.3); Monocytes % 6.1 % (3.3-12.3); RBC Red Blood Cell Count 3.34 M/uL (4.33-5.43)
[2018-05-06 06:23] LABS: Phosphorus 8.1 mg/dL (2.5-4.9); Potassium 5.1 mmol/L (3.5-5.1)
[2018-05-06] MEDS: INSULIN -REGULAR HUMAN 50 UNIT/0.5 ML ML SQ SCH ×4 (07:30→22:10)
[2018-05-06] MEDS: ARFORMOTEROL TARTRATE 15 MCG/2 ML VIAL.NEB NEB SCH ×2 (07:45→20:38)
[2018-05-06] MEDS: FUROSEMIDE 40 MG/4 ML VIAL IV SCH ×2 (09:11→17:37)
[2018-05-06] MEDS: predniSONE 10 MG TAB PO SCH ×2 (09:12→22:08)
[2018-05-06] MEDS: ASPIRIN EC 81 MG TAB PO SCH (09:12)
[2018-05-06] MEDS: SEVELAMER CARBONATE 800 MG TABLET PO SCH ×3 (09:13→17:37)
[2018-05-06] MEDS: Meropenem 500 MG in NA CHLORIDE 0.9% 100 ML IV SCH ×2 (09:13→22:09)
[2018-05-06] MEDS: PANTOPRAZOLE 40MG TABLET PO SCH (09:16)
[2018-05-06] MEDS: EPOETIN ALFA 10,000 UNIT/ML VIAL IV SCH (12:30)
--- NOTE | 2018-05-06 13:46 | P.PN ---
Subjective Date of Service: 05/06/18 Primary Care Provider: Dr. Jones; Nephrology-Dr. Eagle; Card-Dr. Ghotra; Pulm-Dr. Yoder Chief Complaint: Anasarca, shortness of breath Subjective: Doing well Physical Examination - Vital Signs Temperature: 97 F Blood Pressure: 120/79 Pulse: 130 Respirations: 20 Pulse Ox (%): 98 - Physical Exam General: Alert, In no apparent distress, Oriented x3, Cooperative HEENT: Atraumatic Neck: Supple Respiratory: Diminished (To the right side) Cardiovascular: Irregular heart rate/rhythm (Atrial fibrillation rate around 120 -130) Gastrointestinal: Normal bowel sounds, Non-distended, No tenderness, No masses, No rebound, No guarding Musculoskeletal: No erythema, No tenderness, No warmth Integumentary: Tenderness/swelling (Edema to the lower extremities unchanged) Neurological: Normal speech, Normal strength at 5/5 x4 extr, Normal tone - Studies Microbiology Data (last 24 hrs): 04/30/18 16:45 Blood - Blood Aerobic Blood Culture - Final No growth in 5 days. 04/30/18 16:45 Blood - Blood Anaerobic Blood Culture - Final No growth in 5 days. 04/30/18 16:25 Blood - Blood Aerobic Blood Culture - Final No growth in 5 days. 04/30/18 16:25 Blood - Blood Anaerobic Blood Culture - Final No growth in 5 days. Medications List Reviewed: Yes Assessment & Plan Discharge Plan: Home Plan to discharge in: Greater than 2 days Physician Review Additional Text: Impression: Acute respiratory failure secondary to acute on chronic systolic CHF and COPD exacerbation complicated with acute on chronic renal disease stage 5 Atrial fibrillation not on chronic anti coagulation therapy due to poor compliance, rate elevated Anasarca secondary to acute on chronic systolic CHF and acute on chronic renal disease stage 5 UTI, urine culture positive for E coli-ESBL Diabetes mellitus type 2, insulin-dependent, 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 Patient started on dialysis yesterday after catheter placement. Patient tolerating dialysis. Potassium level improved. Hepatitis panel sent out to establish for chronic dialysis. Anticipate patient remaining in the hospital over the next week to establish chronic dialysis as an outpatient. Will continue with IV antibiotic therapy for UTI. Atrial fibrillation not on chronic anti coagulation therapy due to poor compliance, rate elevated: Since the patient does not desire any aggressive treatment, anti coagulation therapy is not recommended. Patient continues with aspirin 81 mg daily. Will increase metoprolol to 25 mg twice daily for better rate control. Blood pressure and rate seems to be better controlled with this. UTI, urine culture positive for E coli-ESBL and Enterococcus: Continue with IV antibiotic therapy meropenem 500 mg IV twice daily for total 7 days. End date next Thursday. Will hold off on PICC line since the patient has dialysis catheter Anasarca secondary to acute on chronic systolic CHF and acute on chronic renal disease stage 5: Will continue with IV Lasix. Patient started on dialysis. Will continue with fluid restriction. Patient to elevate legs when sitting or lying. 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 Will continue to adjust Lantus for better diabetic control. Will monitor and adjust closely. Hypertension with noted history of pulmonary hypertension: Will increase metoprolol to 25 mg twice daily. Right recurrent pleural effusion with recent history of thoracentesis: Will continue with diuresis. Chronic dialysis to be set up Tobacco abuse: Patient may require nicotine patch. Will monitor closely. Anemia likely of chronic disease: Overall stable. Will monitor hemoglobin closely. Subclinical hypothyroidism: Repeat tsh and free T4 reviewed. This remained stable. Recheck thyroid panel in 1 month Hyperkalemia: This appears resolved with dialysis Time Spent Managing Pts Care (In Minutes): 55
--- NOTE | 2018-05-06 15:08 | P.PN ---
Date of Service: 05/06/18 Vital Signs Temp Pulse Resp BP Pulse Ox 97 F 130 H 20 120/79 98 05/06/18 13:46 05/06/18 13:46 05/06/18 13:46 05/06/18 13:46 05/06/18 13:46 Medications Acetaminophen (Tylenol -Extra Strength) 500 mg PO Q4HP PRN PRN Reason: [id number] Stop: 05/30/18 17:49 Arformoterol Tartrate (Brovana) 15 mcg NEB BIDRESP ISH Stop: 05/30/18 20:01 Last Admin: 05/06/18 07:45 Dose: 15 mcg Aspirin (Aspirin Ec) 81 mg PO DAILY ISH Stop: 05/31/18 09:01 Last Admin: 05/06/18 09:12 Dose: 81 mg Calcitriol (Rocaltrol) 0.5 mcg PO DAILY ISH Stop: 06/06/18 09:01 Cholecalciferol (Vitamin D 5,000 Iu Cap) 5,000 unit PO DAILY ISH Stop: 06/06/18 09:01 Epoetin [place] (Procrit) 10,000 unit IV EVERY HD ISH Stop: 06/04/18 08:31 Last Admin: 05/06/18 12:30 Dose: 10,000 unit Furosemide (Lasix) 80 mg IV BIDL ISH Stop: 05/31/18 09:01 Last Admin: 05/06/18 09:11 Dose: 80 mg Heparin Sodium (Porcine) (Heparin 1,000 Units/Ml) 6,000 unit IV EVERY HD PRN PRN Reason: FLUSH AFTER EACH USE Stop: 06/04/18 08:19 Last Admin: 05/06/18 13:00 Dose: 6,000 unit Heparin Sodium (Porcine) (Heparin 1,000 Units/Ml) 2,000 unit IV EVERY HD ISH Stop: 05/10/18 09:01 Last Admin: 05/06/18 09:45 Dose: 2,000 unit Meropenem 500 mg/ Sodium (Chloride) 100 mls @ 100 mls/hr IV Q12HR ISH Stop: 06/02/18 09:01 Last Admin: 05/06/18 09:13 Dose: 100 mls Albumin Human (Albumin 25%) 50 mls @ 100 mls/hr IV EVERY HD ISH Stop: 12/07/18 09:01 Insulin Glargine (Lantus) 25 units SQ BEDTIME [facility] Stop: 06/02/18 21:01 Last Admin: 05/05/18 21:42 Dose: 25 units Insulin Human Regular (Novolin -R) 0 unit SQ ACHS [facility]; Protocol Stop: 05/31/18 07:31 Last Admin: 05/06/18 07:30 Dose: Not Given Ipratropium [place] (Atrovent Neb) 0.5 mg NEB [id number] PRN PRN Reason: SHORTNESS OF BREATH Stop: 05/30/18 20:01 Last Admin: 05/03/18 19:14 Dose: 0.5 mg Mannitol (Mannitol 12.5 Gm/50 Ml Vial) 12.5 gm IV EVERY HD PRN PRN Reason: BP support at hemodialysis Stop: 06/04/18 08:19 Metoprolol Tartrate (Lopressor) 25 mg PO BID 6AM 6PM [facility] Stop: 06/05/18 18:01 Ondansetron HCl (Zofran) 4 mg IV Q6HP PRN PRN Reason: NAUSEA / VOMITING Stop: 05/30/18 17:49 Pantoprazole Sodium (Protonix Tab) 40 mg PO ACB [facility] Stop: 05/31/18 10:01 Last Admin: 05/06/18 09:16 Dose: 40 mg Prednisone (Deltasone) 10 mg PO BID [facility] Stop: 06/02/18 21:01 Last Admin: 05/06/18 09:12 Dose: 10 mg Sevelamer Carbonate (Renvela) 1,600 mg PO TIDWM [facility] Stop: 06/05/18 17:01 Sodium Chloride (Normal Saline Flush) 10 ml IV BID [facility] Stop: 05/30/18 21:01 Last Admin: 05/06/18 09:13 Dose: 10 ml Microbiology Results 04/30/18 16:45 Blood - Blood Aerobic Blood Culture - Final No growth in 5 days. 04/30/18 16:45 Blood - Blood Anaerobic Blood Culture - Final No growth in 5 days. 04/30/18 16:25 Blood - Blood Aerobic Blood Culture - Final No growth in 5 days. 04/30/18 16:25 Blood - Blood Anaerobic Blood Culture - Final No growth in 5 days. Assessment/ Plan: Nephrology. Feeling better. Second HD today. CPS stable without CP. +KOO No acute events overnight. Vitals, medications, blood work and imaging reviewed in the chart. Vitals reviewed in the chart. General: Oriented x3, Cooperative HEENT: Atraumatic, Mucous membr. moist/pink Neck: Supple, JVD distended Respiratory: Clear to auscultation bilaterally, Normal air movement Cardiovascular: Regular rate/rhythm, No rubs, Edema Gastrointestinal: Soft and benign, Non-distended Musculoskeletal: No clubbing, No contractures. Partial foot amputation. Integumentary: No rashes, No cyanosis Neurological: Normal speech Greater than 30 minutes patient care. Laboratory Data (last 24 hrs) 04/30/18 16:25: WBC 9.5, Hgb 10.4 L, Hct 32.6 L, Plt Count 292 04/30/18 16:25: Sodium 139, Potassium 5.3 H, BUN 96 H, Creatinine 5.50 H*, Glucose 240 H, Total Bilirubin 0.8, AST 21, ALT 70, Alkaline Phosphatase 75 Imagings Data: Reason for Exam: DYSPNEA Report Status: Signed EXAM DESCRIPTION: [place] Single View04/30/2018 5:56 pm CLINICAL HISTORY: Chest pain COMPARISON: April 04, 2018 FINDINGS: A moderate right pleural effusion is suspected with right basilar atelectasis. Mild bilateral interstitial pulmonary edema is suspected. The heart remains enlarged Conclusions/Impression: A/ ESRD. HD initiated 11060706. CKD V with proteinuria. Hyperkalemia. Acidosis. A/C Systolic CHF. DM II with proteinuria. HTN with CKD/ CHF. Anemia in chronic illness. Hypocalcemia. Rapid Afib. P/ Continue current POC and Medications. HD today as ordered. Increase Renvela. Start Vitamin D. Wean prednisone as tolerated. No NSAIDS. Low sodium diet. AM labs. Daily weight. Arrange for dialysis placement.
[2018-05-06] MEDS: INSULIN GLARGINE 100 UNITS/ML SQ SCH (22:09)
[2018-05-07] MEDS: METOPROLOL TAR 25 MG TAB PO SCH ×2 (05:54→18:46)
[2018-05-07 06:08] LABS: Potassium 4.7 mmol/L (3.5-5.1)
[2018-05-07] MEDS: INSULIN -REGULAR HUMAN 50 UNIT/0.5 ML ML SQ SCH ×4 (07:30→21:00)
[2018-05-07] MEDS: ARFORMOTEROL TARTRATE 15 MCG/2 ML VIAL.NEB NEB SCH ×2 (08:17→19:56)
[2018-05-07] MEDS: SEVELAMER CARBONATE 800 MG TABLET PO SCH ×3 (10:03→17:31)
[2018-05-07] MEDS: CALCITROL 0.25 MCG CAP PO SCH (10:03)
[2018-05-07] MEDS: VITAMIN D 5,000 UNIT CAP PO SCH (10:03)
[2018-05-07] MEDS: PANTOPRAZOLE 40MG TABLET PO SCH (10:04)
[2018-05-07] MEDS: ASPIRIN EC 81 MG TAB PO SCH (10:04)
[2018-05-07] MEDS: predniSONE 10 MG TAB PO SCH ×2 (10:04→22:05)
[2018-05-07] MEDS: Meropenem 500 MG in NA CHLORIDE 0.9% 100 ML IV SCH ×2 (10:24→22:05)
[2018-05-07] MEDS: FUROSEMIDE 40 MG/4 ML VIAL IV SCH ×2 (10:39→17:00)
--- NOTE | 2018-05-07 11:00 | P.PN ---
Subjective Date of Service: 05/07/18 Primary Care Provider: Dr. Jones; Nephrology-Dr. Eagle; Card-Dr. Ghotra; Pulm-Dr. Yoder Chief Complaint: Anasarca, shortness of breath Subjective: Doing well Physical Examination - Vital Signs Temperature: 97.3 F Blood Pressure: 110/70 Pulse: 101 Respirations: 17 Pulse Ox (%): 98 - Physical Exam General: Alert, In no apparent distress, Oriented x3, Cooperative HEENT: Atraumatic Neck: Supple Respiratory: Diminished (The right side) Cardiovascular: Irregular heart rate/rhythm (Atrial fibrillation rate better controlled) Gastrointestinal: Normal bowel sounds, Soft and benign, Non-distended, No tenderness, No masses, No rebound, No guarding Musculoskeletal: No erythema, No tenderness, No warmth Integumentary: Tenderness/swelling (Mild improvement to lower extremity edema) Neurological: Normal speech, Normal strength at 5/5 x4 extr, Normal tone, Normal affect - Studies Medications List Reviewed: Yes Assessment & Plan Discharge Plan: Home Plan to discharge in: 72 Hours Physician Review Additional Text: Impression: Acute respiratory failure secondary to acute on chronic systolic CHF and COPD exacerbation complicated with acute on chronic renal disease stage 5 Atrial fibrillation not on chronic anti coagulation therapy due to poor compliance, rate elevated Anasarca secondary to acute on chronic systolic CHF and acute on chronic renal disease stage 5 UTI, urine culture positive for E coli-ESBL Diabetes mellitus type 2, insulin-dependent, not controlled Hypertension with noted history of pulmonary hypertension with proteinuria Right recurrent pleural effusion with recent history of thoracentesis Tobacco abuse Anemia likely of chronic disease Subclinical hypothyroidism Hyperkalemia Plan: Acute respiratory failure secondary to acute on chronic systolic CHF and COPD exacerbation complicated with acute on chronic renal disease stage 5: Renal function improved with dialysis. Patient to continue with dialysis at this time. Outpatient dialysis currently being set up. Anticipate discharge on Thursday after he completes treatment for UTI. Atrial fibrillation not on chronic anti coagulation therapy due to poor compliance, rate elevated: Rate better controlled. Will continue monitor. Since the patient does not desire any aggressive treatment, anti coagulation therapy is not recommended. Patient continues with aspirin 81 mg daily. Patient doing well with metoprolol to 25 mg twice daily. UTI, urine culture positive for E coli-ESBL and Enterococcus: Continue with IV antibiotic therapy meropenem 500 mg IV twice daily for total 7 days. End date next Thursday. Will hold off on PICC line since the patient has dialysis catheter. Patient can be home discharged after Thursday. Anasarca secondary to acute on chronic systolic CHF and acute on chronic renal disease stage 5: Will continue with IV Lasix. Patient to continue with dialysis. Nephrology to adjust medication. Will continue with fluid restriction. Patient to elevate legs when sitting or lying. 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 Will continue to adjust Lantus for better diabetic control. Will monitor and adjust closely. Hypertension with noted history of pulmonary hypertension: Will increase metoprolol to 25 mg twice daily. Right recurrent pleural effusion with recent history of thoracentesis: Will continue with diuresis. Continue with dialysis. Hopefully this will improve his condition. Tobacco abuse: Patient may require nicotine patch. Will monitor closely. Anemia likely of chronic disease: Overall stable. Will monitor hemoglobin closely. Subclinical hypothyroidism: Repeat tsh and free T4 reviewed. This remained stable. Recheck thyroid panel in 1 month Hyperkalemia: This remains resolved with dialysis Time Spent Managing Pts Care (In Minutes): 55
[2018-05-07] MEDS: EPOETIN ALFA 10,000 UNIT/ML VIAL IV SCH (18:42)
--- NOTE | 2018-05-07 21:25 | P.PN ---
Date of Service: 05/07/18 Vital Signs Temp Pulse Resp BP Pulse Ox 97.1 F 132 H 18 150/79 H 96 05/07/18 16:00 05/07/18 18:46 05/07/18 16:00 05/07/18 18:46 05/07/18 16:00 Medications Acetaminophen (Tylenol -Extra Strength) 500 mg PO Q4HP PRN PRN Reason: [id number] Stop: 05/30/18 17:49 Arformoterol Tartrate (Brovana) 15 mcg NEB BIDRESP ISH Stop: 05/30/18 20:01 Last Admin: 05/07/18 08:17 Dose: 15 mcg Aspirin (Aspirin Ec) 81 mg PO DAILY ISH Stop: 05/31/18 09:01 Last Admin: 05/07/18 10:04 Dose: 81 mg Calcitriol (Rocaltrol) 0.5 mcg PO DAILY ISH Stop: 06/06/18 09:01 Last Admin: 05/07/18 10:03 Dose: 0.5 mcg Cholecalciferol (Vitamin D 5,000 Iu Cap) 5,000 unit PO DAILY ISH Stop: 06/06/18 09:01 Last Admin: 05/07/18 10:03 Dose: 5,000 unit Epoetin [place] (Procrit) 10,000 unit IV EVERY HD ISH Stop: 06/04/18 08:31 Last Admin: 05/07/18 18:42 Dose: 10,000 unit Furosemide (Lasix) 80 mg IV BIDL ISH Stop: 05/31/18 09:01 Last Admin: 05/07/18 17:00 Dose: Not Given Heparin Sodium (Porcine) (Heparin 1,000 Units/Ml) 6,000 unit IV EVERY HD PRN PRN Reason: FLUSH AFTER EACH USE Stop: 06/04/18 08:19 Last Admin: 05/07/18 18:43 Dose: 6,000 unit Heparin Sodium (Porcine) (Heparin 1,000 Units/Ml) 2,000 unit IV EVERY HD ISH Stop: 05/10/18 09:01 Last Admin: 05/06/18 09:45 Dose: 2,000 unit Meropenem 500 mg/ Sodium (Chloride) 100 mls @ 100 mls/hr IV Q12HR ISH Stop: 06/02/18 09:01 Last Admin: 05/07/18 10:24 Dose: 100 mls Albumin Human (Albumin 25%) 50 mls @ 100 mls/hr IV EVERY HD ISH Stop: 06/04/18 09:01 Insulin Glargine (Lantus) 25 units SQ BEDTIME ISH Stop: 06/02/18 21:01 Last Admin: 05/06/18 22:09 Dose: 25 units Insulin Human Regular (Novolin -R) 0 unit SQ ACHS ISH; Protocol Stop: 05/31/18 07:31 Last Admin: 05/07/18 17:29 Dose: 10 unit Ipratropium [place] (Atrovent Neb) 0.5 mg NEB [id number] PRN PRN Reason: SHORTNESS OF BREATH Stop: 05/30/18 20:01 Last Admin: 05/03/18 19:14 Dose: 0.5 mg Mannitol (Mannitol 12.5 Gm/50 Ml Vial) 12.5 gm IV EVERY HD PRN PRN Reason: BP support at hemodialysis Stop: 06/04/18 08:19 Metoprolol Tartrate (Lopressor) 25 mg PO BID 6AM 6PM ISH Stop: 06/05/18 18:01 Last Admin: 05/07/18 18:46 Dose: 25 mg Ondansetron HCl (Zofran) 4 mg IV Q6HP PRN PRN Reason: NAUSEA / VOMITING Stop: 05/30/18 17:49 Pantoprazole Sodium (Protonix Tab) 40 mg PO ACB ISH Stop: 05/31/18 10:01 Last Admin: 05/07/18 10:04 Dose: 40 mg Prednisone (Deltasone) 10 mg PO BID ISH Stop: 06/02/18 21:01 Last Admin: 05/07/18 10:04 Dose: 10 mg Sevelamer Carbonate (Renvela) 1,600 mg PO TIDWM ISH Stop: 06/05/18 17:01 Last Admin: 05/07/18 17:31 Dose: 1,600 mg Sodium Chloride (Normal Saline Flush) 10 ml IV BID ISH Stop: 05/30/18 21:01 Last Admin: 05/07/18 10:05 Dose: 10 ml Microbiology Results 04/30/18 16:45 Blood - Blood Aerobic Blood Culture - Final No growth in 5 days. 04/30/18 16:45 Blood - Blood Anaerobic Blood Culture - Final No growth in 5 days. 04/30/18 16:25 Blood - Blood Aerobic Blood Culture - Final No growth in 5 days. 04/30/18 16:25 Blood - Blood Anaerobic Blood Culture - Final No growth in 5 days. Assessment/ Plan: Nephrology. Feeling better. CPS stable without CP. +KOO No acute events overnight. Vitals, medications, blood work and imaging reviewed in the chart. Vitals reviewed in the chart. General: Oriented x3, Cooperative HEENT: Atraumatic, Mucous membr. moist/pink Neck: Supple, JVD distended Respiratory: Clear to auscultation bilaterally, Normal air movement Cardiovascular: Regular rate/rhythm, No rubs, Edema Gastrointestinal: Soft and benign, Non-distended Musculoskeletal: No clubbing, No contractures. Partial foot amputation. Integumentary: No rashes, No cyanosis Neurological: Normal speech Greater than 30 minutes patient care. Laboratory Data (last 24 hrs) 04/30/18 16:25: WBC 9.5, Hgb 10.4 L, Hct 32.6 L, Plt Count 292 04/30/18 16:25: Sodium 139, Potassium 5.3 H, BUN 96 H, Creatinine 5.50 H*, Glucose 240 H, Total Bilirubin 0.8, AST 21, ALT 70, Alkaline Phosphatase 75 Imagings Data: Reason for Exam: [id number] Report Status: Signed EXAM DESCRIPTION: [place] Single View04/30/2018 5:56 pm CLINICAL HISTORY: Chest pain COMPARISON: April 04, 2018 FINDINGS: A moderate right pleural effusion is suspected with right basilar atelectasis. Mild bilateral interstitial pulmonary edema is suspected. The heart remains enlarged Conclusions/Impression: A/ ESRD. HD initiated [id number]. CKD V with proteinuria. Hyperkalemia. Acidosis. A/C Systolic CHF. DM II with proteinuria. HTN with CKD/ CHF. Anemia in chronic illness. Hypocalcemia. Rapid Afib. P/ Continue current POC and Medications. HD today as ordered. Wean prednisone as tolerated. No NSAIDS. Low sodium diet. AM labs. Daily weight. Arrange for dialysis placement.
[2018-05-07] MEDS: INSULIN GLARGINE 100 UNITS/ML SQ SCH (22:04)
[2018-05-08 04:34] VITALS: BP 120/70; TEMP 98.1
[2018-05-08 05:04] LABS: Absolute Lymphocytes (CBC) 1.2 K/uL (0.7-4.9); Absolute Monocytes 0.7 K/uL (0.1-1.3); Absolute Neutrophil 10.8 K/uL (1.8-8.0); Basophils % 0.3 % (0-1.3); Hematocrit 30.5 % (39.6-49.0); Lymphocytes % 9.1 % (15.3-44.8); MCH 30.2 pg (27.0-35.0); MCV 94.5 fL (80-100); MPV 10.8 fL (7.6-11.3); Monocytes % 5.7 % (3.3-12.3); RBC Red Blood Cell Count 3.23 M/uL (4.33-5.43)
[2018-05-08 05:23] LABS: Potassium 4.6 mmol/L (3.5-5.1); Uric Acid 6.3 mg/dL (3.5-7.2)
[2018-05-08] MEDS: METOPROLOL TAR 25 MG TAB PO SCH (05:47)
[2018-05-08] MEDS: INSULIN -REGULAR HUMAN 50 UNIT/0.5 ML ML SQ SCH (07:30)
[2018-05-08] MEDS: PANTOPRAZOLE 40MG TABLET PO SCH (07:30)
[2018-05-08 07:49] VITALS: O2SAT 97
[2018-05-08] MEDS: ARFORMOTEROL TARTRATE 15 MCG/2 ML VIAL.NEB NEB SCH (07:50)
[2018-05-08] MEDS: SEVELAMER CARBONATE 800 MG TABLET PO SCH (08:00)
[2018-05-08] MEDS: ASPIRIN EC 81 MG TAB PO SCH (09:00)
[2018-05-08] MEDS: FUROSEMIDE 40 MG/4 ML VIAL IV SCH (09:00)
[2018-05-08] MEDS: CALCITROL 0.25 MCG CAP PO SCH (09:00)
[2018-05-08] MEDS: predniSONE 10 MG TAB PO SCH (09:00)
[2018-05-08] MEDS: VITAMIN D 5,000 UNIT CAP PO SCH (09:00)
[2018-05-08] MEDS: Meropenem 500 MG in NA CHLORIDE 0.9% 100 ML IV SCH (09:00)
--- NOTE | 2018-05-08 09:10 | P.DS ---
Admission Date: 04/30/18 Discharge Date: 05/08/18 Primary Care Provider: Dr. Jones; Nephrology-Dr. Eagle; Card-Dr. Ghotra; Pulm-Dr. Yoder Disposition: AMA-LEFT AGAINST MEDICAL ADVIC Discharge Condition: GOOD Reason for Admission: Anasarca, shortness of breath Consultations: Cardiology-Dr. Ghotra Nephrology-Dr. Eagle Pulmonary-Dr. Yoder Surgery-Dr. Valenzuela Procedures: Surgery: Dialysis catheter placement Medical Problem List: Acute respiratory failure secondary to acute on chronic systolic CHF and COPD exacerbation complicated with acute on chronic renal disease stage 5 now with end-stage renal disease on dialysis Atrial fibrillation not on chronic anti coagulation therapy due to poor compliance, rate elevated Anasarca secondary to acute on chronic systolic CHF and acute on chronic renal disease stage 5 UTI, urine culture positive for E coli-ESBL Diabetes mellitus type 2, insulin-dependent, not controlled Hypertension with noted history of pulmonary hypertension with proteinuria Right recurrent pleural effusion with recent history of thoracentesis Tobacco abuse Anemia likely of chronic disease Subclinical hypothyroidism Hyperkalemia Brief History of Present Illness: 62-year-old male presented emergency room with anasarca and shortness of breath. Patient was recently hospitalized for acute respiratory failure secondary to COPD/CHF. Patient also has chronic renal disease. On his recent admission he had a thoracentesis for right pleural effusion. The patient was diuresed. It was recommended at that time that the patient would need chronic dialysis. The patient refused. The patient was ultimately discharged. Patient was seen by cardiology, nephrology and pulmonology at that time. Today the patient reported increasing edema to the lower extremities up to the abdominal region. Patient also reported increasing shortness of breath especially with exertion. Palpitations noted. Patient denies any fever, chills. Patient feels weak. In the ER patient evaluated. Initial blood pressure her on 119/95, heart rate 122, recovery of 25. Patient afebrile. White count 9.5, hemoglobin 10.4. Sodium 139 come potassium 5.3, chloride 109, bicarb 20, BUN of 96, creatinine 5.5 with a GFR of 11. [place] [id number]. Patient was admitted for further treatment. When I saw the patient ER, he appeared with increasing shortness of breath. Patient stable when not talking. Patient had labored breathing. Patient was given Lasix in the ER. Patient with past medical history of chronic renal disease stage 5, atrial fibrillation not on chronic anti coagulation therapy due to noncompliance, hypertension, diabetes, COPD, tobacco use, and anemia of chronic disease. Hospital Course: Patient presented with increasing shortness of breath and edema to the lower extremities. Patient found to have acute respiratory failure secondary to acute on chronic systolic CHF with COPD exacerbation complicated with acute on chronic renal disease stage 5 now with end-stage renal disease on dialysis. During the course of his stay patient was evaluated by cardiology, pulmonology and nephrology. His renal function declined. Dialysis was recommended. Initially the patient declined dialysis. Advanced directives were addressed in detail. Patient wishes to be DNR. Hospice information was provided. Hospice was to be set up. But after much thought and discussion with nephrology the patient decided to start and try dialysis. Surgery was consulted to place dialysis catheter. This was done successfully. Patient was started on dialysis. Arrangements for chronic dialysis as outpatient was in process. The patient remain in the hospital to continue dialysis. The patient also had a UTI positive for E coli-ESBL and Enterococcus. Meropenem was started. The patient became frustrated staying in the hospital. The patient refused to continue to stay in the hospital. The patient wished to leave AMA. Risks were addressed in detail. The patient understands risk of leaving. The patient has decided to leave AMA. He wishes not to continue with IV antibiotic therapy for the UTI. He will leave and consider outpatient dialysis. Prior to leaving I was able to get in contact with nephrology. They will make arrangements to contact the patient as an outpatient to continue dialysis on Thursday. Hepatitis panel unremarkable. At discharge patient with end-stage renal disease on dialysis. Patient will continue with a 1500 cc per day fluid restriction. At discharge he will continue with Lasix 80 mg twice daily for his CHF and end- stage renal disease. At discharge he will continue with prednisone 10 mg 1 pill twice daily for 5 days then 1 pill once daily for 5 days for his COPD exacerbation. At discharge, for his COPD, he will continue with Advair 250/50 1 puff twice daily and Ventolin HFA 2 puffs 3 times a day as needed for shortness of breath. At discharge he will continue with Calcitrol 0.5 mcg daily , vitamin-D 5000 units once daily, and Renvela 1600 mg 1 pill 3 times a day for his end-stage renal disease. Recommendation is for the patient follow up with nephrology to continue his care. The patient also had atrial fibrillation. The patient was evaluated by cardiology. Due to his poor compliance anti coagulation therapy was not recommended. This remained stable during his stay. The patient was placed on metoprolol for rate control. At discharge he will continue with aspirin 81 mg daily and metoprolol 25 mg 1 pill twice daily. Patient may follow up with cardiology as an outpatient to further monitor. Patient found to have UTI positive for E coli-ESBL and Enterococcus. Patient was started on meropenem 500 mg IV twice daily for 7 days. His end date was to be on Thursday. Patient left AMA. Patient wished not to continue with IV antibiotic therapy as an outpatient. UTI prevention is to be enforced as an outpatient. Patient received 5 days total of medication. Patient had anasarca secondary to acute on chronic systolic CHF and end-stage renal disease now on dialysis. This has improved during his stay. Patient will continue with dialysis as an outpatient if he chooses. At discharge he will continue with Lasix 80 mg 1 pill twice daily. Recommendation is to continue with a 1500 cc per day fluid restriction and low-salt diet. Recommendation to monitor his weight daily. If his weight increases by more than 5 lb he is to contact Nephrology to further address. He is to elevate his legs when sitting or lying down. Patient with diabetes mellitus type 2 insulin dependent. His insulin medication was adjusted during his stay. At discharge he will continue with Lantus 25 units subcu at bedtime. Recommendation is to maintain blood sugars less 140 fasting and less than 2 after meals. Further adjustment can be done by his PCP. Patient has hypertension with noted pulmonary hypertension. This has remained stable. At discharge he will continue with metoprolol 25 mg 1 pill twice daily. Patient with right chronic recurrent pleural effusion with history of thoracentesis. This has remained stable. This can be monitored as an outpatient. Recommendation to recheck chest x-ray in 2-4 weeks to monitor his progress. Patient has not required any oxygen at discharge. Patient with tobacco abuse. Tobacco cessation education provided. Patient with anemia likely of chronic disease. This can be monitored closely by nephrology and further addressed. Patient with subclinical hypothyroidism. Recommendation is to recheck tsh and free T4 in 4 weeks. Further evaluation and treatment can be considered after that time. Patient with hyperkalemia. This has resolved with dialysis. Recommendation to recheck BMP in 1 week to monitor his progress. Patient likely has GERD. Patient continue with Protonix 40 mg 1 pill once daily. Patient will consider hospice as an outpatient if he decides not to continue with chronic dialysis. Advanced directives in place. Patient wishes to be DNR. Patient understands his chronic medical problems and needs. Vital Signs/Physical Exam: Temp Pulse Resp BP Pulse Ox 98.1 F 136 H 19 120/70 97 05/08/18 04:00 05/08/18 05:47 05/08/18 04:00 05/08/18 05:47 05/08/18 04:00 General: Alert, In no apparent distress, Oriented x3, Other (Patient appears upset) HEENT: Atraumatic, Mucous membr. moist/pink Neck: Supple Respiratory: Diminished (Slightly diminished to the right side.) Cardiovascular: Irregular heart rate/rhythm (Atrial fibrillation, rate slightly elevated) Gastrointestinal: Normal bowel sounds, Soft and benign, Non-distended, No tenderness, No masses, No rebound, No guarding Musculoskeletal: No erythema, No tenderness, No warmth Integumentary: Tenderness/swelling (Edema to the lower extremities bilateral) Neurological: Normal speech, Normal strength at 5/5 x4 extr, Normal tone, Normal affect Laboratory Data at Discharge: WBC 12.8 K/uL (4.3-10.9) H D 05/08/18 04:26 Hgb 9.7 g/dL (13.6-17.9) L 05/08/18 04:26 Hct 30.5 % (39.6-49.0) L 05/08/18 04:26 Plt Count 184 K/uL (152-406) 05/08/18 04:26 Sodium 139 mmol/L (136-145) 05/08/18 04:26 Potassium 4.6 mmol/L (3.5-5.1) 05/08/18 04:26 BUN 61 mg/dL (7-18) H D 05/08/18 04:26 Creatinine 4.00 mg/dL (0.55-1.3) H 05/08/18 04:26 Glucose 114 mg/dL (74-106) H 05/08/18 04:26 Uric Acid 6.3 mg/dL (3.5-7.2) D 05/08/18 04:26 Phosphorus 8.1 mg/dL (2.5-4.9) H 05/06/18 04:58 Magnesium 2.6 mg/dL (1.8-2.4) H 05/05/18 05:30 Total Bilirubin 0.4 mg/dL (0.2-1.0) 05/05/18 05:30 AST 16 U/L (15-37) 05/05/18 05:30 ALT 42 U/L (12-78) 05/05/18 05:30 Alkaline Phosphatase 80 U/L (45-117) 05/05/18 05:30 Troponin I 0.02 ng/mL (0.0-0.045) 05/01/18 04:55 Triglycerides 38 mg/dL (<150) 05/01/18 04:55 Cholesterol 67 mg/dL (<200) 05/01/18 04:55 HDL Cholesterol 34 mg/dL (40-60) L 05/01/18 04:55 Cholesterol/HDL Ratio 1.97 05/01/18 04:55 Home Medications: Aspirin [Aspirin EC 81 MG] 81 mg PO DAILY #30 tablet.dr 04/05/18 Fluticasone/Salmeterol [Advair 250-50 Diskus] 1 each IH Q12HR #60 blst.w.dev 02/13 Albuterol Inhaler [Ventolin Inhaler*] 2 puff IH Q6H PRN #1 hfa.aer.ad 05/08/18 Calcitrol [Rocaltrol*] 0.5 mcg PO DAILY #60 cap 05/08/18 Cholecalciferol (Vitamin D3) [Vitamin D 5,000 IU Cap*] 5,000 unit PO DAILY #30 cap 05/08/18 Furosemide [Lasix] 80 mg PO BID #60 tablet 05/08/18 Insulin Glargine Human [Lantus*] 25 units SQ BEDTIME #1 vial 05/08/18 Metoprolol Tartrate [Lopressor*] 25 mg PO BID 6AM 6PM #60 tab 05/08/18 Pantoprazole [Protonix Tab*] 40 mg PO DAILY #30 tab 05/08/18 Sevelamer Carbonate [Renvela*] 1,600 mg PO TIDWM #180 tablet 05/08/18 predniSONE [Deltasone*] 10 mg PO SEECOM #15 tab 05/08/18 New Medications: Albuterol Inhaler [Ventolin Inhaler*] 2 puff IH Q6H PRN #1 hfa.aer.ad PRN Reason: Shortness Of Breath Calcitrol [Rocaltrol*] 0.5 mcg PO DAILY #60 cap Cholecalciferol (Vitamin D3) [Vitamin D 5,000 IU Cap*] 5,000 unit PO DAILY #30 cap Furosemide [Lasix] 80 mg PO BID #60 tablet Insulin Glargine Human [Lantus*] 25 units SQ BEDTIME #1 vial Metoprolol Tartrate [Lopressor*] 25 mg PO BID 6AM 6PM #60 tab Pantoprazole [Protonix Tab*] 40 mg PO DAILY #30 tab predniSONE [Deltasone*] 10 mg PO SEECOM #15 tab Sevelamer Carbonate [Renvela*] 1,600 mg PO TIDWM #180 tablet Patient Discharge Instructions: 1. Patient will need to follow up with his PCP in 1 week to follow up this hospitalization. 2. Patient left AMA. 3. Patient presented with increasing shortness of breath and edema to the lower extremities. Patient found to have acute respiratory failure secondary to acute on chronic systolic CHF with COPD exacerbation complicated with acute on chronic renal disease stage 5 now with end-stage renal disease on dialysis. During the course of his stay patient was evaluated by cardiology, pulmonology and nephrology. His renal function declined. Dialysis was recommended. Initially the patient declined dialysis. Advanced directives were addressed in detail. Patient wishes to be DNR. Hospice information was provided. Hospice was to be set up. But after much thought and discussion with nephrology the patient decided to start and try dialysis. Surgery was consulted to place dialysis catheter. This was done successfully. Patient was started on dialysis. Arrangements for chronic dialysis as outpatient was in process. The patient remain in the hospital to continue dialysis. The patient also had a UTI positive for E coli-ESBL and Enterococcus. Meropenem was started. The patient became frustrated staying in the hospital. The patient refused to continue to stay in the hospital. The patient wished to leave AMA. Risks were addressed in detail. The patient understands risk of leaving. The patient has decided to leave AMA. He wishes not to continue with IV antibiotic therapy for the UTI. He will leave and consider outpatient dialysis. Prior to leaving I was able to get in contact with nephrology. They will make arrangements to contact the patient as an outpatient to continue dialysis on Thursday. Hepatitis panel unremarkable. At discharge patient with end-stage renal disease on dialysis. Patient will continue with a 1500 cc per day fluid restriction. At discharge he will continue with Lasix 80 mg twice daily for his CHF and end- stage renal disease. At discharge he will continue with prednisone 10 mg 1 pill twice daily for 5 days then 1 pill once daily for 5 days for his COPD exacerbation. At discharge, for his COPD, he will continue with Advair 250/50 1 puff twice daily and Ventolin HFA 2 puffs 3 times a day as needed for shortness of breath. At discharge he will continue with Calcitrol 0.5 mcg daily , vitamin-D 5000 units once daily, and Renvela 1600 mg 1 pill 3 times a day for his end-stage renal disease. Recommendation is for the patient follow up with nephrology to continue his care. 4. The patient also had atrial fibrillation. The patient was evaluated by cardiology. Due to his poor compliance anti coagulation therapy was not recommended. This remained stable during his stay. The patient was placed on metoprolol for rate control. At discharge he will continue with aspirin 81 mg daily and metoprolol 25 mg 1 pill twice daily. Patient may follow up with cardiology as an outpatient to further monitor. 5. Patient found to have UTI positive for E coli-ESBL and Enterococcus. Patient was started on meropenem 500 mg IV twice daily for 7 days. His end date was to be on Thursday. Patient left AMA. Patient wished not to continue with IV antibiotic therapy as an outpatient. UTI prevention is to be enforced as an outpatient. Patient received 5 days total of medication. 6. Patient had anasarca secondary to acute on chronic systolic CHF and end-stage renal disease now on dialysis. This has improved during his stay. Patient will continue with dialysis as an outpatient if he chooses. At discharge he will continue with Lasix 80 mg 1 pill twice daily. Recommendation is to continue with a 1500 cc per day fluid restriction and low-salt diet. Recommendation to monitor his weight daily. If his weight increases by more than 5 lb he is to contact Nephrology to further address. He is to elevate his legs when sitting or lying down. 6. Patient with diabetes mellitus type 2 insulin dependent. His insulin medication was adjusted during his stay. At discharge he will continue with Lantus 25 units subcu at bedtime. Recommendation is to maintain blood sugars less 140 fasting and less than 2 after meals. Further adjustment can be done by his PCP. 7. Patient has hypertension with noted pulmonary hypertension. This has remained stable. At discharge he will continue with metoprolol 25 mg 1 pill twice daily. 8. Patient with right chronic recurrent pleural effusion with history of thoracentesis. This has remained stable. This can be monitored as an outpatient. Recommendation to recheck chest x-ray in 2-4 weeks to monitor his progress. Patient has not required any oxygen at discharge. 9. Patient with tobacco abuse. Tobacco cessation education provided. 10. Patient with anemia likely of chronic disease. This can be monitored closely by nephrology and further addressed. 11. Patient with subclinical hypothyroidism. Recommendation is to recheck tsh and free T4 in 4 weeks. Further evaluation and treatment can be considered after that time. 12. Patient with hyperkalemia. This has resolved with dialysis. Recommendation to recheck BMP in 1 week to monitor his progress. 13. Patient likely has GERD. Patient continue with Protonix 40 mg 1 pill once daily. 14. Patient will consider hospice as an outpatient if he decides not to continue with chronic dialysis. Advanced directives in place. Patient wishes to be DNR. Patient understands his chronic medical problems and needs. Diet: Renal Activity: Fall precautions Time spent managing pt's care (in minutes): 55
== END 2018-05-08 10:20 | disposition left against medical advice (07) | DRG 291 ==
LOC: ER 15:15 → ERHOLD 17:38 → 3RD-ICU 20:06 → 2ND 05-02 09:53
PROVIDERS: ADMIT Family Medicine; ATTEND Family Medicine
PROC: 05H533Z Insertion of Infusion Device into Right Subclavian Vein, Percutaneous Approach (ICD-10-PCS; 2018-05-05)
PROC: B516YZA Fluoroscopy of Right Subclavian Vein using Other Contrast, Guidance (ICD-10-PCS; 2018-05-05)
PROC: 5A1D70Z Performance of Urinary Filtration, Intermittent, Less than 6 Hours Per Day (ICD-10-PCS; 2018-05-05)
PROC: 0JH63XZ Insertion of Tunneled Vascular Access Device into Chest Subcutaneous Tissue and Fascia, Percutaneous Approach (ICD-10-PCS; principal; 2018-05-05 09:30)
PROC: 5A1D70Z Performance of Urinary Filtration, Intermittent, Less than 6 Hours Per Day (ICD-10-PCS; 2018-05-06)
PROC: 5A1D70Z Performance of Urinary Filtration, Intermittent, Less than 6 Hours Per Day (ICD-10-PCS; 2018-05-07)
DX: I13.2 Hypertensive heart and chronic kidney disease with heart failure and with stage 5 chronic kidney disease, or end stage renal disease (principal); J96.00 Acute respiratory failure, unspecified whether with hypoxia or hypercapnia; I50.23 Acute on chronic systolic (congestive) heart failure; N18.6 End stage renal disease; N17.9 Acute kidney failure, unspecified; J44.1 Chronic obstructive pulmonary disease with (acute) exacerbation; E87.2 Acidosis; N39.0 Urinary tract infection, site not specified; E11.22 Type 2 diabetes mellitus with diabetic chronic kidney disease; E11.65 Type 2 diabetes mellitus with hyperglycemia; Z79.4 Long term (current) use of insulin; I48.91 Unspecified atrial fibrillation; F17.210 Nicotine dependence, cigarettes, uncomplicated; D63.8 Anemia in other chronic diseases classified elsewhere; Z88.0 Allergy status to penicillin; Z89.431 Acquired absence of right foot; Z91.19 Patient's noncompliance with other medical treatment and regimen; E02 Subclinical iodine-deficiency hypothyroidism; Z66 Do not resuscitate; E87.5 Hyperkalemia; R80.8 Other proteinuria; E83.51 Hypocalcemia; B96.20 Unspecified Escherichia coli [E. coli] as the cause of diseases classified elsewhere; B95.2 Enterococcus as the cause of diseases classified elsewhere; K21.9 Gastro-esophageal reflux disease without esophagitis; Z68.30 Body mass index [BMI] 30.0-30.9, adult
CPT/HCPCS: 36415; 71045; 71046; 76000; 80048; 80053; 80061; 80074; 80076; 81001; 82043; 82550; 82553; 82570; 82962; 83735; 83880; 84100; 84145; 84439; 84443; 84484; 84550; 85025; 86317; 87040; 87077; 87086; 87088; 87186; 90935; 93005; 96374; 96375; 99285; C1752; C9113; J0690; J1644; J1940; J2001; J2704; J2930; J3010; J7512; J7605; Q4081